=== PATIENT | male | born 1960 | race Caucasian/White ===

== ENCOUNTER 2024-07-20 14:28 | Observation (INO) ==
--- OUTSIDE RECORDS SUMMARY | 2024-07-20 14:33 | External Medical Summary | Summary of Care ---
Author Name Unknown Organization [facility] Address [address] [place] [address] Phone [phone] Care Team Providers Care Sales Architect Name Role Phone Elaine Granados DO Primary Care Provider Reason for Visit * Reason Comments eRx-Medication Refill Encounter Details Date Type Department Care Team (Late st Contact Info) Description 07/05/[address] [facility] [address] [place] [address] Elaine Granados DO [address] [facility] [place] [address] Anxiety state Allergies No known active allergiesdocumented as of this encounter (statuses as of 07/05/2024) Medications ASPIRIN 81 MG PO TABS Take by mouth 2 times a day. Active cholecalciferol , VIT D3, (VITAMIN D3) 1000 UNITS Tablet Take 1 Tablet by mouth in the morning. 6 Active Eye Drops 0.012-0.2 % Ophthalmic Solution (Naphazoline-Po lyethyl Glycol) Instill 1 Drop into both eyes as needed. Active Vitamin C 500 MG Oral Tablet (Ascorbic Acid) Take 1 Tablet by mouth in the morning. Active Potassium 99 MG Oral Tablet Take 1 Tablet by mouth in the morning. Active Iron 142 (45 Fe) MG Oral Tablet Extended Release Take by mouth 2 times a day. Active Magnesium 250 MG Oral Tablet Take 1 Tablet by mouth in the morning and 1 Tablet before bedtime. Active Super B-Complex + Vitamin C Oral Tablet Take by mouth 2 times a day. Active Vitamin E 45 MG (100 UNIT) Oral Capsule Take by mouth 2 times a day. Active guaiFENesin ER 600 MG Oral Tablet Extended Release 12 Hour (Mucinex)Indica tions:Protracte d URI Take 1 Tablet by mouth 2 times a day as needed for Congestion. Take with plenty of water. Do not cut, crush or chew 40 Tablet 2 3 Active busPIRone HCl 10 MG Oral Tablet (Buspar)Indicat ions:Mood disorder (HCC) Take 1 Tablet by mouth in the morning and 1 Tablet before bedtime. 180 Tablet 3 4 Active Carvedilol 6.25 MG Oral Tablet (Coreg) Take 1 Tablet by mouth in the morning and 1 Tablet before bedtime. 68 Tablet 11 4 Active Omeprazole 20 MG Oral Capsule Delayed Release (PriLOSEC) TAKE 1 CAPSULE BY MOUTH ONCE DAILY at least 1 hour before first meal 90 Capsule 4 Active Tadalafil 5 MG Oral Tablet (Cialis)Indicat ions:Erectile dysfunction, unspecified erectile dysfunction type Take 1 Tablet by mouth in the morning. prior to intercourse , no more than 1 dose in 24 hours. 30 Tablet 5 Active Ventolin HFA 108 (90 Base) MCG/ACT Inhalation Aerosol Solution Inhale 2 Puffs by mouth every 4 hours as needed for Wheezing. 18 g 5 Active traZODone HCl 100 MG Oral Tablet (Desyrel) TAKE 1 TABLET BY MOUTH AT BEDTIME 90 Tablet 3 5 Active Rosuvastatin Calcium 40 MG Oral Tablet (Crestor) Take 1 Tablet by mouth at bedtime. 90 Tablet 1 5 Active Losartan Potassium 50 MG Oral Tablet (Cozaar)Indicat ions:HTN, goal below 130/80 Take 1 Tablet by mouth in the morning. 90 Tablet 1 5 Active Terazosin HCl 1 MG Oral Capsule (Hytrin)Indicat ions:HTN, goal below 130/80 Take 1 Capsule by mouth at bedtime. 90 Capsule 1 5 Active valACYclovir HCl 500 MG Oral Tablet (Valtrex) Take 1 Tablet by mouth in the morning and 1 Tablet before bedtime. 180 Tablet 1 5 Active Escitalopram Oxalate 10 MG Oral Tablet (Lexapro)Indica tions:Anxiety state Take 1 Tablet by mouth in the morning. 30 Tablet 5 5 Active Escitalopram Oxalate 10 MG Oral Tablet (Lexapro)Indica tions:Anxiety state Take 1 Tablet by mouth in the morning. 30 Tablet 2 5 025 Discontinued documented as of this encounter (statuses as of 07/05/2024) Active Problems Problem Noted Date Diagnosed Date Mood disorder 01/09/2023 YISEL (generalized anxiety disorder) 11/09/2022 Lumbar degenerative disc disease 11/09/2022 Gastroesophageal reflux disease with esophagitis 01/03/2019 Dyslipidemia 03/15/2009 Overview (03/15/2009): Per Lipid Taxonomy. HTN, goal below 130/80 02/18/2009 Overview (02/18/2009): Modified per HTN protocol #16. documented as of this encounter (statuses as of 07/05/2024) Resolved Problems Problem Noted Date Diagnosed Date Resolved Date Thrombocytopenia 12/15/2021 12/15/2021 Trigger finger of right thumb 06/02/2020 11/09/2022 Carpal tunnel syndrome, bilateral 01/30/2020 11/09/2022 Mood disorder 01/03/2019 11/09/2022 Corneal scar 06/03/2012 11/09/2022 Swelling of right testicle 03/01/2012 0 05/17/2012 Herpes simplex keratitis 10/01/2007 HTN, goal to be determined 05/09/2007 1 04/20/2008 Overview (02/18/2009): Modified per HTN protocol #16. Dyslipidemia, goal LDL below 160 05/09/2007 03/15/2009 Overview (03/15/2009): Per Lipid Taxonomy. documented as of this encounter (statuses as of 07/05/2024) Immunizations Name Administration Dates Next Due COVID-19 mRNA, LNP-s, No Pre serve, 2-Dose Series (Moderna) 07/26/2020,06/28/2020 COVID-19, mRNA, LNP-s, PF, B ooster, 100mcg/0.5mg (Moderna) 07/21/2021,02/11/2021 Pneumococcal Conjugate Vacci ne, 20-valent ([id number]) 05/02/2024 Seasonal Influenza Vac., MDV , IM, 0.5 mL (Fluzone) 01/13/2014,12/19/2011,02/22/2011 Seasonal Influenza, PF, 6 M & above, IM , (FluLaval or Fluzone) 02/16/2023,12/15/2021,12/09/2020,2019 Seasonal Influenza, Quadriva lent, No Preserve, IM 12/15/2015 Seasonal Influenza, Trivalen t, (IIV3), PF, (Fluzone) 05/02/2024 TDAP (age 10 and older)(Boostrix) 12/09/2020 TDAP, Age 7 and older, IM (Adacel) 10/27/2010 Zoster Vaccine Recombinant (Shingrix) 03/15/2020 ,12/12/2017 documented as of this encounter Social History Tobacco Use Types Packs/Day Years Used Date Smoking Tobacco: Never Smokeless Tobacco: Never Alcohol Use Standard Drinks/Week Comments Yes 0 (1 standard drink = 0.6 oz pur e alcohol) glass of wine on occasion PHQ-2 Answer Date Recorded PHQ Adult Total Score 0 05/02/2024 Hunger Vital Sign Answer Date Recorded Within the past 12 months, y ou worried that your food would run out before you got the money to buy more. Never true 05/02/19 25 Within the past 12 months, t he food you bought just didn't last and you didn't have money to get more. Never true 05/02/2024 Childcare Answer Date Recorded Do you feel overwhelmed with taking care of a child, family member or friend? No 05/02/2024 Does your family need help f inding childcare? (Household - for ages 0-17 years) Not on file 05/02/2024 Clothing Answer Date Recorded Have you been unable to get clothing when it was really needed? No 05/02/2024 Is your family able to get c lothes or diapers when needed? (Household - for ages 0-17 years) Not on file 05/02/2024 Personal Safety Answer Date Recorded Do you feel unsafe or have concerns for your saf ety? No 05/02/2024 Do you have concerns for you r family's safety? (Household - for ages 0-17 years) Not on file 05/02/2024 Utilities Answer Date Recorded Do you have trouble paying y our heating, water, or electric bill? No 05/02/2024 Is your family able to pay t he heat, water, or electric bill? (Household - for ages 0-17 years) Not on file 05/02/2024 Does your family have access to good internet? (Household - for ages 0-17 years) Not on file 05/02/2024 Employment Status Answer Date Recorded Are you unemployed or without regular income? No 05/02/2024 Does the household have a re lar source of income? (Household - for ages 0-17 years) Not on file 05/02/2024 Social Connections Answer Date Recorded How often do you feel lonely or isolated from th ose around you? Never 05/02/2024 Financial Resource Strain Answer Date R ecorded Do you have any trouble payi ng for your medications, or do you think you might in the future? No 05/02/2024 Does your family have troubl e paying for medicine? (Household - for ages 0-17 years) Not on file 05/02/2024 Transportation Needs Answer Date Record ed Do you have trouble getting a ride to medical visits or work? (Adult - for ages 18 years and over) Not on file 05/02/2024 Does your family have a hard time getting a ride to doctors visits? (Household - for ages 0-17 years) Not on file 05/02/2024 Has lack of transportation k ept you from medical appointments, meetings, work, or from getting things needed for daily living? Check all that apply. No 05/02/2024 Do you (or your family) have trouble finding or paying for a ride (transportation)? (Household - for ages 0-17 years) Not on file 05/02/2024 Housing Stability Answer Date Recorded Do you currently live in a s helter or have no steady place to sleep at night? No 05/02/2024 Do you think you are at risk of becoming homeless? (Adult - for ages 18 years and over) Not on file 05/02/2024 Does your family worry about paying for your home or becoming homeless? (Household - for ages 0-17 years) Not on file 0 05/02/2024 Are you homeless or worried that you might be in the future? No 05/02/2024 Are you (or your family) brenna eless or worried that you might be in the future? (Household - for ages 0-17 years) Not on file Food Insecurity Answer Date Recorded Do you need food for this week? No 05/02/2024 Are you able to get enough f ood for your family? (Household - for ages 0-17 years) Not on file 05/02/2024 Does your family need food t his week? (Household - for ages 0-17 years) Not on file 05/02/2024 Do you always have enough fo od for your family? (Household - for ages 0-17 years) Not on file 05/02/2024 Food Insecurity Answer Date Recorded Within the past 12 months, y ou worried that your food would run out before you got the money to buy more. Never true 05/02/19 25 Within the past 12 months, t he food you bought just didn't last and you didn't have money to get more. Never true 05/02/2024 Do you need food for this week? No 05/02/2024 Sex and Gender Information Value Date Recorded Sex Assigned at Male 11/09/2022 2:08 PM EDT Legal Sex Male 4:56 AM EST Gender Identity Male 11/09/2022 2:08 PM EDT Sexual Orientation Straight 11/09/2022 2: 08 PM EDT documented as of this encounter Miscellaneous Notes * Telephone Encounter - Mena Higgins [facility] - 07/05/2024 4:13 PM EDT Signed Prescriptions: Disp Refills Escitalopram Oxalate 10 MG Oral Tablet (Le*30 Tab*5 Sig: Take 1Tablet by mouth in the morning.Authorizing Provider: ELAINE GRANADOS User: MENA HIGGINS documented in this encounter Plan of Treatment Upcoming Encounters Date Type Department Care Team (Late st Contact Info) Description 11/07/2024 9:00 AM EDT Office Visit Nephrology, [facility] [address] [place] [address] [facility] [address] [facility] [id number] 05/07/2025 8:00 AM EST Office Visit Cardiology, [facility] [address] [place] [phone] Janet Carr PA-C [address] [place] [address] 07/03/2025 9:00 AM EDT Office Visit OphthalmologyDavid [address] [place] [address] [facility] [place] [phone] Scheduled Procedures Name Priority Associated Diagnoses Date/Ti me COLONOSCOPY FLEXIBLE PROXIMA L DIAGNOSTIC Recall Encounter for screening colonoscopy Health Maintenance Due Date Last Done Comments Cologuard 2005 Fecal Occult Blood Test 2005 Sigmoidoscopy 2005 COVID-19 Vaccine ( season) 2023 07/21/2021, 02/11/2021, 07/26/2020, Additional history exists Depression Screening 05/02/2025 05/02/2024 GFR 05/20/2025 05/20/2024, 04/04, 03/06/2023, Additional history exists Colonoscopy 12/06/2026 12/06/2021, 08/2021, 12/30/2015, Additional history exists Colorectal Cancer Screening 12/06/2026 Albumin/Creatinine Ratio 05/02/2027 025, 12/15/2021, 02/03/2014, Additional history exists Lipid Panel 05/01/2029 05/01/2024, 07/2022, 04/20/2022, Additional history exists DTap/Tdap Vaccines (3 - Td or Tdap) 12/09/2030 12/09/2020, 10/27/2010 Zoster Vaccines Completed 03/15/2020, 12/12/2017 RETIRED - COLONOSCOPY-EVERY 5 YRS AGES 18-100 Discontinued 12/06/2021, 12/06/2021, 12/30/2015, Additional history exists Influenza Vaccine (FLU shot) Completed 05/02/2024, 02/16/2023, 12/15/2021, Additional history exists Pneumococcal Vaccine: 50+ Years Completed 05/02/2024 HPV (Gardasil) Vaccine Aged Out No lo nger eligible based on patient's age to complete this topic Hepatitis B Vaccine Aged Out No longe r eligible based on patient's age to complete this topic MENINGOCOCCAL (MENACTRA/MENVEO) Aged Out No longer eligible based on patient's age to complete this topic Meningitis B Vaccine (Bexsero/Trumemba) Aged Out No longer eligible based on patient's age to complete this topic documented as of this encounter Medical Devices Implanted Type Area Director Gift Device Identifier Shelf Expiration Date Model / Serial / Lot Mesh 3dmax 3.1x5.3in Lft Med - [id number] Implanted:Qty: 1 on 12/31/2020 by Brendan Landers MD at [facility] Left: Groin CR BARD : DAVOL 04/29/2025 [id number] / / [id number] Plt A2 Mtp Cp Rt T8 - [id number] Implanted:Qty: 1 on 01/23/2023 by Ching Patiño DPM at OR [facility] Right: Foot HUA : TRAUMA [id number] / / Screw Lag Cp 3.6x26mm - [id number] Implanted:Qty: 1 on 01/23/2023 by Ching Patiño DPM at OR [facility] Right: Foot HUA : ORTHOPA[employer]ICS [id number] / / Screw Bn T8 Ft St Lk 2.7x16mm - [id number] Implanted:Qty: 2 on 01/23/2023 by Ching Patiño DPM at OR [facility] Right: Foot HUA : ORTHOP[employer]ICS [id number] / / Screw Cortical 2.7x18mm - [id number] Implanted:Qty: 1 on 01/23/2023 by Ching Patiño DPM at OR [facility] Right: Foot HUA : ORTH[employer] [id number] / / Screw Locking 2.7x20mm - [id number] Implanted:Qty: 1 on 01/23/2023 by Ching Patiño DPM at [facility] Right: Foot HUA : ORTHOP[employer] [id number] / / documented as of this encounter Visit Diagnoses Diagnosis Anxiety state Anxiety state, unspecified documented in this encounter Advance Directives * Full Code (Latest Code Status on File) Date Activated Date Inactivated Comments 12/31/2020 10:43 AM 12/31/2020 6:05 PM This order reflects the patients wishes and were consensually agreed upon. Care Teams Sales Architect Relationship Specialty Start Date End Date Elaine Granados DO [address] [place] [address] PCP - General Family Medicine 10/01/20 documented as of this encounter
--- OUTSIDE RECORDS SUMMARY | 2024-07-20 14:33 | External Medical Summary | Summary of Care ---
Author Name Unknown Organization [facility] Address [address] [facility] [place] [address] Phone [phone] Care Team Providers Care Bullet Maker Name Role Phone Elaine Granados DO Primary Care Provider Reason for Visit * Reason Comments eRx-Medication Refill Encounter Details Date Type Department Care Team (Late st Contact Info) Description 06/08/2024 Refill Family Practice [facility] [address] [place] [address] Elaine Granados DO 132 [facility] [place] [address] HTN, goal below 130/80 Allergies No known active allergiesdocumented as of this encounter (statuses as of 06/09/2024) Medications ASPIRIN 81 MG PO TABS Take [...] before first meal 90 Capsule 4 Active Escitalopram Oxalate 10 MG Oral Tablet (Lexapro)Indica tions:Anxiety state Take 1 Tablet by mouth in the morning. 30 Tablet 2 5 Active Tadalafil 5 MG Oral Tablet (Cialis)Indicat [...] before bedtime. 180 Tablet 1 5 Active Terazosin HCl 1 MG Oral Capsule (Hytrin)Indicat ions:HTN, goal below 130/80 Take 1 Capsule by mouth at bedtime. 90 Capsule 3 4 025 Discontinued valACYclovir HCl 500 MG Oral Tablet (Valtrex) Take 1 Tablet by mouth in the morning and 1 Tablet before bedtime. 180 Tablet 3 4 025 Discontinued documented as of this encounter (statuses as of 06/09/2024) Active Problems Problem Noted Date Diagnosed Date Mood disorder 01/09/2023 YISEL (generalized anxiety disorder) 11/09/2022 Lumbar degenerative disc disease 11/09/2022 Gastroesophageal reflux disease with esophagitis 01/03/2019 Dyslipidemia 03/15/2009 Overview (03/15/2009): Per Lipid Taxonomy. HTN, goal below 130/80 02/18/2009 Overview (02/18/2009): Modified per HTN protocol #16. documented as of this encounter (statuses as of 06/09/2024) Resolved Problems Problem Noted Date Diagnosed Date [...] as of this encounter (statuses as of 06/09/2024) Immunizations Name Administration Dates Next Due COVID-19 mRNA, LNP-s, No Pre serve, 2-Dose Series (Moderna) 07/26/2020,06/28/2020 COVID-19, mRNA, LNP-s, PF, B ooster, 100mcg/0.5mg (Moderna) 07/21/2021,02/11/2021 Pneumococcal Conjugate Vacci ne, 20-valent ([id number]) 05/02/2024 Seasonal Influenza Vac., MDV , IM, [...] encounter Miscellaneous Notes * Telephone Encounter - Chanda Vu RPh - 06/09/2024 2:49 PM EDTSigned Prescriptions: Disp Refills Terazosin HCl 1 MG Oral Capsule (Hytrin) 90 Cap*1 Sig: Take 1 Capsule by mouth at bedtime.Authorizing Provider: ELAINE GRANADOS User: CHANDA VU valACYclovir HCl 500 MG Oral Tablet (Valtr*180 Ta*1 Sig: Take 1 Tablet by mouth in the morning and 1 Tablet before bedtime.Authorizing Provider: ELAINE GRANADOS User: CHANDA VU documented in this encounter Plan of Treatment Upcoming Encounters Date Type Department Care Team (Late st Contact Info) Description 11/07/2024 9:00 AM EDT Office Visit Nephrology, [facility] [address] [facility] [place] [address] Chitra Chao MD [address] [place] [phone] 05/07/2025 8:00 AM EST Office Visit Cardiology, [facility] [address] [facility] [place] [address] Janet Carr PA-C [address] [place] [address] 07/03/2025 9:00 AM EDT Office Visit Ophthalmology, [facility] [address] [place] [address] Elito Guaman DO [address] [place] [address] Scheduled Procedures Name Priority Associated Diagnoses Date/Ti [...] this encounter Medical Devices Implanted Type Area Advertising Job Titles Device Identifier Shelf Expiration Date Model / Serial / Lot Mesh 3dmax 3.1x5.3in Lft Med - [id number] Implanted:Qty: 1 on 12/31/2020 by Brendan Landers MD at OR [facility] Left: Groin CR BARD : DAVOL 04/29/2025 [id number] / / [id number] Plt A2 Mtp Cp Rt T8 - [id number] Implanted:Qty: 1 on 01/23/2023 by Ching Patiño DPM at [facility] Right: Foot HUA : TRAUMA [id number] / / Screw Lag Cp 3.6x26mm - [id number] Implanted:Qty: 1 on 01/23/2023 by Ching Patiño DPM at [facility] Right: Foot HUA : ORTH[employer]ICS [id number] / / Screw Bn T8 Ft St Lk 2.7x16mm - [id number] Implanted:Qty: 2 on 01/23/2023 by Ching Patiño DPM at [facility] Right: Foot HUA : ORTH[employer] [id number] / / Screw Cortical 2.7x18mm - [id number] Implanted:Qty: 1 on 01/23/2023 by Ching Patiño DPM at [facility] Right: Foot HUA : ORTH[employer] [id number] / / Screw Locking 2.7x20mm - [id number] Implanted:Qty: 1 on 01/23/2023 by Ching Patiño DPM at [facility] Right: Foot HUA : ORTHOPAEDICS [id number] / / documented as of this encounter Visit Diagnoses Diagnosis HTN, goal below 130/80 Unspecified essential hypertension documented in this encounter Advance Directives * Full Code (Latest Code Status on File) Date Activated Date Inactivated Comments 12/31/2020 10:43 AM 12/31/2020 6:05 PM This order reflects the patients wishes and were consensually agreed upon. Care Teams Bullet Maker Relationship Specialty Start Date End Date Elaine Granados DO [address] [place] [address] PCP - General Family Medicine 10/01/20 documented as of this encounter
--- OUTSIDE RECORDS SUMMARY | 2024-07-20 14:33 | External Medical Summary | Summary of Care ---
Author Name Unknown Organization [facility] Address [address] [place] [address] Phone [phone] Care Team Providers Care Paper Box Maker Name Role Phone Derrick Granados Primary Care Provider Reason for Visit * Reason Onset Date Comments Test Results 05/22/2024 Encounter Details Date Type Department Care Team (Late st Contact Info) Description 05/22/2024 Telephone Nephrology, [place] [address] [place] [address] Jose R James MD 200 [facility] [place] [address] Test Results Allergies No known active allergiesdocumented as of this encounter (statuses as of 05/22/2024) Medications ASPIRIN 81 MG PO TABS Take by mouth 2 times a day. Active cholecalciferol, VIT D3, (VITAMIN D3) 1000 UNITS Tablet Take 1 Tablet by mouth in the morning. 12/13/2015 Active Eye Drops 0.012-0.2 % Ophthalmic Solution (Naphazoline-Andriy yethyl Glycol) Instill 1 Drop into both eyes [...] MG Oral Tablet Extended Release 12 Hour (Mucinex)Indicat ions:Protracted URI Take 1 Tablet by mouth 2 times a day as needed for Congestion. Take with plenty of water. Do not cut, crush or chew 40 Tablet 2 01/30/2023 Active busPIRone HCl 10 MG Oral Tablet (Buspar)Indicati ons:Mood disorder (HCC) Take 1 Tablet by mouth in the morning and 1 Tablet before bedtime. 180 Tablet 3 06/07/2023 Active Losartan Potassium 50 MG Oral Tablet (Cozaar)Indicati ons:HTN, goal below 130/80 Take 1 Tablet by mouth in the morning. 90 Tablet 3 06/07/2023 Active Rosuvastatin Calcium 40 MG Oral Tablet (Crestor) Take 1 Tablet by mouth at bedtime. 90 Tablet 3 06/07/2023 Active Terazosin HCl 1 MG Oral Capsule (Hytrin)Indicati ons:HTN, goal below 130/80 Take 1 Capsule by mouth at bedtime. 90 Capsule 3 06/07/2023 Active valACYclovir HCl 500 MG Oral Tablet (Valtrex) Take 1 Tablet by mouth in the morning and 1 Tablet before bedtime. 180 Tablet 3 06/07/2023 Active Carvedilol 6.25 MG Oral Tablet (Coreg) Take 1 Tablet by mouth in the morning and 1 Tablet before bedtime. 68 Tablet 11 06/12/2023 Active Omeprazole 20 MG Oral Capsule Delayed Release (PriLOSEC) TAKE 1 CAPSULE BY MOUTH ONCE DAILY at least 1 hour before first meal 90 Capsule 02/27/2024 Active Escitalopram Oxalate 10 MG Oral Tablet (Lexapro)Indicat ions:Anxiety state Take 1 Tablet by mouth in the morning. 30 Tablet 2 04/13/2024 Active Tadalafil 5 MG Oral Tablet (Cialis)Indicati ons:Erectile dysfunction, unspecified erectile dysfunction type Take 1 Tablet by mouth in the morning. prior to intercourse, no more than 1 dose in 24 hours. 30 Tablet 05/02/2024 Active Ventolin HFA 108 (90 Base) MCG/ACT Inhalation Aerosol Solution Inhale 2 Puffs by mouth every 4 hours as needed for Wheezing. 18 g 05/05/2024 Active traZODone HCl 100 MG Oral Tablet (Desyrel) TAKE 1 TABLET BY MOUTH AT BEDTIME 90 Tablet 3 05/12/2024 Active documented as of this encounter (statuses as of 05/22/2024) Active Problems Problem Noted Date Diagnosed Date Mood disorder 01/09/2023 YISEL (generalized anxiety disorder) 11/09/2022 Lumbar degenerative disc disease 11/09/2022 Gastroesophageal reflux disease with esophagitis 01/03/2019 Dyslipidemia 03/15/2009 Overview (03/15/2009): Per Lipid Taxonomy. HTN, goal below 130/80 02/18/2009 Overview (02/18/2009): Modified per HTN protocol #16. documented as of this encounter (statuses as of 05/22/2024) Resolved Problems Problem Noted Date Diagnosed Date [...] as of this encounter (statuses as of 05/22/2024) Immunizations Name Administration Dates Next Due COVID-19 mRNA, LNP-s, No Pre serve, 2-Dose Series (Moderna) 07/26/2020,06/28/2020 COVID-19, mRNA, LNP-s, PF, B ooster, 100mcg/0.5mg (Moderna) 07/21/2021,02/11/2021 Pneumococcal Conjugate Vacci ne, 20-valent ([id number]) 05/02/2024 Seasonal Influenza Vac., MDV , IM, [...] encounter Miscellaneous Notes * Telephone Encounter - Tamie Rutherford LPN - 05/22/2024 9:33 AM EST Pt is made aware labs stable almost completely normal Continue the same * Telephone Encounter - Tamie Rutherford LPN - 05/22/2024 9:33 AM EST ----- Message from Jose R James MD sent at 05/21/2024 12:29 PM EST ----- Kidney function stable and almost completely normal continue same documented in this encounter Plan of Treatment Upcoming Encounters Date Type Department Care Team (Late st Contact Info) Description 11/07/2024 9:00 AM EDT Office Visit Nephrology, [facility] 200 [facility] [place] [address] Chitra Chao MD [address] [place] [phone] 05/07/2025 8:00 AM EST Office Visit Cardiology, [facility] [address] [place] [address] Janet Carr PA-C [address] [place] [address] 07/03/2025 9:00 AM EDT Office Visit OphthalmologyDavid [address] [place] [address] Eliot Guaman DO [address] [place] [address] Scheduled Procedures Name Priority Associated Diagnoses Date/Ti [...] Additional history exists Lipid Panel 05/01/2029 05/01/2024, 12/07/2022, 04/20/2022, Additional history exists DTap/Tdap Vaccines (3 [...] this encounter Medical Devices Implanted Type Area Refrigeration Mechanic Helper Device Identifier Shelf Expiration Date Model / Serial / Lot Mesh 3dmax 3.1x5.3in t Med - [id number] Implanted:Qty: 1 on 12/31/2020 by Brendan Landers MD at OR [facility] Left: Groin CR BARD : DAVOL 04/29/2025 [id number] / / [id number] Plt A2 Mtp Cp Rt T8 - [id number] Implanted:Qty: 1 on 01/23/2023 by Ching Patiño DPM at OR [facility] Right: Foot HUA : TRAUMA [id number] / / Screw Lag Cp 3.6x26mm - [id number] Implanted:Qty: 1 on 01/23/2023 by Ching Patiño DPM at OR [facility] Right: Foot HUA : ORTHOPAEDICS [id number] / / Screw Bn T8 Ft St Lk 2.7x16mm - [id number] Implanted:Qty: 2 on 01/23/2023 by Ching Patiño DPM at OR [facility] Right: Foot HUA : ORTHOPAEDICS [id number] / / Screw Cortical 2.7x18mm - [id number] Implanted:Qty: 1 on 01/23/2023 by Ching Patiño DPM at OR [facility] Right: Foot HUA : ORTHOPAEDICS [id number] / / Screw Locking 2.7x20mm - [id number] Implanted:Qty: 1 on 01/23/2023 by Ching Patiño DPM at OR [facility] Right: Foot HUA : ORTHOPAEDICS [id number] / / documented as of this encounter Advance Directives * Full Code (Latest Code Status on File) Date Activated Date Inactivated Comments 12/31/2020 10:43 AM 12/31/2020 6:05 PM This order reflects the patients wishes and were consensually agreed upon. Care Teams Paper Box Maker Relationship Specialty Start Date End Date Derrick Granados DO 132 [facility] [place] [address] PCP - General Family Medicine 10/01/20 documented as of this encounter
--- OUTSIDE RECORDS SUMMARY | 2024-07-20 14:33 | External Medical Summary | Summary of Care ---
Author Name Unknown Organization [facility] Address [address] [facility] [address] Phone [phone] Care Team Providers Care Clerk Television Production Name Role Phone Derrick Granados DO Primary Care Provider Reason for Visit * Reason Comments eRx-Medication Refill Encounter Details Date Type Department Care Team (Late st Contact Info) Description 07/04/2024 Refill Cardiology, [facility] [address] [place] [phone] Brendan Yoo DO [address] [place] [address] Allergies No known active allergiesdocumented as of this encounter (statuses as of 07/06/2024) Medications ASPIRIN 81 MG PO TABS Take [...] before bedtime. 180 Tablet 3 4 Active Omeprazole 20 MG Oral Capsule [...] before bedtime. 180 Tablet 1 5 Active Carvedilol 6.25 MG Oral Tablet (Coreg) TAKE ONE TABLET BY MOUTH IN THE MORNING AND ONE TABLET BEFORE BEDTIME 180 Tablet 1 5 Active Carvedilol 6.25 MG Oral Tablet (Coreg) Take 1 Tablet by mouth in the morning and 1 Tablet before bedtime. 68 Tablet 11 4 025 Discontinued documented as of this encounter (statuses as of 07/06/2024) Active Problems Problem Noted Date Diagnosed Date Mood disorder 01/09/2023 YISEL (generalized anxiety disorder) 11/09/2022 Lumbar degenerative disc disease 11/09/2022 Gastroesophageal reflux disease with esophagitis 01/03/2019 Dyslipidemia 03/15/2009 Overview (03/15/2009): Per Lipid Taxonomy. HTN, goal below 130/80 02/18/2009 Overview (02/18/2009): Modified per HTN protocol #16. documented as of this encounter (statuses as of 07/06/2024) Resolved Problems Problem Noted Date Diagnosed Date [...] as of this encounter (statuses as of 07/06/2024) Immunizations Name Administration Dates Next Due COVID-19 mRNA, LNP-s, No Pre serve, 2-Dose Series (Moderna) 07/26/2020,06/28/2020 COVID-19, mRNA, LNP-s, PF, B ooster, 100mcg/0.5mg (Moderna) 07/21/2021,02/11/2021 Pneumococcal Conjugate Vacci ne, 20-valent ([id number]) 05/02/2024 Seasonal Influenza Vac., MDV , IM, [...] encounter Miscellaneous Notes * Telephone Encounter - Frank Castillo, [facility] - 07/06/2024 11:22 AM EDT Signed Prescriptions: Disp Refills Carvedilol 6.25 MG Oral Tablet (Coreg) 180 Ta*1 Sig: TAKE ONE TABLET BY MOUTH IN THE MORNING AND ONE TABLET BEFORE BEDTIMEAuthorizing Provider: AUREA ARCOS User: FRANK CASTILLO * Telephone Encounter - Interface, [facility] - 07/06/2024 6:02 AM EDT Pending Prescriptions: Disp Refills Carvedilol 6.25 MG Oral Tablet [Pharmacy M*68 Tab*0 Sig: TAKE ONE TABLET BY MOUTH IN THE MORNING AND ONE TABLET BEFORE BEDTIME * Telephone Encounter - Bryan Velázquez two - 07/04/2024 9:32 PM EDTPending Prescriptions: Disp Refills Carvedilol 6.25 MG Oral Tablet [Pharmacy M*68 Tab*0 Sig: TAKE ONE TABLET BY MOUTH IN THE MORNING AND ONE TABLET BEFORE BEDTIME * Telephone Encounter - Bryan Velázquez - 07/04/2024 9:29 PM EDT Did you pend patient's preferred pharmacy and medication before forwarding?yes Pharmacy: [facility] [id number] Pending Prescriptions: Disp Refills Carvedilol 6.25 MG Oral Tablet (Coreg) [P*68 Tab*0 Sig: TAKE ONE TABLET BY MOUTH IN THE MORNING AND ONE TABLET BEFORE BEDTIME Last Visit: Visit date not found (in office), Visit date not found (telemedicine) Next Visit: 05/07/2025 If no future appointments scheduled, and last appointment is greater than a year ago, please schedule patient for a follow-up appointment Last date the medication was ordered: 06/12/2023 Is this request for a controlled substance?No Urine Drug Screen:No results found for this or any previous visit. Patient Phone Numbers Labs: Lab Results Component Value Date/Time CREAT 1.4 (H) 05/20/2024 11:58 AM CREAT 1.2 10/23/2019 08:42 AM POTASSIUM 4.1 05/20/2024 11:58 AM POTASSIUM 4.3 10/23/2019 08:42 AM TSH 0.84 12/09/2020 02:28 PM TSH 1.11 09/24/2018 04:58 PM LDL 64 05/01/2024 10:40 AM LDL 127 02/28/2020 09:22 AM LDL NOT APPLICABLE 02/28/2020 09:22 AM ALT 22 05/01/2024 10:40 AM ALT 30 10/11/2018 08:24 AM documented in this encounter Plan of Treatment Upcoming Encounters Date Type Department Care Team (Late st Contact Info) Description 11/07/2024 9:00 AM EDT Office Visit Nephrology, [address] [place] [address] Chitra Chao MD [address] [place] [address] 05/07/2025 8:00 AM EST Office Visit Cardiology, [facility] [address] [place] [phone] Janet Carr PA-C [address] [place] [phone] 07/03/2025 9:00 AM EDT Office Visit Ophthalmology, [place] [address] [place] [address] Eliot Guaman, DO [address] [place] [address] Scheduled Procedures Name Priority Associated Diagnoses Date/Ti [...] this encounter Medical Devices Implanted Type Area Typing Bookkeeper Device Identifier Shelf Expiration Date Model / Serial / Lot Mesh 3dmax 3.1x5.3in Lft Med - [id number] Implanted:Qty: 1 on 12/31/2020 by Brendan Landers MD at OR [facility] Left: Groin CR BARD : DAVOL 04/29/2025 [id number] / / [id number] Plt A2 Mtp Cp Rt T8 - [id number] Implanted:Qty: 1 on 01/23/2023 by Ching Patiño DPM at OR [facility] Right: Foot HUA : TRAUMA [id number] / / Screw Lag Cp 3.6x26mm - [id number] Implanted:Qty: 1 on 01/23/2023 by Ching Patiño DPM at OR [facility] Right: Foot HUA : ORTHOPAEDICS [id number] / / Screw Bn T8 Ft St Lk 2.7x16mm - [id number] Implanted:Qty: 2 on 01/23/2023 by Ching Patiño DPM at OR [facility] Right: Foot HUA : ORTHOPAEDICS [id number] / / Screw Cortical 2.7x18mm - [id number] Implanted:Qty: 1 on 01/23/2023 by Ching Patiño DPM at OR [facility] Right: Foot HUA : ORTHOPAEDICS [id number] / / Screw Locking 2.7x20mm - [id number] Implanted:Qty: 1 on 01/23/2023 by Ching Patiño DPM at OR [facility] Right: Foot HUA : ORTHOPAEDICS [id number] / / documented as of this encounter Advance Directives * Full Code (Latest Code Status on File) Date Activated Date Inactivated Comments 12/31/2020 10:43 AM 12/31/2020 6:05 PM This order reflects the patients wishes and were consensually agreed upon. Care Teams Clerk Television Production Relationship Specialty Start Date End Date Derrick Granados DO [address] [place], [place] [address] [place] [address] PCP - General Family Medicine 10/01/20 documented as of this encounter
--- OUTSIDE RECORDS SUMMARY | 2024-07-20 14:33 | External Medical Summary | Summary of Care ---
Author Name Unknown Organization [facility] Address [address] [facility] [place] [address] Phone [phone] Care Team Providers Care Project Manager/Team Coach Name Role Phone Elaine Granados DO Primary Care Provider Reason for Visit * Reason Comments eRx-Medication Refill Encounter Details Date Type Department Care Team (Late st Contact Info) Description 05/27/2024 Refill Family Practice [facility] [address] [place] [address] Elaine Granados DO 132 [facility] [place] [address] HTN, goal below 130/80 Allergies No known active allergiesdocumented as of this encounter (statuses as of 05/28/2024) Medications ASPIRIN 81 MG PO TABS Take [...] before bedtime. 180 Tablet 3 4 Active Terazosin HCl 1 MG Oral Capsule (Hytrin)Indicat ions:HTN, goal below 130/80 Take 1 Capsule by mouth at bedtime. 90 Capsule 3 4 Active valACYclovir HCl 500 MG Oral Tablet [...] the morning. 90 Tablet 1 5 Active Losartan Potassium 50 MG Oral Tablet (Cozaar)Indicat ions:HTN, goal below 130/80 Take 1 Tablet by mouth in the morning. 90 Tablet 3 4 025 Discontinued Rosuvastatin Calcium 40 MG Oral Tablet (Crestor) Take 1 Tablet by mouth at bedtime. 90 Tablet 3 4 025 Discontinued documented as of this encounter (statuses as of 05/28/2024) Active Problems Problem Noted Date Diagnosed Date Mood disorder 01/09/2023 YISEL (generalized anxiety disorder) 11/09/2022 Lumbar degenerative disc disease 11/09/2022 Gastroesophageal reflux disease with esophagitis 01/03/2019 Dyslipidemia 03/15/2009 Overview (03/15/2009): Per Lipid Taxonomy. HTN, goal below 130/80 02/18/2009 Overview (02/18/2009): Modified per HTN protocol #16. documented as of this encounter (statuses as of 05/28/2024) Resolved Problems Problem Noted Date Diagnosed Date [...] as of this encounter (statuses as of 05/28/2024) Immunizations Name Administration Dates Next Due COVID-19 mRNA, LNP-s, No Pre serve, 2-Dose Series (Moderna) 07/26/2020,06/28/2020 COVID-19, mRNA, LNP-s, PF, B ooster, 100mcg/0.5mg (Moderna) 07/21/2021,02/11/2021 Pneumococcal Conjugate Vacci ne, 20-valent ([id number]) 05/02/2024 Seasonal Influenza Vac., MDV , IM, [...] encounter Miscellaneous Notes * Telephone Encounter - Peter Haji, [facility] - 05/28/2024 1:38 PM ESTSigned Prescriptions: Disp Refills Rosuvastatin Calcium 40 MG Oral Tablet (Cr*90 Tab*1 Sig: Take 1Tablet by mouth at bedtime.Authorizing Provider: ELAINE GRANADOS User: ALEXSANDRA HAJI Losartan Potassium 50 MG Oral Tablet (Coza*90 Tab*1 Sig: Take 1 Tablet by mouth in the morning.Authorizing Provider: ELAINE GRANADOS User: PETER HAJI documented in this encounter Plan of Treatment Upcoming Encounters Date Type Department Care Team (Late st Contact Info) Description 11/07/2024 9:00 AM EDT Office Visit Nephrology, [facility] [address] [place] [address] Chitra Chao MD [address] [place] [phone] 05/07/2025 8:00 AM EST Office Visit Cardiology, [facility] [address] [place] [address] Janet Carr PA-C [address] [place] [address] 07/03/2025 9:00 AM EDT Office Visit OphthalmologyDavid [address] [place] [address] Eliot Guaman DO [address] [place] [address] Scheduled Procedures Name Priority Associated Diagnoses Date/Ti [...] this encounter Medical Devices Implanted Type Area Java Golden Gate Developer Device Identifier Shelf Expiration Date Model / Serial / Lot Mesh 3dmax 3.1x5.3in t Med - [id number] Implanted:Qty: 1 on 12/31/2020 by Brendan Landers MD at OR [facility] Left: Groin CR BARD : DAVOL 04/29/2025 [id number] / / [id number] Plt A2 Mtp Cp Rt T8 - [id number] Implanted:Qty: 1 on 01/23/2023 by Ching Patiño DPM at OR [facility] Right: Foot HUA : TRAUMA [id number] / / Screw Lag Cp 3.6x26mm - [id number] Implanted:Qty: 1 on 01/23/2023 by Ching Patiño DPM at OR [facility] Right: Foot HUA : ORTHOPAEDICS [id number] / / Screw Bn T8 Ft St Lk 2.7x16mm - [id number] Implanted:Qty: 2 on 01/23/2023 by Ching Patiño DPM at OR [facility] Right: Foot HUA : ORTHOPAEDICS [id number] / / Screw Cortical 2.7x18mm - [id number] Implanted:Qty: 1 on 01/23/2023 by Ching Patiño DPM at OR [facility] Right: Foot HUA : ORTHOPAEDICS [id number] / / Screw Locking 2.7x20mm - [id number] Implanted:Qty: 1 on 01/23/2023 by Ching Patiño DPM at OR [facility] Right: Foot HUA : ORTHOPAEDICS [id number] / / documented as of this encounter Visit Diagnoses Diagnosis HTN, goal below 130/80 Unspecified essential hypertension documented in this encounter Advance Directives * Full Code (Latest Code Status on File) Date Activated Date Inactivated Comments 12/31/2020 10:43 AM 12/31/2020 6:05 PM This order reflects the patients wishes and were consensually agreed upon. Care Teams Project Manager/Team Coach Relationship Specialty Start Date End Date Elaine Granados DO [address] [place] [address] PCP - General Family Medicine 10/01/20 documented as of this encounter
--- OUTSIDE RECORDS SUMMARY | 2024-07-20 14:33 | External Medical Summary | Summary of Care ---
Author Name Unknown Organization [facility] Address [address] [place] [address] Phone [phone] Care Team Providers Care Bricklayer Helper Name Role Phone Elaine Granados DO Primary Care Provider Reason for Visit * Reason Comments eRx-Medication Refill Encounter Details Date Type Department Care Team (Late st Contact Info) Description 07/06/2024 Refill Family Practice [facility] [address] [place] [address] Elaine Granados DO [address] [place] [address] Mood disorder (HCC) Allergies No known active allergiesdocumented as of this encounter (statuses as of 07/07/2024) Medications ASPIRIN 81 MG PO TABS Take [...] or chew 40 Tablet 2 3 Active Omeprazole 20 MG Oral Capsule Delayed [...] BEFORE BEDTIME 180 Tablet 1 5 Active Escitalopram Oxalate 10 MG Oral Tablet (Lexapro)Indica tions:Anxiety state Take 1 Tablet by mouth in the morning. 30 Tablet 5 5 Active busPIRone HCl 10 MG Oral Tablet (Buspar)Indicat ions:Mood disorder (HCC) Take 1 Tablet by mouth in the morning and 1 Tablet before bedtime. 180 Tablet 3 5 Active busPIRone HCl 10 MG Oral Tablet (Buspar)Indicat ions:Mood disorder (HCC) Take 1 Tablet by mouth in the morning and 1 Tablet before bedtime. 180 Tablet 3 4 025 Discontinued documented as of this encounter (statuses as of 07/07/2024) Active Problems Problem Noted Date Diagnosed Date Mood disorder 01/09/2023 YISEL (generalized anxiety disorder) 11/09/2022 Lumbar degenerative disc disease 11/09/2022 Gastroesophageal reflux disease with esophagitis 01/03/2019 Dyslipidemia 03/15/2009 Overview (03/15/2009): Per Lipid Taxonomy. HTN, goal below 130/80 02/18/2009 Overview (02/18/2009): Modified per HTN protocol #16. documented as of this encounter (statuses as of 07/07/2024) Resolved Problems Problem Noted Date Diagnosed Date [...] as of this encounter (statuses as of 07/07/2024) Immunizations Name Administration Dates Next Due COVID-19 mRNA, LNP-s, No Pre serve, 2-Dose Series (Moderna) 07/26/2020,06/28/2020 COVID-19, mRNA, LNP-s, PF, B ooster, 100mcg/0.5mg (Moderna) 07/21/2021,02/11/2021 Pneumococcal Conjugate Vacci ne, 20-valent ([id number]) 05/02/2024 Seasonal Influenza Vac., MDV , IM, [...] No 05/02/2024 Does the household have a [facility] source of income? (Household - for ages [...] encounter Miscellaneous Notes * Telephone Encounter - Lianne Rivera CRNP - 07/07/2024 12:03 PM EDT Signed Prescriptions: Disp Refills busPIRone HCl 10 MG Oral Tablet (Buspar) 180 Ta*3 Sig: Take 1 Tablet by mouth in the morning and 1 Tablet before bedtime.Authorizing Provider: ELAINE GRANADOS User: LIANNE RVIERA * Telephone Encounter - Lianne Rivera CRNP - 07/07/2024 12:03 PM EDT Inboxologist Note: Rx refilled Inboxologist Covering Provider All replies or additional communication must be routed to the PCP * Telephone Encounter - Satinder Slaughter RP - 07/07/2024 12:00 PM EDTPending Prescriptions: Disp Refills busPIRone HCl 10 MG Oral Tablet (Buspar) 180 Ta*3 Sig: Take 1 Tablet by mouth in the morning and 1 Tablet before bedtime. * Telephone Encounter - Satinder Slaughter RP - 07/07/2024 12:00 PM EDT Refill pharmacists currently not authorized to approve refills for the pended medication(s) per refill protocol. Please approve if appropriate. Pending Prescriptions: Disp Refills busPIRone HCl 10 MG Oral Tablet (Buspar) 180 Ta*3 Sig: Take 1 Tablet by mouth in the morning and 1 Tablet before bedtime. Last Visit: 05/02/2024 (in office), 06/03/2021 (telemedicine) Next Visit: Visit date not found If no future appointments scheduled, and last appointment is greater than a year ago, please schedule patient for a follow-up appointment Last date the medication was ordered: 06-07-23 Pharmacy: [id number] [address] [facility] Is this request for a controlled substance?No [...] 10:40 AM ALT 30 10/11/2018 08:24 AM Suyapa Gonzalez.Ph. Clinical Pharmacist [facility] [address] [place] [address], [address] [place] [address] MC: [phone] 07/07/2024,12:00 PM documented in this encounter Plan of Treatment Upcoming Encounters Date Type Department Care Team (Late st Contact Info) Description 11/07/2024 9:00 AM EDT Office Visit Nephrology, [facility] [address] [place] [address] Chitra Chao MD [address] [place] [address] [place] [phone] 05/07/2025 8:00 AM EST Office Visit Cardiology, [facility] [address] [place] [phone] Janet Carr PA-C [address] [place] [address] 07/03/2025 9:00 AM EDT Office Visit Ophthalmology, [facility] [address] [place] [address] Eliot Guaman DO [address] [place] [address] Scheduled Procedures Name Priority Associated Diagnoses Date/Ti [...] Additional history exists Lipid Panel 05/01/2029 05/01/2024, 1207/2022, 04/20/2022, Additional history exists DTap/Tdap Vaccines (3 [...] this encounter Medical Devices Implanted Type Area Oil Field Rig Builder Device Identifier Shelf Expiration Date Model / Serial / Lot Mesh 3dmax 3.1x5.3in t Med - [id number] Implanted:Qty: 1 on 12/31/2020 by Brendan Landers MD at OR [facility] Left: Groin CR BARD : DAVOL 04/29/2025 [id number] / / [id number] Plt A2 Mtp Cp Rt T8 - [id number] Implanted:Qty: 1 on 01/23/2023 by Ching Patiño DPM at OR [facility] Right: Foot HUA : TRAUMA [id number] / / Screw Lag Cp 3.6x26mm - [id number] Implanted:Qty: 1 on 01/23/2023 by Ching Patiño DPM at OR [facility] Right: Foot HUA : ORTHOPAEDICS [id number] / / Screw Bn T8 Ft St Lk 2.7x16mm - [id number] Implanted:Qty: 2 on 01/23/2023 by Ching Patiño DPM at OR [facility] Right: Foot HUA : ORTHOPAEDICS [id number] / / Screw Cortical 2.7x18mm - [id number] Implanted:Qty: 1 on 01/23/2023 by Ching Patiño DPM at OR [facility] Right: Foot HUA : ORTHOPAEDICS [id number] / / Screw Locking 2.7x20mm - [id number] Implanted:Qty: 1 on 01/23/2023 by Ching Patiño DPM at OR [facility] Right: Foot HUA : ORTHOPAEDICS [id number] / / documented as of this encounter Visit Diagnoses Diagnosis Mood disorder (HCC) Unspecified episodic mood disorder documented in this encounter Advance Directives * Full Code (Latest Code Status on File) Date Activated Date Inactivated Comments 12/31/2020 10:43 AM 12/31/2020 6:05 PM This order reflects the patients wishes and were consensually agreed upon. Care Teams Bricklayer Helper Relationship Specialty Start Date End Date Elaine Granados DO [address] [place] [address] PCP - General Family Medicine 10/01/20 documented as of this encounter
--- OUTSIDE RECORDS SUMMARY | 2024-07-20 14:34 | External Medical Summary | Summary of Care ---
Author Name Unknown Organization [facility] Address [address] [facility] [place] [address] Phone [phone] Care Team Providers Care Candy Bar Attendant Name Role Phone Darwin Derrick Hollissejal DO Primary Care Provider Reason for Visit * Reason Onset Date Comments Test Results 05/06/2024 Encounter Details Date Type Department Care Team (Late st Contact Info) Description 05/06/2024 Telephone [facility] [address] [facility] [address] Jose R James MD [address] [facility] [place] [address] Test Results Allergies No known active allergiesdocumented as of this encounter (statuses as of 05/07/2024) Medications ASPIRIN 81 MG PO TABS Take [...] before bedtime. 68 Tablet 11 06/12/2023 Active traZODone HCl 100 MG Oral Tablet (Desyrel) TAKE 1 TABLET BY MOUTH AT BEDTIME 90 Tablet 1 11/26/2023 Active Omeprazole 20 MG Oral Capsule Delayed [...] in 24 hours. 30 Tablet 05/02/2024 Active Azithromycin 250 MG Oral Tablet (Zithromax) Take 2 tabs by mouth on the first day, then 1 tab daily on days two through five 6 Tablet 05/02/2024 05/07/19 25 Active Ventolin HFA 108 (90 Base) MCG/ACT Inhalation Aerosol Solution Inhale 2 Puffs by mouth every 4 hours as needed for Wheezing. 18 g 05/05/2024 Active documented as of this encounter (statuses as of 05/07/2024) Active Problems Problem Noted Date Diagnosed Date Mood disorder 01/09/2023 YISEL (generalized anxiety disorder) 11/09/2022 Lumbar degenerative disc disease 11/09/2022 Gastroesophageal reflux disease with esophagitis 01/03/2019 Dyslipidemia 03/15/2009 Overview (03/15/2009): Per Lipid Taxonomy. HTN, goal below 130/80 02/18/2009 Overview (02/18/2009): Modified per HTN protocol #16. documented as of this encounter (statuses as of 05/07/2024) Resolved Problems Problem Noted Date Diagnosed Date [...] as of this encounter (statuses as of 05/07/2024) Immunizations Name Administration Dates Next Due COVID-19 mRNA, LNP-s, No Pre serve, 2-Dose Series (Moderna) 07/26/2020,06/28/2020 COVID-19, mRNA, LNP-s, PF, B ooster, 100mcg/0.5mg (Moderna) 07/21/2021,02/11/2021 Pneumococcal Conjugate Vacci ne, 20-valent ([id number]) 05/02/2024 Seasonal Influenza Vac., MDV , IM, [...] ages 0-17 years) Not on file 05/02/2024 Sex and Gender Information Value Date Recorded Sex Assigned at Male 11/09/2022 2:08 PM EDT Legal Sex Male 4:56 AM EST Gender Identity Male 11/09/2022 2:08 PM EDT Sexual Orientation Straight 11/09/2022 2: 08 PM EDT documented as of this encounter Miscellaneous Notes * Telephone Encounter - Rebecca Grier RN - 05/06/2024 2:00 PM EST TE with pt regarding lab results. * Telephone Encounter - Rebecca Grier RN - 05/06/2024 1:59 PM EST ----- Message from Jose R James MD sent at 05/05/2024 12:12 PM EST ----- Urine test normal documented in this encounter Plan of Treatment Upcoming Encounters Date Type Department Care Team (Late st Contact Info) Description 05/07/2024 10:00 AM EST Office Visit Cardiology, [facility] [address] [facility] [place] [address] Harper Currie CRNP [address] [address] 11/07/2024 9:00 AM EDT Office Visit Nephrology, [facility] [address] [facility] [place] [address] Chitra Chao MD [address] [place] [address] 07/03/2025 9:00 AM EDT Office Visit Ophthalmology, [place] [address] [place] [address] Eliot Guaman DO [address] [place] [address] Scheduled Procedures Name Priority Associated Diagnoses Date/Ti me COLONOSCOPY FLEXIBLE PROXIMA L DIAGNOSTIC Recall Encounter for screening colonoscopy Health Maintenance Due Date Last Done Comments Cologuard 2005 Fecal Occult Blood Test 2005 Sigmoidoscopy 2005 COVID-19 Vaccine ( season) 2023 07/21/2021, 02/11/2021, 07/26/2020, Additional history exists GFR 05/01/2025 05/01/2024, 07/2022, 04/20/2022, Additional history exists Depression Screening 05/02/2025 05/02/2024 Colonoscopy 12/06/2026 12/06/2021, 0908/2021, 12/30/2015, Additional history exists Colorectal Cancer Screening 12/06/2026 Diabetes Screening 05/01/2027 05/01/2024, 1 05/07/2022, 04/20/2022, Additional history exists Albumin/Creatinine Ratio 05/02/2027 025, 12/15/2021, 02/03/2014, Additional history exists Lipid Panel 05/01/2029 05/01/2024, 120 07/2022, 04/20/2022, Additional history exists DTap/Tdap Vaccines [...] this encounter Medical Devices Implanted Type Area Acoustics Teacher Device Identifier Shelf Expiration Date Model / Serial / Lot Mesh 3dmax 3.1x5.3in [facility] Med - [id number] Implanted:Qty: 1 on 12/31/2020 by Brendan Landers MD at OR [facility] Left: Groin CR BARD : DAVOL 04/29/2025 [id number] / / [id number] Plt A2 Mtp Cp Rt T8 - [id number] Implanted:Qty: 1 on 01/23/2023 by Ching Patiño DPM at OR [facility] Right: Foot HUA : TRAUMA [id number] / / Screw Lag Cp 3.6x26mm - [id number] Implanted:Qty: 1 on 01/23/2023 by Ching Patiño DPM at OR [facility] Right: Foot HUA : ORTHOPAEDICS [id number] / / Screw Bn T8 Ft St Lk 2.7x16mm - [id number] Implanted:Qty: 2 on 01/23/2023 by Ching Patiño DPM at OR [facility] Right: Foot HUA : ORTHOPAEDICS [id number] / / Screw Cortical 2.7x18mm - [id number] Implanted:Qty: 1 on 01/23/2023 by Ching Patiño DPM at OR [facility] Right: Foot HUA : ORTHOPAEDICS [id number] / / Screw Locking 2.7x20mm - [id number] Implanted:Qty: 1 on 01/23/2023 by Ching Patiño DPM at OR [facility] Right: Foot HUA : ORTHOPAEDICS [id number] / / documented as of this encounter Advance Directives * Full Code (Latest Code Status on File) Date Activated Date Inactivated Comments 12/31/2020 10:43 AM 12/31/2020 6:05 PM This order reflects the patients wishes and were consensually agreed upon. Care Teams Candy Bar Attendant Relationship Specialty Start Date End Date Derrick Granados DO [address] [place] [address] PCP - General Family Medicine 10/01/20 documented as of this encounter
--- OUTSIDE RECORDS SUMMARY | 2024-07-20 14:34 | External Medical Summary ---
Author Name Unknown Address Unknown Organization K01:[facility] - [address] [place] [address] Laboratory Report Ordering Provider Test Date Status SNEHAL MARTINEZ 05/20/2024 11:58:50 Final Observation Date Value Abnormality Reference (Units ) Status Parathyrin.intact [Mass/volume] in Serum or Plasma 05/20/2024 11:58:50 30 15-65 (pg/mL) Final Performing Location [facility] - [address] [place] [address]
--- OUTSIDE RECORDS SUMMARY | 2024-07-20 14:34 | External Medical Summary | Summary of Care ---
Author Name Unknown Organization [facility] Address [address] [place] [address] Phone [phone] Care Team Providers Care Cobbler Apprentice Name Role Phone Derrick Granados DO Primary Care Provider Reason for Visit * Reason Onset Date Comments Re-Check Bw problem, disc uss Medication Administration 05/02/2024 Flu an d/or Pneumo Inj Encounter Details Date Type Department Care Team (Late st Contact Info) Description 05/02/2024 11:00 AM EST Office Visit Family Practice [facility] [address] [place] [address] Lianne Rivera CRNP [address] [place] [address] HTN, goal below 130/80*; DESEAN (acute kidney injury) (HCC); Acute bronchitis, unspecified organism; Need for prophylactic vaccination and inoculation against influenza; Need for pneumococcal vaccination; Erectile dysfunction, unspecified erectile dysfunction type Allergies No known active allergiesdocumented as of this encounter (statuses as of 05/02/2024) Medications ASPIRIN 81 MG PO TABS Take by mouth 2 times a day. Active cholecalciferol, VIT D3, (VITAMIN D3) 1000 UNITS Tablet Take 1 Tablet by mouth in the morning. 6 Active Ventolin HFA 108 (90 Base) MCG/ACT Inhalation Aerosol Solution Inhale by mouth 2 Puffs every 4 hours as needed for Wheezing. 18 g 2 Active Eye Drops 0.012-0.2 % Ophthalmic Solution [...] before bedtime. 180 Tablet 3 4 Active Losartan Potassium 50 MG Oral Tablet (Cozaar)Indicati ons:HTN, goal below 130/80 Take 1 Tablet by mouth in the morning. 90 Tablet 3 4 Active Rosuvastatin Calcium 40 MG Oral Tablet (Crestor) Take 1 Tablet by mouth at bedtime. 90 Tablet 3 4 Active Terazosin HCl 1 [...] before bedtime. 68 Tablet 11 4 Active traZODone HCl 100 MG Oral Tablet (Desyrel) TAKE 1 TABLET BY MOUTH AT BEDTIME 90 Tablet 1 4 Active Omeprazole 20 MG Oral Capsule Delayed Release (PriLOSEC) TAKE 1 CAPSULE BY MOUTH ONCE DAILY at least 1 hour before first meal 90 Capsule 4 Active Escitalopram Oxalate 10 MG Oral Tablet (Lexapro)Indicat ions:Anxiety state Take 1 Tablet by mouth in the morning. 30 Tablet 2 5 Active Tadalafil 5 MG Oral Tablet (Cialis)Indicati ons:Erectile dysfunction, unspecified erectile dysfunction type Take 1 Tablet by mouth in the morning. prior to intercourse, no more than 1 dose in 24 hours. 30 Tablet 5 Active Azithromycin 250 MG Oral Tablet (Zithromax) Take 2 tabs by mouth on the first day, then 1 tab daily on days two through five 6 Tablet 5 05/07/19 25 Active Ventolin HFA 108 (90 Base) MCG/ACT Inhalation Aerosol SolutionIndicati ons:Viral URI with cough Inhale 2 Puffs by mouth every 4 hours as needed for Wheezing. 18 g 3 4 05/02/19 25 Discontinu ed(Medicat ion List Clean Up) documented as of this encounter (statuses as of 05/02/2024) Active Problems Problem Noted Date Diagnosed Date Mood disorder 01/09/2023 YISEL (generalized anxiety disorder) 11/09/2022 Lumbar degenerative disc disease 11/09/2022 Gastroesophageal reflux disease with esophagitis 01/03/2019 Dyslipidemia 03/15/2009 Overview (03/15/2009): Per Lipid Taxonomy. HTN, goal below 130/80 02/18/2009 Overview (02/18/2009): Modified per HTN protocol #16. documented as of this encounter (statuses as of 05/02/2024) Resolved Problems Problem Noted Date Diagnosed Date [...] as of this encounter (statuses as of 05/02/2024) Immunizations Name Administration Dates Next Due COVID-19 mRNA, LNP-s, No Pre serve, 2-Dose Series (Moderna) 07/26/2020,06/28/2020 COVID-19, mRNA, LNP-s, PF, B ooster, 100mcg/0.5mg (Moderna) 07/21/2021,02/11/2021 Pneumococcal Conjugate Vacci ne, 20-valent ([id number]) 05/02/2024 Seasonal Influenza Vac., MDV , IM, [...] 05/02/2024 Does the household have a re gular source of income? (Household - for ages [...] PM EDT documented as of this encounter Last Filed Vital Signs Vital Sign Reading Time Taken Comments Blood Pressure 120/70 05/02/2024 11:00 AM EST Pulse 60 05/02/2024 11:00 AM EST Temperature - - Respiratory Rate - - Oxygen Saturation - - Inhaled Oxygen Concentration - - Weight 75.8 kg (167 lb 1 oz) 05/02/2024 11:00 AM EST Height - - Body Mass Index 24.32 06/05/2023 4:14 PM EST documented in this encounter Patient Instructions * Patient Instructions* Nazia Reis LPN - 05/02/2024 11:03 AM EST ~~PATIENT INSTRUCTIONS FOR PNEUMOCOCCAL VACCINE~~ Possible side effects of pneumococcal vaccine, (pneumonia shot), are usually mild and can include: 1. Soreness or redness at injection site 2. Low grade fever 3. Body aches You may use Tylenol/Acetaminophen as needed for these symptoms. LET YOUR DOCTOR KNOW IMMEDIATELY IF YOU HAVE DIFFICULTY BREATHING OR SWALLOWING, EXPERIENCE ITCHINGOF FEET OR HANDS, HAVE SWELLING OF EYES, FACE OR INSIDE OF NOSE. documented in this encounter Progress Notes * Lianne Rivera CRNP - 05/02/2024 11:11 AM EST Follow up Family Medicine Visit CC: Chief Complaint Patient presents with Re-Check Bw problem, discuss Medication Administration Flu and/or Pneumo Inj History of Present Illness: Ramon Oro is a 64 year old male presenting for follow up of lab. Recent anemia is slightly worse. Denies rectal bleeding. Denies abdominal pain. Denies hematuria. Recent GFR low. His creatine was elevated. He stopped the creatine today. He is not taking nsaids. Hx of bronchitis. Around sister who is sick. Home covid testing negative. Symptoms started 3-4 days. He is getting flu and pna today. He is going covid shot. He would like to talk about doing testotserone testing. He is having initiating and maintaining erection. He has tried viagra in the past but did really like it. He would consider daily cialis. Social History Socioeconomic History Marital status: Spouse name: Not on file Number of children: Not on file Years of education: Not on file Highest education level: Not on file Occupational History Not on file Tobacco Use Smoking status: Never Smokeless tobacco: Never Vaping Use Vaping status: Never Used Substance and Sexual Activity Alcohol use: Yes Comment: glass of wine on occasion Drug use: No Sexual activity: Yes Partners: Female Other Topics Concern Not on file Social History Narrative Not on file Social Needs Financial Resource Strain: Low Risk (05/02/2024) Financial Resource Strain Do you have any trouble paying for your medications, or do you think you might in the future? (Adult - for ages 18 years and over): No Does your family have trouble paying for medicine? (Household - for ages 0-17 years): Not on file Food Insecurity: No Food Insecurity (05/02/2024) Food Insecurity Do you need food for this week? (Adult - for ages 18 years and over): No Are you able to get enough food for your family? (Household - for ages 0-17 years): Not on file Does your family need food this week? (Household - for ages 0-17 years): Not on file Do you always have enough food for your family? (Household - for ages 0-17 years): Not on file Transportation Needs: No Transportation Needs (05/02/2024) Transportation Needs Do you have trouble getting a ride to medical visits or work? (Adult - for ages 18 years and over):Not on file Does your family have a hard time getting a ride to doctors’ visits? (Household - for ages 0-17 years): Not on file Has lack of transportation kept you from medical appointments, meetings, work, or from getting things needed for daily living? Check all that apply. (Adult - for ages 18 years and over): No Do you (or your family) have trouble finding or paying for a ride (transportation)? (Household - for ages 0-17 years): Not on file Social Connections: Socially Integrated (05/02/2024) Social Connections How often do you feel lonely or isolated from those around you? (Adult - for ages 18 years and over): Never Housing Stability: Low Risk (05/02/2024) Housing Stability Do you currently live in a skilled nursing or have no steady place to sleep at night? (Adult - for ages 18 years and over): No Do you think you are at risk of becoming homeless? (Adult - for ages 18 years and over): Not on file Does your family worry about paying for your home or becoming homeless? (Household - for ages 0-17 years): Not on file Are you homeless or worried that you might be in the future? (Adult - for ages 18 years and over): No Are you (or your family) homeless or worried that you might be in the future? (Household - for ages0-17 years): Not on file PMH: Past Medical History: Diagnosis Date CKD (chronic kidney disease), stage II 12/09/2020 EGFR 69.5 YISEL (generalized anxiety disorder) 11/09/2022 Gastroesophageal reflux disease with esophagitis 01/03/2019 Hernia of other specified sites of abdominal cavity without mention of obstruction or gangrene Lumbar degenerative disc disease 11/09/2022 Mood disorder (HCC) 01/03/2019 Past Surgical History: Procedure Laterality Date CARPAL TUNNEL SURGERY Right 05/26/2020 NEUROPLASTY MEDIAN NERVE AT CARPAL TUNNEL performed by Tha Gomez MD at [facility] COLONOSCOPY, DIAGNOSTIC (RECTUM) 04/10/2011 normal COLONOSCOPY, DIAGNOSTIC (RECTUM) 12/30/2015 normal bx, diverticulosis/COLONOSCOPY FLEXIBLE PROXIMAL DIAGNOSTIC performed by Carrington Ash MD at [facility] COLONOSCOPY, DIAGNOSTIC (RECTUM) 12/06/2021 fair prep, repeat 5 yrs / COLONOSCOPY FLEXIBLE PROXIMAL DIAGNOSTIC performed by Nader Morataya MD at ENDOSCOPY [facility] FUSION OF GREAT TOE JOINT Right 01/23/2023 METATARSOPHALANGEAL ARTHRODESIS GREAT TOE performed by Ching Patiño DPM at [facility] INCISION OF TENDON SHEATH Right 05/26/2020 INCISION EXTENSOR TENDON SHEATH WRIST performed by Tha Gomez MD at [facility] LAP;REPAIR RECURRENT HERNIA Left 12/27/2020 LAPAROSCOPY; REPAIR INITIAL INGUINAL HERNIA Left 12/31/2020 LAPAROSCOPIC REPAIR INGUINAL HERNIA INITIAL performed by Brendan Landers MD at [facility] MISCELLANEOUS ORDER ([facility] ONLY) tubes in ears REMOVAL OF APPENDIX REMOVAL OF TONSILS, UNDER AGE 12 REMOVE WRIST/FOREARM LESION,FLEXORS Right 05/26/2020 RADICAL EXCISION BURSA SYNOVIA WRIST OR FOREARM performed by Tha Gomez MD at OR [facility] REPAIR INITIAL INGUINAL HERNIA REDUCIBLE AGE 5 OR MORE REPAIR OF HAMMERTOE, ONE TOE Right 01/23/2023 CORRECTION HAMMERTOE performed by Ching Patiño DPM at OR [facility] REPAIR OF HYDROCELE TENDON SHEATH INCISION, FINGER Right 05/26/2020 TRIGGER FINGER RELEASE performed by Tha Gomez MD at OR [facility] Current Outpatient Medications Medication Sig Dispense Refill Escitalopram Oxalate 10 MG Oral Tablet (Lexapro) Take 1 Tablet by mouth in the morning. 30 Tablet 2 Omeprazole 20 MG Oral Capsule Delayed Release (PriLOSEC) TAKE 1 CAPSULE BY MOUTH ONCE DAILY at least 1 hour before first meal 90 Capsule 0 traZODone HCl 100 MG Oral Tablet (Desyrel) TAKE 1 TABLET BY MOUTH AT BEDTIME 90 Tablet 1 Carvedilol 6.25 MG Oral Tablet (Coreg) Take 1 Tablet by mouth in the morning and 1 Tablet before bedtime. 68 Tablet 11 busPIRone HCl 10 MG Oral Tablet (Buspar) Take 1 Tablet by mouth in the morning and 1 Tablet before bedtime. 180 Tablet 3 Losartan Potassium 50 MG Oral Tablet (Cozaar) Take 1 Tablet by mouth in the morning. 90 Tablet 3 Rosuvastatin Calcium 40 MG Oral Tablet (Crestor) Take 1 Tablet by mouth at bedtime. 90 Tablet 3 Terazosin HCl 1 MG Oral Capsule (Hytrin) Take 1 Capsule by mouth at bedtime. 90 Capsule 3 valACYclovir HCl 500 MG Oral Tablet (Valtrex) Take 1 Tablet by mouth in the morning and 1 Tablet before bedtime. 180 Tablet 3 guaiFENesin ER 600 MG Oral Tablet Extended Release 12 Hour (Mucinex) Take 1 Tablet by mouth 2 timesa day as needed for Congestion. Take with plenty of water. Do not cut, crush or chew 40 Tablet 2 Iron 142 (45 Fe) MG Oral Tablet Extended Release Take by mouth 2 times a day. Magnesium 250 MG Oral Tablet Take 1 Tablet by mouth in the morning and 1 Tablet before bedtime. Potassium 99 MG Oral Tablet Take 1 Tablet by mouth in the morning. Super B-Complex + Vitamin C Oral Tablet Take by mouth 2 times a day. Vitamin C 500 MG Oral Tablet (Ascorbic Acid) Take 1 Tablet by mouth in the morning. Vitamin E 45 MG (100 UNIT) Oral Capsule Take by mouth 2 times a day. Eye Drops 0.012-0.2 % Ophthalmic Solution (Naphazoline-Polyethyl Glycol) Instill 1 Drop into both eyes as needed. Ventolin HFA 108 (90 Base) MCG/ACT Inhalation Aerosol Solution Inhale by mouth 2 Puffs every 4 hours as needed for Wheezing. 18 g 0 cholecalciferol, VIT D3, (VITAMIN D3) 1000 UNITS Tablet Take 1 Tablet by mouth in the morning. ASPIRIN 81 MG PO TABS Take by mouth 2 times a day. No current facility-administered medications for this visit. Review of patient's allergies indicates: No Known Allergies Most Recent Immunizations Administered Date(s) Administered COVID-19 mRNA, LNP-s, No Preserve, 2-Dose Series (Moderna) 07/26/2020 COVID-19, mRNA, LNP-s, PF, Booster, 100mcg/0.5mg (Moderna) 07/21/2021 Seasonal Influenza Vac., MDV, IM, 0.5 mL (Fluzone) 01/13/2014 Seasonal Influenza, PF, 6 M & above, IM , (FluLaval or Fluzone) 02/16/2023 Seasonal Influenza, Quadrivalent, No Preserve, IM 12/15/2015 TDAP (age 10 and older)(Boostrix) 12/09/2020 TDAP, Age 7 and older, IM (Adacel) 10/27/2010 Zoster Vaccine Recombinant (Shingrix) 03/15/2020 Review of Systems: Review of Systems Constitutional: Negative for fatigue. Respiratory: Positive for cough, shortness of breath and wheezing. Cardiovascular: Negative for chest pain, palpitations and leg swelling. Gastrointestinal: Negative for abdominal pain. Neurological: Negative for dizziness and syncope. Psychiatric/Behavioral: Positive for dysphoric mood. Negative for sleep disturbance. The patient isnervous/anxious. Physical Exam: BP 120/70 | Pulse 60 | Wt 167 lb 1 oz (75.8 kg) | BMI 24.32 kg/m² | BSA 1.93 m² Physical Exam Vitals and nursing note reviewed. HENT: Head: Normocephalic. Right Ear: Tympanic membrane normal. Left Ear: Tympanic membrane normal. Eyes: Pupils: Pupils are equal, round, and reactive to light. Cardiovascular: Rate and Rhythm: Normal rate and regular rhythm. Pulmonary: Effort: Pulmonary effort is normal. Breath sounds: Examination of the right-upper field reveals rhonchi. Examination of the right-middle field reveals rhonchi. Decreased breath sounds and rhonchi present. Abdominal: General: Bowel sounds are normal. Palpations: Abdomen is soft. There is no mass. Tenderness: There is no abdominal tenderness. Musculoskeletal: General: Normal range of motion. Cervical back: Normal range of motion. Skin: General: Skin is warm and dry. Neurological: General: No focal deficit present. Mental Status: He is alert and oriented to person, place, and time. Psychiatric: Mood and Affect: Mood normal. Behavior: Behavior normal. Thought Content: Thought content normal. Judgment: Judgment normal. Assessment and Plan: 1. HTN, goal below 130/80 (Primary) stable 2. DESEAN (acute kidney injury) (HCC) Stop all supplements Recheck in 2-4 weeks - BASIC METABOLIC PANEL; Future 3. Acute bronchitis, unspecified organism ADD AZITHROMYCIN 4. Need for prophylactic vaccination and inoculation against influenza - INFLUENZA VAC, TRIVALENT, (IIV3), PF, 0.5 ML (FLUZONE) 5. Need for pneumococcal vaccination - PNEUMOCOCCAL VACC, PCV20, IM ([id number]) 6. Erectile dysfunction, unspecified erectile dysfunction type Did not like viagra Ok to trying cialis daily - TESTOSTERONE: TOTAL, FREE AND BIOAVAILABLE; Future - Tadalafil 5 MG Oral Tablet (Cialis); Take 1 Tablet by mouth in the morning. prior to intercourse,no more than 1 dose in 24 hours. Dispense: 30 Tablet; Refill: 0 I have advised the patient to call our office incase of any worsening or new symptoms. I spent a total of 20-29 minutes (exact time 25 mins) on the date of service in preparation, delivery, and documentation of the care provided to Ramno Oro excluding any time spent in the performance of separately billed services. ARACELI Simms, JOSEPH [facility] * Nazia Reis LPN - 05/02/2024 11:02 AM EST PRE - ADMINISTRATION DOCUMENTATION Are you experiencing any cold symptoms or fever? No Have you had Guillain-[place] Syndrome (an illness that causes paralysis) within the last 6 weeks? No Have you had the flu shot in the past? YES Have you ever had a reaction to the flu shot? No Nazia Reis LPN, 05/02/2024 11:02 AM Immunization Administration Documentation Time Out Procedure Performed: Yes Patient Identified (Ask Name/Date of ): Yes Does the patient have a fever greater than 101 degrees today? No Patient allergic to latex? No VFC Stock: No Injection(s) verified: Yes, Injection Name: Fluzone Verified Side and Site: Yes Verified Shot(s) with Parent(s)/Patient: Yes Immunization Administration Documentation Time Out Procedure Performed: Yes Patient Identified (Ask Name/Date of ): Yes Does the patient have a fever greater than 101 degrees today? No Patient allergic to latex? No VFC Stock: No Injection(s) verified: Yes, Injection Name: Prevnar 20 Verified Side and Site: Yes Verified Shot(s) with Parent(s)/Patient: Yes documented in this encounter Plan of Treatment Upcoming Encounters Date Type Department Care Team (Late st Contact Info) Description 05/05/2024 8:30 AM EST Office Visit Ophthalmology, [place] [address] [place] [address] Eliot Guaman DO [address] [place] [address] 05/07/2024 10:00 AM EST Office Visit Cardiology, [facility] [address] [facility] [place] [address] Harper Currie CRNP [address] [place] [address] 11/07/2024 9:00 AM EDT Office Visit Nephrology, [facility] [address] [facility] [place] [address] Chitra Chao [facility] [address] [facility] [id number] Scheduled Orders Name Type Priority Associated Diagnoses Orde r Schedule BASIC METABOLIC PANEL Lab Routine DESEAN (acute kidney injury) (HCC) Expected: 05/16/2024 (Approximate), Expires: 05/02/2025 TESTOSTERONE: TOTAL, FREE AND BIOAVAILABLE Lab Routine Erectile dysfunction, unspecified erectile dysfunction type Expected: 05/02/2024 (Approximate), Expires: 05/02/2025 Scheduled Procedures Name Priority Associated Diagnoses Date/Ti me COLONOSCOPY FLEXIBLE PROXIMA L DIAGNOSTIC Recall Encounter for screening colonoscopy Health Maintenance Due Date Last Done Comments Cologuard 2005 Fecal Occult Blood Test 2005 Sigmoidoscopy 2005 COVID-19 Vaccine ( season) 2023 07/21/2021, 02/11/2021, 07/26/2020, Additional history exists Albumin/Creatinine Ratio 12/15/2024 022, 02/03/2014, 05/26/2011 GFR 05/01/2025 05/01/2024, 120 07/2022, 04/20/2022, Additional history exists Depression Screening 05/02/2025 05/02/2024 Colonoscopy 12/06/2026 12/06/2021, 090 08/2021, 12/30/2015, Additional history exists Colorectal Cancer Screening 12/06/2026 Diabetes Screening 05/01/2027 05/01/2024, 1 05/07/2022, 04/20/2022, Additional history exists Lipid Panel 05/01/2029 05/01/2024, 12/0 07/2022, 04/20/2022, Additional history exists DTap/Tdap Vaccines [...] this encounter Medical Devices Implanted Type Area Doctor Of Naturopathic Medicine Device Identifier Shelf Expiration Date Model / Serial / Lot Mesh 3dmax 3.1x5.3in [facility] - [id number] Implanted:Qty: 1 on 12/31/2020 by Brendan Landers MD at [facility] Left: Groin CR BARD : DAVOL 04/29/2025 [id number] / / [id number] Plt A2 Mtp Cp Rt T8 - [id number] Implanted:Qty: 1 on 01/23/2023 by Ching Patiño DPM at OR [facility] Right: Foot HUA : [id number] / / Screw Lag Cp 3.6x26mm - [id number] Implanted:Qty: 1 on 01/23/2023 by Ching Patiño DPM at OR [facility] Right: Foot HUA : OR[employer] [id number] / / Screw Bn T8 Ft St Lk 2.7x16mm - [id number] Implanted:Qty: 2 on 01/23/2023 by Ching Patiño DPM at OR [facility] Right: Foot HUA : ORTHOPA[employer]ICS [id number] / / Screw Cortical 2.7x18mm - [id number] Implanted:Qty: 1 on 01/23/2023 by Ching Patiño DPM at OR [facility] Right: Foot HUA : ORTHOPA[employer]ICS [id number] / / Screw Locking 2.7x20mm - [id number] Implanted:Qty: 1 on 01/23/2023 by Ching Patiño DPM at [facility] Right: Foot HUA : ORTHOPA[employer]ICS [id number] / / documented as of this encounter Visit Diagnoses Diagnosis HTN, goal below 130/80- Primary Unspecified essential hypertension DESEAN (acute kidney injury) (HCC) Acute kidney failure, unspecified Acute bronchitis, unspecified organism Need for prophylactic vaccination and inoculation against influenza Need for pneumococcal vaccination Need for prophylactic vaccination against streptococcus pneumoniae (pneumococcus) Erectile dysfunction, unspecified erectile dysfunction type documented in this encounter Advance Directives * Full Code (Latest Code Status on File) Date Activated Date Inactivated Comments 12/31/2020 10:43 AM 12/31/2020 6:05 PM This order reflects the patients wishes and were consensually agreed upon. Care Teams Cobbler Apprentice Relationship Specialty Start Date End Date Derrick Granados DO [address] [place] [id number] PCP - General Family Medicine 10/01/20 documented as of this encounter"
--- OUTSIDE RECORDS SUMMARY | 2024-07-20 14:34 | External Medical Summary ---
Author Name Unknown Address Unknown Organization [id number]:LABORATORY [facility] - [address] [place] [address] Laboratory Report Ordering Provider Test Date Status SNEHAL MARTINEZ 05/20/2024 11:58:50 Final Deficient: <20 ng/mL
Ins ufficient: 20-29 ng/mL
Recommended/Optimum:30-50 ng/mL

Vitamin D intoxication is rare. If suspicious of Vitamin D toxicity, evaluation of serum Calcium and PTH is recommended. Observation Date Value Abnormality Reference (Units ) Status 25-OH Vitamin D total 05/20/2024 11:58:50 56 >19 (ng/mL) Final Performing Location [facility] - [address] [place] [address]
--- OUTSIDE RECORDS SUMMARY | 2024-07-20 14:34 | External Medical Summary ---
Author Name Unknown Address Unknown Organization [id number]:LABORATORY [facility] [address] - [address] [place] [address] Laboratory Report Ordering Provider Test Date Status LYDIA HARLEY 05/01/2024 10:40:20 Final Observation Date Value Abnormality Reference (Units ) Status BUN 05/01/2024 10:40:20 28 Above high normal 6-20 (mg/dL) Final Creatinine 05/01/2024 10:40:20 1.5 Above high normal 0.6-1.2 (mg/dL) Final Glomerular filtration rate/1.73 sq M.predicted [Volume Rate/Area] in Serum, Plasma or Blood by Creatinine-based formula (CKD-EPI) 05/01/2024 10:40:20 52 Below low normal >=60 (mL/min) Final eGFR is calculated based on the CKD-EPI 2020 equation. Sodium 05/01/2024 10:40:20 136 135-146 (m mol/L) Final Potassium 05/01/2024 10:40:20 4.5 3.5-5.1 (m mol/L) Final Cl 05/01/2024 10:40:20 100 98-107 (mm ol/L) Final CO2 05/01/2024 10:40:20 27 22-32 (mmo l/L) Final Anion gap 05/01/2024 10:40:20 9 7-15 (mmol /L) Final Glucose 05/01/2024 10:40:20 89 70-120 (mg /dL) Final Albumin 05/01/2024 10:40:20 4.4 3.8-5.0 (g /dL) Final AST (Aspartate aminotransferase) 05/01/2024 10:40:20 26 10-50 (U/L) Final Alk Phos 05/01/2024 10:40:20 49 35-130 (U/ L) Final Bilirubin, Total 05/01/2024 10:40:20 0.7 <=1 .2 (mg/dL) Final Calcium 05/01/2024 10:40:20 9.0 8.4-10.2 ( mg/dL) Final Protein 05/01/2024 10:40:20 6.3 6.0-8.3 (g /dL) Final ALT (Alanine aminotransferase) 05/01/2024 10:40:20 22 10-50 (U/L) Final Performing [facility] - [address] [facility] [address]
--- OUTSIDE RECORDS SUMMARY | 2024-07-20 14:34 | External Medical Summary | Summary of Care ---
Author Name Unknown Organization [facility] Address [address] [place] [address] Phone [phone] Care Team Providers Care Gas Treater Name Role Phone Elaine Granados DO Primary Care Provider Reason for Visit * Reason Comments eRx-Medication Refill Encounter Details Date Type Department Care Team (Late st Contact Info) Description 05/11/2024 Refill Family Practice [facility] [address] [place] [address] Elaine Granados DO [address] [facility] [place] [address] Allergies No known active allergiesdocumented as of this encounter (statuses as of 05/12/2024) Medications ASPIRIN 81 MG PO TABS Take [...] AT BEDTIME 90 Tablet 3 5 Active traZODone HCl 100 MG Oral Tablet (Desyrel) TAKE 1 TABLET BY MOUTH AT BEDTIME 90 Tablet 1 4 025 Discontinued documented as of this encounter (statuses as of 05/12/2024) Active Problems Problem Noted Date Diagnosed Date Mood disorder 01/09/2023 YISEL (generalized anxiety disorder) 11/09/2022 Lumbar degenerative disc disease 11/09/2022 Gastroesophageal reflux disease with esophagitis 01/03/2019 Dyslipidemia 03/15/2009 Overview (03/15/2009): Per Lipid Taxonomy. HTN, goal below 130/80 02/18/2009 Overview (02/18/2009): Modified per HTN protocol #16. documented as of this encounter (statuses as of 05/12/2024) Resolved Problems Problem Noted Date Diagnosed Date [...] as of this encounter (statuses as of 05/12/2024) Immunizations Name Administration Dates Next Due COVID-19 mRNA, LNP-s, No Pre serve, 2-Dose Series (Moderna) 07/26/2020,06/28/2020 COVID-19, mRNA, LNP-s, PF, B ooster, 100mcg/0.5mg (Moderna) 07/21/2021,02/11/2021 Pneumococcal Conjugate Vacci ne, 20-valent ([id number]) 05/02/2024 Seasonal Influenza Vac., MDV , IM, [...] encounter Miscellaneous Notes * [facility] 11:59 AM ESTSigned Prescriptions: Disp Refills traZODone HCl 100 MG Oral Tablet (Desyrel) 90 Tab*3 Sig: TAKE 1 TABLET BY MOUTH AT BEDTIMEAuthorizing Provider: ELAINE GRANADOS User: BLAKE FLAHERTY documented in this encounter Plan of Treatment Upcoming Encounters Date Type Department Care Team (Late st Contact Info) Description 05/15/2024 8:30 AM EST Imaging Vascular Lab, [address] [facility] [place] [address] 11/07/2024 9:00 AM EDT Office Visit Nephrology, [facility] [address] [place] [address] Chitra Chao MD [address] [place] [address] 05/07/2025 8:00 AM EST Office Visit Cardiology, [facility] [address] [facility] [place] [address] Janet Carr PA-C [address] [place] [id number] 07/03/2025 9:00 AM EDT Office Visit Ophthalmology, [facility] [address] [place] [address] Eliot Guaman DO [address] [place] [address] Scheduled Procedures Name Priority Associated Diagnoses Date/Ti me COLONOSCOPY FLEXIBLE PROXIMA L DIAGNOSTIC Recall Encounter for screening colonoscopy Health Maintenance Due Date Last Done Comments Cologuard 2005 Fecal Occult Blood Test 2005 Sigmoidoscopy 2005 COVID-19 Vaccine ( season) 2023 07/21/2021, 02/11/2021, 07/26/2020, Additional history exists GFR 05/01/2025 05/01/2024, 07/2022, 04/20/2022, Additional history exists Depression Screening 05/02/2025 05/02/2024 Colonoscopy 12/06/2026 12/06/2021, 08/2021, 12/30/2015, Additional history [...] this encounter Medical Devices Implanted Type Area Supervisor Paper Coating Device Identifier Shelf Expiration Date Model / Serial / Lot Mesh 3dmax 3.1x5.3in Lft Med - [id number] Implanted:Qty: 1 on 12/31/2020 by Brendan Landers MD at OR [facility] Left: Groin CR BARD : DAVOL 04/29/2025 [id number] / / [id number] Plt A2 Mtp Cp Rt T8 - [id number] Implanted:Qty: 1 on 01/23/2023 by Ching Patiño DPM at OR [facility] Right: Foot HUA : [id number] / / Screw Lag Cp 3.6x26mm - [id number] Implanted:Qty: 1 on 01/23/2023 by Ching Patiño DPM at OR [facility] Right: Foot HUA : ORTHOPAEDICS [id number] / / Screw Bn T8 Ft St Lk 2.7x16mm - [id number] Implanted:Qty: 2 on 01/23/2023 by Ching Patiño DPM at OR [facility] Right: Foot HUA : ORTHOPAEDICS [id number] / / Screw Cortical 2.7x18mm - [id number] Implanted:Qty: 1 on 01/23/2023 by Ching Patiño DPM at OR [facility] Right: Foot HUA : ORTH[employer] [id number] / / Screw Locking 2.7x20mm - [id number] Implanted:Qty: 1 on 01/23/2023 by Ching Patiño DPM at OR [facility] Right: Foot HUA : ORTHOPAEDICS [id number] / / documented as of this encounter Advance Directives * Full Code (Latest Code Status on File) Date Activated Date Inactivated Comments 12/31/2020 10:43 AM 12/31/2020 6:05 PM This order reflects the patients wishes and were consensually agreed upon. Care Teams Gas Treater Relationship Specialty Start Date End Date Elaine Granados DO [address] [place] [address] PCP - General Family Medicine 10/01/20 documented as of this encounter
--- OUTSIDE RECORDS SUMMARY | 2024-07-20 14:34 | External Medical Summary ---
Author Name Unknown Address Unknown Organization [id number][facility] [address] [place] [address] Laboratory Report Ordering Provider Test Date Status LYDIA HARLEY 05/01/2024 10:40:20 Final Observation Date Value Abnormality Reference (Units ) Status WBC, Total 05/01/2024 10:40:20 6.20 4.00-10.8 0 (K/uL) Final RBC 05/01/2024 10:40:20 3.96 4.50-5.25 (M/uL) Final Hemoglobin 05/01/2024 10:40:20 13.3 Below low normal 14 .0-16.8 (g/dL) Final HCT 05/01/2024 10:40:20 39.2 Below low normal 40. 0-48.4 (%) Final MCV 05/01/2024 10:40:20 99.0 82.0-99.5 (fL) Final MCH 05/01/2024 10:40:20 33.6 27.0-34.0 (pg) Final MCHC 05/01/2024 10:40:20 33.9 32.0-36.0 (g/dL) Final RDW 05/01/2024 10:40:20 12.2 11.5-15.5 (%) Final Platelets 05/01/2024 10:40:20 120 Below low normal 140 -400 (K/uL) Final MPV 05/01/2024 10:40:20 9.6 6.6-11.1 ( fL) Final Performing Location LAB[facility]ATORY [facility] [address] [place] [address]
--- OUTSIDE RECORDS SUMMARY | 2024-07-20 14:34 | External Medical Summary ---
Author Name Unknown Address Unknown Organization [id number][place] [place] [address] [place] [address] Laboratory Report Ordering Provider Test Date Status LOBITO SOSA 05/20/2024 11:58:50 Final Observation Date Value Abnormality Reference (Units ) Status Albumin 05/20/2024 11:58:50 4.7 3.8-5.0 (g/dL) Final Sex Hormone Binding Globulin 05/20/2024 11:58:50 82 12-91 (nmol/L) Final Testosterone [Mass/volume] in Serum or Plasma 05/20/2024 11:58:50 657.0 193.0-740.0 (ng/dL) Final Free Testosterone, calculated 05/20/2024 11:58:50 72.1 35.0-130.0 (pg/mL) Final Bioavailable Testosterone, calculated 05/20/2024 11:58:50 184.0 79.0-335.0 (ng/dL) Final Performing Location [place] [facility] [place] [address] [place] [id number]
--- OUTSIDE RECORDS SUMMARY | 2024-07-20 14:34 | External Medical Summary | Summary of Care ---
Author Name Unknown Organization [facility] Address [address] [place] [address] Phone [phone] Care Team Providers Care [employer] Farm Worker Name Role Phone Darwin Derrick Hollissejal Primary Care Provider Reason for Visit * Reason Comments Follow Up Encounter Details Date Type Department Care Team (Late st Contact Info) Description 05/07/2024 10:00 AM EST Office Visit Cardiology, [facility] [address] [facility] [place] [id number] Harper Currie CRNP [address] [place] [address] HTN, goal below 130/80*; Hyperlipemia, mixed; Asymptomatic bilateral carotid artery stenosis Allergies No known active allergiesdocumented as of [...] needed for Wheezing. 18 g 5 Active Azithromycin 250 MG Oral Tablet (Zithromax) Take 2 tabs by mouth on the first day, then 1 tab daily on days two through five 6 Tablet 5 025 Discontinued documented as of this [...] (Moderna) 07/21/2021,02/11/2021 Pneumococcal Conjugate Vacci ne, 20-valent ([id number]) 05/02/2024 Seasonal Influenza Vac., MDV , IM, [...] Sign Reading Time Taken Comments Blood Pressure 110/64 05/07/2024 10:16 AM EST Pulse 72 05/07/2024 10:16 AM EST Temperature - - Respiratory Rate 16 05/07/2024 10:16 AM EST Oxygen Saturation - - Inhaled Oxygen Concentration - - Weight 75.8 kg (167 lb) 05/07/2024 10:16 AM EST Height - - Body Mass Index 24.32 06/05/2023 4:14 PM EST documented in this encounter Progress Notes * Harper Currie CRNP - 05/07/2024 10:16 AM EST Subjective Ramon Oro is a 64 year old male. Chief Complaint Patient presents with Follow Up Cardiac Problems: HTN LILIANE, Bilaterally HLD CKD III HPI: 64 year old male presents for routine cardiology follow up. Last seen in the clinic 1 year ago. Feeling well since their last visit with no acute concerns today. Denies chest pain, SOB, palpitations, dizziness, syncope, edema, orthopnea and PND. No change in activity tolerance. Reports compliance with medications without any untoward side effects, or difficulty with affordability. PMH: Patient Active Problem List Diagnosis HTN, goal below 130/80 Dyslipidemia Gastroesophageal reflux disease with esophagitis YISEL (generalized anxiety disorder) Lumbar degenerative disc disease Mood disorder (HCC) Current Outpatient Medications Medication Sig Dispense Refill ASPIRIN 81 MG PO TABS Take by mouth 2 times a day. cholecalciferol, VIT D3, (VITAMIN D3) 1000 UNITS Tablet Take 1 Tablet by mouth in the morning. Eye Drops 0.012-0.2 % Ophthalmic Solution (Naphazoline-Polyethyl Glycol) Instill 1 Drop into both eyes as needed. Vitamin C 500 MG Oral Tablet (Ascorbic Acid) Take 1 Tablet by mouth in the morning. Potassium 99 MG Oral Tablet Take 1 Tablet by mouth in the morning. Iron 142 (45 Fe) MG Oral Tablet Extended Release Take by mouth 2 times a day. Magnesium 250 MG Oral Tablet Take 1 Tablet by mouth in the morning and 1 Tablet before bedtime. Super B-Complex + Vitamin C Oral Tablet Take by mouth 2 times a day. Vitamin E 45 MG (100 UNIT) Oral Capsule Take by mouth 2 times a day. guaiFENesin ER 600 MG Oral Tablet Extended Release 12 Hour (Mucinex) Take 1 Tablet by mouth 2 timesa day as needed for Congestion. Take with plenty of water. Do not cut, crush or chew 40 Tablet 2 busPIRone HCl 10 MG Oral Tablet (Buspar) [...] 1 Tablet before bedtime. 180 Tablet 3 Carvedilol 6.25 MG Oral Tablet (Coreg) Take 1 Tablet by mouth in the morning and 1 Tablet before bedtime. 68 Tablet 11 traZODone HCl 100 MG Oral Tablet (Desyrel) TAKE 1 TABLET BY MOUTH AT BEDTIME 90 Tablet 1 Omeprazole 20 MG Oral Capsule Delayed Release (PriLOSEC) TAKE 1 CAPSULE BY MOUTH ONCE DAILY at least 1 hour before first meal 90 Capsule 0 Escitalopram Oxalate 10 MG Oral Tablet (Lexapro) Take 1 Tablet by mouth in the morning. 30 Tablet 2 Tadalafil 5 MG Oral Tablet (Cialis) Take 1 Tablet by mouth in the morning. prior to intercourse, nomore than 1 dose in 24 hours. 30 Tablet 0 Ventolin HFA 108 (90 Base) MCG/ACT Inhalation Aerosol Solution Inhale 2 Puffs by mouth every 4 hours as needed for Wheezing. 18 g 0 No current facility-administered medications for this visit. Past Medical History: Diagnosis Date CKD (chronic [...] TUNNEL performed by Tha Gomez MD at OR [facility] COLONOSCOPY, DIAGNOSTIC (RECTUM) 04/10/2011 normal COLONOSCOPY, DIAGNOSTIC (RECTUM) 12/30/2015 normal bx, diverticulosis/COLONOSCOPY FLEXIBLE PROXIMAL DIAGNOSTIC performed by Carrington Ash MD at ENDOSCOPY [facility] COLONOSCOPY, DIAGNOSTIC (RECTUM) 12/06/2021 fair prep, repeat 5 yrs / COLONOSCOPY FLEXIBLE PROXIMAL DIAGNOSTIC performed by Nader Morataya MD at ENDOSCOPY [facility] FUSION OF GREAT TOE JOINT Right 01/23/2023 METATARSOPHALANGEAL ARTHRODESIS GREAT TOE performed by Ching Patiño DPM at OR [facility] INCISION OF TENDON SHEATH Right 05/26/2020 INCISION EXTENSOR TENDON SHEATH WRIST performed by Tha Gomez MD at OR [facility] LAP;REPAIR RECURRENT HERNIA Left 12/27/2020 LAPAROSCOPY; REPAIR INITIAL INGUINAL HERNIA Left 12/31/2020 LAPAROSCOPIC REPAIR INGUINAL HERNIA INITIAL performed by Brendan Landers MD at OR [facility] MISCELLANEOUS ORDER ([facility] ONLY) tubes in ears REMOVAL OF APPENDIX REMOVAL OF TONSILS, UNDER AGE 12 REMOVE WRIST/FOREARM LESION,FLEXORS Right 05/26/2020 RADICAL EXCISION BURSA SYNOVIA WRIST OR FOREARM performed by Tha Gomez MD at OR [facility] REPAIR INITIAL INGUINAL HERNIA REDUCIBLE AGE 5 OR MORE REPAIR OF HAMMERTOE, ONE TOE Right 01/23/2023 CORRECTION HAMMERTOE performed by Ching Patiño DPM at OR [facility] REPAIR OF HYDROCELE TENDON SHEATH INCISION, FINGER Right 05/26/2020 TRIGGER FINGER RELEASE performed by Tha Gomez MD at OR [facility] Review of patient's allergies indicates: No Known Allergies Family History Problem Relation Name Age of Onset Cancer Grandmother (Paternal) colon Cancer Grandfather (Paternal) colon, lung Hypertension Father No Past Hx Mother Family Status Relation Status PGMA (Not Specified) PGFA (Not Specified) Fa (Not Specified) Mo (Not Specified) Social History Socioeconomic History Marital status: Spouse [...] Insecurity: No Food Insecurity (05/02/2024) Food Insecurity Worried About Running Out of Food in the Last Year: Never true Ran Out of Food in the Last Year: Never true Do you need food for this week? (Adult - for ages 18 years and over): No Transportation Needs: No Transportation Needs (05/02/2024) Transportation [...] Stability Do you currently live in a longterm or have no steady place to sleep [...] - for ages0-17 years): Not on file Review of Systems Constitutional: Negative for activity change, fatigue and unexpected weight change. Eyes: Negative for visual disturbance. Respiratory: Negative for shortness of breath and wheezing. Cardiovascular: Negative for chest pain, palpitations and leg swelling. Gastrointestinal: Negative for blood in stool, constipation, diarrhea, nausea and vomiting. Genitourinary: Negative for hematuria. Musculoskeletal: Negative for arthralgias and gait problem. Skin: Negative for wound. Neurological: Negative for dizziness and syncope. Objective BP 110/64 | Pulse 72 | Resp 16 | Wt 75.8 kg (167 lb) | BMI 24.32 kg/m² | BSA 1.93 m² Physical Exam Vitals and nursing note reviewed. Constitutional: General: He is awake. He is not in acute distress. Appearance: Normal appearance. He is well-developed. He is not ill-appearing. HENT: Head: Normocephalic and atraumatic. Eyes: General: No scleral icterus. Extraocular Movements: Extraocular movements intact. Conjunctiva/sclera: Conjunctivae normal. Pupils: Pupils are equal, round, and reactive to light. Neck: Thyroid: No thyromegaly. Vascular: No carotid bruit or JVD. Cardiovascular: Rate and Rhythm: Normal rate. Pulses: Normal pulses. Carotid pulses are 2+ on the right side and 2+ on the left side. Radial pulses are 2+ on the right side and 2+ on the left side. Posterior tibial pulses are 2+ on the right side and 2+ on the left side. Heart sounds: Normal heart sounds, S1 normal and S2 normal. No murmur heard. Pulmonary: Effort: Pulmonary effort is normal. No respiratory distress. Breath sounds: Normal breath sounds. No wheezing, rhonchi or rales. Abdominal: General: Bowel sounds are normal. There is no distension. Palpations: Abdomen is soft. There is no mass. Tenderness: There is no abdominal tenderness. Musculoskeletal: General: No swelling. Cervical back: Neck supple. Right lower leg: No edema. Left lower leg: No edema. Skin: General: Skin is warm and dry. Capillary Refill: Capillary refill takes less than 2 seconds. Findings: No rash or wound. Neurological: General: No focal deficit present. Mental Status: He is alert and oriented to person, place, and time. Psychiatric: Attention and Perception: Attention and perception normal. Behavior: Behavior is cooperative. Judgment: Judgment normal. Results Labs & Imaging Reviewed Below: ECG Today SB 58 bpm QTc 418 ms 04/18/22 NSR 86 bpm QTc 433 ms 10/07/20 NSR 66 bpm QTc 419 ms 09/04/18 NSR 93 bpm QTc 455 ms Echocardiograms 11/04/20 The primary indication after review was deemed appropriate and the examination was performed. Normal LV chamber size with mild concentric LVH, sigmoid appearing septum. Normal LV systolic function without regional wall motion abnormality. Calculated LV ejection Fraction = 55% (three dimensional volumes). Grade 1 diastolic dysfunction. Trileaflet aortic valve with mild sclerosis but no stenosis. Mild aortic regurgitation. Mild mitral regurgitation. Mild tricuspid regurgitation. Mild left atrial enlargement. Carotid Duplex 10/19/20 Impression: Right carotid artery duplex examination indicates evidence of less than 50% stenosis of the internal carotid artery. Left carotid artery duplex examination indicates evidence of less than 50% stenosis of the internalcarotid artery. Labs Latest Reference Range & Units 03/06/23 07:12 05/01/24 10:40 CK 39 - 308 U/L 148 Triglycerides <=174 mg/dL 138 48 Cholesterol <200 mg/dL 197 138 Non-HDL Cholesterol <=159 mg/dL 103 74 HDL Cholesterol >39 mg/dL 94 64 LDL Cholesterol <=129 mg/dL 75 64 SODIUM 135 - 146 mmol/L 139 136 POTASSIUM 3.5 - 5.1 mmol/L 4.4 4.5 CHLORIDE 98 - 107 mmol/L 100 100 CO2 22 - 32 mmol/L 29 27 BUN 6 - 20 mg/dL 27 (H) 28 (H) CREATININE 0.6 - 1.2 mg/dL 1.2 1.5 (H) EGFR >=60 mL/min 71 52 (L) ANION GAP 7 - 15 mmol/L 10 9 GLUCOSE 70 - 120 mg/dL 102 89 CALCIUM 8.4 - 10.2 mg/dL 10.0 9.0 Magnesium 1.5 - 2.6 mg/dL 2.1 Protein 6.0 - 8.3 g/dL 6.9 6.3 CBC Rpt ! Rpt ! WBC 4.00 - 10.80 K/uL 5.03 6.20 RBC 4.50 - 5.25 M/uL 4.09 3.96 HGB 14.0 - 16.8 g/dL 13.8 (L) 13.3 (L) HCT 40.0 - 48.4 % 40.7 39.2 (L) MCV 82.0 - 99.5 fL 99.5 99.0 MCH 27.0 - 34.0 pg 33.7 33.6 MCHC 32.0 - 36.0 g/dL 33.9 33.9 RDW 11.5 - 15.5 % 13.9 12.2 PLT 140 - 400 K/uL 136 (L) 120 (L) MPV 6.6 - 11.1 fL 9.5 9.6 Vitamin B12 232 - 1,245 pg/mL 1,858 (H) Albumin 3.8 - 5.0 g/dL 4.8 4.4 AST 10 - 50 U/L 36 26 ALT 10 - 50 U/L 37 22 Alkaline Phosphatase 35 - 130 U/L 57 49 Bilirubin, Total <=1.2 mg/dL 0.7 0.7 Bilirubin, Direct 0.0 - 0.3 mg/dL 0.2 PSA <4.10 ng/mL 1.12 1.02 Impression HTN CKD III LILIANE, Bilaterally HLD GERD Testicular CA, s/p chemo and radiation Plan: -HR and BP well controlled -ECG completed today indicates normal sinus rhythm stable intervals -continue carvedilol, losartan, rosuvastatin, and aspirin -most recent LDL well-controlled -will get updated carotid duplex given his history of carotid artery disease -Educated patient on caution with change in positions to minimize symptomatic orthostatic hypotension -Discussed importance of diet & exercise with the patient. -Discussed with patient subtle changes in how they are feeling or completing daily activities to contact us sooner; don't wait days or weeks. DISPOSITION: Follow up 1 year or if symptoms worsen/fail to improve. All questions were answered to the patients satisfaction. Patient advised to report to ED with any and all emergencies. The patient agrees to the above plan and will call with additional questions or concerns. [facility], [address] [address] This chart was completed in part utilizing [email or web address] Voice Recognition Software. Grammatical errors, random word insertions, pronoun errors, and incomplete sentences are an occasional consequence of this system due to software limitations, ambient noise, and hardware issues. Any formal questions or concerns about the content, text, or information contained within the body of this dictation should be directly addressed to the provider for clarification. documented in this encounter Procedure Notes * Chau Pearson DO - 05/07/2024 10:25 AM ESTAssociated Order(s): EKG REASON FOR STUDY: routine;routine CONCLUSIONS: Sinus bradycardia Otherwise normal ECG When compared with ECG of 17-Nov-2023 10:46, Vent. rate has decreased by 28 bpm Ventricular Rate: 58 Atrial Rate: 58 CO Interval: 160 QRS Duration: 96 QT/QTc: 426/418 ms P-R-T [place]: 63 : 42 : 63 degrees documented in this encounter Nursing Notes * Ansley Lowe LPN - 05/07/2024 10:15 AM EST Examination Room: 16 Name: Ramon Oro Date of : 1960 Reason for Visit: Follow up Problems/Concerns: Denies complaint Interim Hosp(s): denies Chest Pain/SOB: denies MyChart Discussed: ALREADY ACTIVE Patient was instructed to not get up on the exam table until directed and assisted by their provider; patient is to remain seated in the chair/ wheelchair/ exam table for fall prevention and safety reasons. Patient is aware staff will assist stepping down off exam table with personnel. documented in this encounter Plan of Treatment Upcoming Encounters Date Type Department Care Team (Late st Contact Info) Description 05/15/2024 8:30 AM EST Imaging Vascular Lab, [facility] [address] [place] [address] 11/07/2024 9:00 AM EDT Office [address] [address] Chitra Chao MD [address] [place] [id number] 05/07/2025 8:00 AM EST Office Visit Cardiology, [address] [place] [address] Janet Carr PA-C [address] [id number] 07/03/2025 9:00 AM EDT Office Visit Ophthalmology, [address] [place] [address] Eliot Guaman DO [address] [place] [address] Scheduled Orders Name Type Priority Associated Diagnoses Orde r Schedule VASC DUPLEX CAROTID BILAT Medical Imaging Routine HTN, goal below 130/80 Hyperlipemia, mixed Asymptomatic bilateral carotid artery stenosis Expected: 05/07/2024, Expires: 06/04/2025 Scheduled Procedures Name Priority Associated Diagnoses Date/Ti [...] this encounter Medical Devices Implanted Type Area Well Shooter Device Identifier Shelf Expiration Date Model / Serial / Lot Mesh 3dmax 3.1x5.3in t Med - [id number] Implanted:Qty: 1 on 12/31/2020 by Brendan Landers MD at [facility] Left: Groin CR BARD : DAVOL 04/29/2025 [id number] / / [id number] Plt A2 Mtp Cp Rt T8 - [id number] Implanted:Qty: 1 on 01/23/2023 by Ching Patiño DPM at [facility] Right: Foot HUA : [id number] / / Screw Lag Cp 3.6x26mm - [id number] Implanted:Qty: 1 on 01/23/2023 by Ching Patiño DPM at [facility] Right: Foot HUA : ORTHOPAEDICS [id number] / / Screw Bn T[address] Lk 2.7x16mm - [id number] Implanted:Qty: 2 on 01/23/2023 by Ching Patiño DPM at [facility] Right: Foot HUA : ORTHOPA[employer]ICS [id number] / / Screw Cortical 2.7x18mm - [id number] Implanted:Qty: 1 on 01/23/2023 by Ching Patiño DPM at [facility] Right: Foot HUA : ORTHOPAEDICS [id number] / / Screw Locking 2.7x20mm - [id number] Implanted:Qty: 1 on 01/23/2023 by Ching Patiño DPM at [facility] Right: Foot HUA : ORTHOPAEDICS [id number] / / documented as of this encounter Procedures Procedure Name Priority Date/Time Associated Diagnosis Comments CO ECG ROUTINE ECG W/LEAST 12 LDS W/I&R Routine 05/07/2024 10:25 AM EST HTN, goal below 130/80 documented in this encounter Results * EKG (05/07/2024 10:25 AM EST) 05/07/2024 10:2 5 AM EST Narrative Procedure Note Chau Pearson DO - 05/07/2024 10:25 AM EST REASON FOR STUDY: routine;routine CONCLUSIONS: Sinus bradycardia Otherwise normal ECG When compared with ECG of 16-Feb-2023 10:46, Vent. rate has decreased by 28 bpm Ventricular Rate: 58 Atrial Rate: 58 CO Interval: 160 QRS Duration: 96 QT/QTc: 426/418 ms P-R-T [place]: 63 : 42 : 63 degrees us Harper RUIZ EKG F inal Result [facility] documented in this encounter Visit Diagnoses Diagnosis HTN, goal below 130/80- Primary Unspecified essential hypertension Hyperlipemia, mixed Mixed hyperlipidemia Asymptomatic bilateral carotid artery stenosis Occlusion and stenosis of multiple and bilateral precerebral arteries without mention of cerebral infarction documented in this encounter Advance Directives * Full Code (Latest Code Status on File) Date Activated Date Inactivated Comments 12/31/2020 10:43 AM 12/31/2020 6:05 PM This order reflects the patients wishes and were consensually agreed upon. Care Teams [employer] Worker Relationship Specialty Start Date End Date Derrick Granados DO [address] [facility] [place] [address] PCP - General Family Medicine 10/01/20 documented as of this encounter"
--- OUTSIDE RECORDS SUMMARY | 2024-07-20 14:34 | External Medical Summary ---
Author Name Unknown Address Unknown Organization [id number]:LAB[facility]ATORY [facility] - [address] [place] [address] Laboratory Report Ordering Provider Test Date Status SNEHAL MARTINEZ 05/01/2024 10:40:20 Final Observation Date Value Abnormality Reference (Units ) Status CK 05/01/2024 10:40:20 148 39-308 (U/ L) Final Performing Location [facility] - [address] [place] [address]
--- OUTSIDE RECORDS SUMMARY | 2024-07-20 14:34 | External Medical Summary ---
Author Name Unknown Address Unknown Organization [id number]:[facility]ATORY [facility] - [address] [place] [address] Laboratory Report Ordering Provider Test Date Status SNEHAL MARTINEZ 05/02/2024 16:24:20 Final Normal: <30 mg/g creatinine< br/>High: 30-300 mg/g creatinine
Very High: >300 mg/g creatinine
Nephrotic: >2200 mg/g creatinine Observation Date Value Abnormality Reference (Units) Status Albumin, Urine 05/02/2024 16:24:20 <1.20 (mg/dL) Final Creatinine, Urine 05/02/2024 16:24:20 12 (mg/dL) Final ALBUMIN/CREATININE RATIO, HIDE 05/02/2024 16:24:20 Uninterpretable Albumin/Creatinine ratio due to very low albumin and creatinine values. <30 (mg/g Creat) Final Performing Location LABORATORY [facility] - [address] [place] [address]
--- OUTSIDE RECORDS SUMMARY | 2024-07-20 14:34 | External Medical Summary | Summary of Care ---
Author Name Unknown Organization [facility] Address [address] [facility] [place] [address] Phone [phone] Care Team Providers Care Hot Punch Press Operator Name Role Phone Elaine Granados DO Primary Care Provider Reason for Visit * Reason Comments eRx-Medication Refill Encounter Details Date Type Department Care Team (Late st Contact Info) Description 04/12/2024 Refill Family Practice [facility] [address] [place] [id number] Elaine Granados DO [address] [place] [id number] Anxiety state Allergies No known active allergiesdocumented as of this encounter (statuses as of 04/17/2024) Medications ASPIRIN 81 MG PO TABS Take by mouth 2 times a day. Active cholecalcifero l, VIT D3, (VITAMIN D3) 1000 UNITS Tablet Take 1 Tablet by mouth in the morning. 6 Active Ventolin HFA 108 (90 Base) MCG/ACT Inhalation Aerosol Solution Inhale by mouth 2 Puffs every 4 hours as needed for Wheezing. 18 g 2 Active Eye Drops 0.012-0.2 % Ophthalmic Solution (Naphazoline-P olyethyl Glycol) Instill 1 Drop into both eyes [...] MG Oral Tablet Extended Release 12 Hour (Mucinex)Indic ations:Protrac darshana URI Take 1 Tablet by mouth 2 times a day as needed for Congestion. Take with plenty of water. Do not cut, crush or chew 40 Tablet 2 3 Active busPIRone HCl 10 MG Oral Tablet (Buspar)Indica tions:Mood disorder (HCC) Take 1 Tablet by mouth in the morning and 1 Tablet before bedtime. 180 Tablet 3 4 Active Losartan Potassium 50 MG Oral Tablet (Cozaar)Indica tions:HTN, goal below 130/80 Take 1 Tablet by mouth in the morning. 90 Tablet 3 4 Active Rosuvastatin Calcium 40 MG Oral Tablet (Crestor) Take 1 Tablet by mouth at bedtime. 90 Tablet 3 4 Active Terazosin HCl 1 MG Oral Capsule (Hytrin)Indica tions:HTN, goal below 130/80 Take 1 Capsule by [...] AT BEDTIME 90 Tablet 1 4 Active Ventolin HFA 108 (90 Base) MCG/ACT Inhalation Aerosol SolutionIndica tions:Viral URI with cough Inhale 2 Puffs by mouth every 4 hours as needed for Wheezing. 18 g 3 4 Active Omeprazole 20 MG Oral Capsule Delayed Release (PriLOSEC) TAKE 1 CAPSULE BY MOUTH ONCE DAILY at least 1 hour before first meal 90 Capsule 4 Active Escitalopram Oxalate 10 MG Oral Tablet (Lexapro)Indic ations:Anxiety state Take 1 Tablet by mouth in the morning. 30 Tablet 2 5 Active Escitalopram Oxalate 10 MG Oral Tablet (Lexapro)Indic ations:Anxiety state Take 1 Tablet by mouth in the morning. 30 Tablet 2 4 04/13/19 25 Discontinued documented as of this encounter (statuses as of 04/17/2024) Active Problems Problem Noted Date Diagnosed Date Mood disorder 01/09/2023 YISEL (generalized anxiety disorder) 11/09/2022 Lumbar degenerative disc disease 11/09/2022 Gastroesophageal reflux disease with esophagitis 01/03/2019 Dyslipidemia 03/15/2009 Overview (03/15/2009): Per Lipid Taxonomy. HTN, goal below 130/80 02/18/2009 Overview (02/18/2009): Modified per HTN protocol #16. documented as of this encounter (statuses as of 04/17/2024) Resolved Problems Problem Noted Date Diagnosed Date [...] as of this encounter (statuses as of 04/17/2024) Immunizations Name Administration Dates Next Due COVID-19 mRNA, LNP-s, No Pre serve, 2-Dose Series (Moderna) 07/26/2020,06/28/2020 COVID-19, mRNA, LNP-s, PF, B ooster, 100mcg/0.5mg (Moderna) 07/21/2021,02/11/2021 Seasonal Influenza Vac., MDV , IM, 0.5 mL (Fluzone) 01/13/2014,12/19/2011,02/22/2011 Seasonal Influenza, PF, 6 M & above, IM , (FluLaval or Fluzone) 02/16/2023,12/15/2021,12/09/2020,2019 Seasonal Influenza, Quadriva lent, No Preserve, IM 12/15/2015 TDAP (age 10 [...] Date Recorded PHQ Adult Total Score 0 03/01/2021 Hunger Vital Sign Answer Date Recorded Within the past 12 months, y ou worried that your food would run out before you got the money to buy more. Never true 12/27/19 23 Within the past 12 months, t he food you bought just didn't last and you didn't have money to get more. Never true 12/26/2022 Childcare Answer Date Recorded Do you feel overwhelmed with taking care of a child, family member or friend? No 12/26/2022 Does your family need help f inding childcare? (Household - for ages 0-17 years) Not on file 12/26/2022 Clothing Answer Date Recorded Have you been unable to get clothing when it was really needed? No 12/26/2022 Is your family able to get c lothes or diapers when needed? (Household - for ages 0-17 years) Not on file 12/26/2022 Personal Safety Answer Date Recorded Do you feel unsafe or have concerns for your saf ety? No 12/26/2022 Do you have concerns for you r family's safety? (Household - for ages 0-17 years) Not on file 12/26/2022 Utilities Answer Date Recorded Do you have trouble paying y our heating, water, or electric bill? (Adult - for ages 18 years and over) Not on file 01/01/2024 Is your family able to pay t he heat, water, or electric bill? (Household - for ages 0-17 years) Not on file 01/01/2024 Does your family have access to good internet? (Household - for ages 0-17 years) Not on file 01/01/2024 Employment Status Answer Date Recorded Are you unemployed or without regular income? No 12/26/2022 Does the household have a re gular source of income? (Household - for ages 0-17 years) Not on file 12/26/2022 Social Connections Answer Date Recorded How often do you feel lonely or isolated from those around you? (Adult - for ages 18 years and over) Not on file 01/01/2024 Financial Resource Strain Answer Date R ecorded Do you have any trouble payi ng for your medications, or do you think you might in the future? No 12/26/2022 Does your family have troubl e paying for medicine? (Household - for ages 0-17 years) Not on file 12/26/2022 Transportation Needs Answer Date Record ed READ ONLY Do you have troubl e getting a ride to medical visits or work? Never True 12/26/2022 Does your family have a hard time getting a ride to doctors visits? (Household - for ages 0-17 years) Not on file 12/26/2022 Has lack of transportation k ept you from medical appointments, meetings, work, or from getting things needed for daily living? Check all that apply. (Adult - for ages 18 years and over) Not on file 12/26/2022 Do you (or your family) have trouble finding or paying for a ride (transportation)? (Household - for ages 0-17 years) Not on file 12/26/2022 Housing Stability Answer Date Recorded Do you currently live in a s helter or have no steady place to sleep at night? No 12/26/2022 READ ONLY Do you think you a re at risk of becoming homeless? No 12/26/2022 Does your family worry about paying for your home or becoming homeless? (Household - for ages 0-17 years) Not on file 0 12/26/2022 Are you homeless or worried that you might be in the future? (Adult - for ages 18 years and over) Not on file Are you (or your family) brenna eless or worried that you might be in the future? (Household - for ages 0-17 years) Not on file Food Insecurity Answer Date Recorded Do you need food for this week? No 12/26/2022 Are you able to get enough f ood for your family? (Household - for ages 0-17 years) Not on file 12/26/2022 Does your family need food t his week? (Household - for ages 0-17 years) Not on file 12/26/2022 Do you always have enough fo od for your family? (Household - for ages 0-17 years) Not on file 12/26/2022 Sex and Gender Information Value Date Recorded Sex Assigned at Male 11/09/2022 2:08 PM EDT Legal Sex Male 4:56 AM EST Gender Identity Male 11/09/2022 2:08 PM EDT Sexual Orientation Straight 11/09/2022 2: 08 PM EDT documented as of this encounter Miscellaneous Notes * Telephone Encounter - Wood Velázquez - 04/17/2024 10:04 AM EST Received message from [facility] regarding patient needing an appointment. Patient was notified. Successfully contacted patient and provided [facility] message. * Telephone Encounter - Ankush Gilliam [facility] - 04/13/2024 2:45 PM ESTSigned Prescriptions: Disp Refills Escitalopram Oxalate 10 MG Oral Tablet (Le*30 Tab*2 Sig: Take 1 Tablet by mouth in the morning. Authorizing Provider: ELAINE GRANADOS Ordering User: ANKUSH GILLIAM * Telephone Encounter - Ankush Gilliam RPh - 04/13/2024 2:44 PM EST 2nd attempt Please contact patient so that an appointment can be scheduled with his PRIMARY CARE provider. Refill authorized to hold patient over in the mean time. Last Visit: 01/09/2023 (in office), 06/03/2021 (telemedicine) Next Visit: Visit date not found Thank you, Ankush Gilliam, PharmD Clinical Pharmacist [facility] 04/13/24 2:44 PM [phone] documented in this encounter Plan of Treatment Scheduled Procedures Name Priority Associated Diagnoses Date/Ti me COLONOSCOPY FLEXIBLE PROXIMA L DIAGNOSTIC Recall Encounter for screening colonoscopy Health Maintenance Due Date Last Done Comments Cologuard 2005 Fecal Occult Blood Test 2005 Sigmoidoscopy 2005 Pneumococcal Vaccine: 50+ Years (1 of 1 - PCV) 2010 Depression Screening 03/01/2022 03/01/2021 COVID-19 Vaccine ( season) 2023 07/21/2021, 02/11/2021, 07/26/2020, Additional history exists Influenza Vaccine (FLU shot) (#1) 2023 02/16/2023, 12/15/2021, 12/09/2020, Additional history exists GFR 03/06/2024 03/06/2023, 04/02, 03/18/2021, Additional history exists Albumin/Creatinine Ratio 12/15/2024 022, 02/03/2014, 05/26/2011 Colonoscopy 12/06/2026 12/06/2021, 09/0 08/2021, 12/30/2015, Additional history exists Colorectal Cancer Screening 12/06/2026 Lipid Panel 03/06/2028 03/06/2023, 04/02, 12/09/2020, Additional history exists DTap/Tdap Vaccines (3 - Td or Tdap) 12/09/2030 12/09/2020, 10/27/2010 Zoster Vaccines Completed 03/15/2020, 12/12/2017 RETIRED - COLONOSCOPY-EVERY 5 YRS AGES 18-100 Discontinued 12/06/2021, 12/06/2021, 12/30/2015, Additional history exists HPV (Gardasil) Vaccine Aged Out No lo nger eligible based on patient's age to complete this topic Hepatitis B Vaccine Aged Out No longe r eligible based on patient's age to complete this topic MENINGOCOCCAL (MENACTRA/MENVEO) Aged Out No longer eligible based on patient's age to complete this topic documented as of this encounter Medical Devices Implanted Type Area Tool Operator Device Identifier Shelf Expiration Date Model / Serial / Lot Mesh 3dmax 3.1x5.3in t Med - [id number] Implanted:Qty: 1 on 12/31/2020 by Brendan Landers MD at OR [facility] Left: Groin CR BARD : DAVOL 04/29/2025 [id number] / / [id number] Plt A2 Mtp Cp Rt T8 - [id number] Implanted:Qty: 1 on 01/23/2023 by Ching Patiño DPM at OR [facility] Right: Foot HUA : TRAUMA [id number] / / Screw Lag Cp 3.6x26mm - [id number] Implanted:Qty: 1 on 01/23/2023 by Ching Patiño DPM at OR [facility] Right: Foot HUA : ORTHOPAEDICS [id number] / / Screw Bn T8 Ft St Lk 2.7x16mm - [id number] Implanted:Qty: 2 on 01/23/2023 by Ching Patiño DPM at OR [facility] Right: Foot HUA : ORTHOPAEDICS [id number] / / Screw Cortical 2.7x18mm - [id number] Implanted:Qty: 1 on 01/23/2023 by Ching Patiño DPM at OR [facility] Right: Foot HUA : ORTHOPAEDICS [id number] / / Screw Locking 2.7x20mm - [id number] Implanted:Qty: 1 on 01/23/2023 by Ching Patiño DPM at OR [facility] Right: Foot HUA : ORTHOPAEDICS [id number] / / documented as of this encounter Visit Diagnoses Diagnosis Anxiety state Anxiety state, unspecified documented in this encounter Advance Directives * Full Code (Latest Code Status on File) Date Activated Date Inactivated Comments 12/31/2020 10:43 AM 12/31/2020 6:05 PM This order reflects the patients wishes and were consensually agreed upon. Care Teams Hot Punch Press Operator Relationship Specialty Start Date End Date Elaine Granados DO [address] [place] [address] PCP - General Family Medicine 10/01/20 documented as of this encounter
--- OUTSIDE RECORDS SUMMARY | 2024-07-20 14:34 | External Medical Summary | Summary of Care ---
Author Name Unknown Organization [facility] Address [address] [facility] [place] [address] Phone [phone] Care Team Providers Care Gas Main Fitter Name Role Phone Derrick Granados DO Primary Care Provider Reason for Visit * Reason Comments Eye Exam Encounter Details Date Type Department Care Team (Late st Contact Info) Description 05/05/2024 8:30 AM EST Office Visit OphthalmologyDavid [address] [place] [address] Eliot Guaman DO [facility] [place] [address] HSV stromal keratitis*; Dry eyes, bilateral; Meibomian gland dysfunction (MGD) of both eyes; Combined forms of age-related cataract of both eyes Allergies No known active allergiesdocumented as of this encounter (statuses as of 05/05/2024) Medications ASPIRIN 81 MG PO TABS Take [...] as needed for Wheezing. 18 g 2 05/05/19 25 Discontinu ed(Refill) documented as of this encounter (statuses as of 05/05/2024) Active Problems Problem Noted Date Diagnosed Date Mood disorder 01/09/2023 YISEL (generalized anxiety disorder) 11/09/2022 Lumbar degenerative disc disease 11/09/2022 Gastroesophageal reflux disease with esophagitis 01/03/2019 Dyslipidemia 03/15/2009 Overview (03/15/2009): Per Lipid Taxonomy. HTN, goal below 130/80 02/18/2009 Overview (02/18/2009): Modified per HTN protocol #16. documented as of this encounter (statuses as of 05/05/2024) Resolved Problems Problem Noted Date Diagnosed Date [...] as of this encounter (statuses as of 05/05/2024) Immunizations Name Administration Dates Next Due COVID-19 mRNA, LNP-s, No Pre serve, 2-Dose Series (Moderna) 07/26/2020,06/28/2020 COVID-19, mRNA, LNP-s, PF, B ooster, 100mcg/0.5mg (Moderna) 07/21/2021,02/11/2021 Pneumococcal Conjugate Vacci ne, 20-valent ([id number]) 05/02/2024 Seasonal Influenza Vac., MDV , IM, [...] No 05/02/2024 Does the household have a [facility] source of income? (Household - for ages [...] PM EDT documented as of this encounter Progress Notes * Eliot Guaman DO - 05/05/2024 8:30 AM EST 05/05/24 [facility] Op[facility] Note HPI: Ramon Oro is a 64 year old pt who presents to the eye clinic today as a return. Location: OU Severity: Moderate Quality: Doing well Exacerbating/Remitting Factors: Denies Associated Sx: Denies Optometry - [employer] [facility] [employer] Past Ocular History: Hx of HSV keratitis, right eye () RUDDY, MGD OU Glasses Eye Medications: Valtrex 500mg BID Systane daily OU Family Ocular History: Denies ROS: Pt denies acute vision changes Pt denies new onset double vision Pt denies new SCHWARTZ Pt denies new issues surrounding eyes Pt admits to above Please see below for full exam details. Base Eye Exam Visual Acuity (Snellen - Linear) Right Left Dist cc 20/20 20/20 Near sc 20/20 20/20 Correction: Glasses Tonometry (Tonopen, 8:43 AM) Right Left Pressure 15 13 Pachymetry (04/20/2022) Right Left Thickness 546 548 Pupils Dark Light Shape React APD Right 4 3 Round Brisk None Left 4 3 Round Brisk None Visual Dsouza Right Left Full Full Extraocular Movement Right Left Full Full Neuro/Psych Oriented x3: Yes Mood/Affect: Normal Dilation Both eyes: 1.0% Mydriacyl, 2.5% Phenylephrine @ 8:43 AM Additional Tests Keratometry K1 [place] K2 [place] Right 44.50 13 45.50 103 Left 44.50 167 45.25 77 Slit Lamp and Fundus Exam External Exam Right Left External Normal Normal Slit Lamp Exam Right Left Lids/Lashes MGD, blepharitis MGD, blepharitis Conjunctiva/Sclera White and quiet White and quiet Cornea Large endothelial scar inferior from 4-7 o'clock sparing central visual axis, endothelial scar temporal periphery 8-10 o'clock, PEK Decreased TBUT, PEK Anterior Chamber Deep and quiet Deep and quiet Iris Round and reactive Round and reactive Lens 1+ Nuclear sclerosis 1+ Nuclear sclerosis Fundus Exam Right Left Vitreous Normal Normal Disc Normal Normal C/D Ratio 0.4 0.4 Macula Normal Normal Vessels Normal Normal Periphery Normal Normal Refraction Wearing Rx Sphere Cylinder [place] Right -2.75 +0.25 086 Left -2.75 +0.75 077 Manifest Refraction Sphere Cylinder [place] Right -3.50 +0.75 106 Left -2.25 +0.25 097 A/P: HSV keratitis, right eye -Impressive endothelial scarring, all sparing central visual axis -Maintain valtrex 500mg BID All stable Plan: -Valtrex 500mg BID Cataract, OU -Mild, monitor Dry Eyes, MGD, OU -Recommend artificial tears up to 4 times daily Refractive error -Monitor RTC 1 year or sooner prn. Eliot Guaman DO 05/05/24 I spent a total of 10-19 minutes (exact time 15 mins) on the date of service in preparation, delivery, and documentation of the care provided to Ramon Oro excluding any time spent in the performance of separately billed services or time spent by another provider/QHP. documented in this encounter Nursing Notes * Radha Arias TECH - 05/05/2024 8:29 AM EST Pt presents in clinic today for an eye exam. documented in this encounter Plan of Treatment Upcoming Encounters Date Type Department Care Team (Late st Contact Info) Description 05/07/2024 10:00 AM EST Office Visit Cardiology, [facility] [address] [place] [address] Harper Currie CRNP [address] [place] [address] 11/07/2024 9:00 AM EDT [facility] [address] [facility] [address] Chitra Chao MD [address] [place] [address] 07/03/2025 9:00 AM EDT Office Visit Ophthalmology, [place] [address] [place] [address] Eliot Guaman DO [address] [place] [address] Scheduled Procedures Name Priority Associated Diagnoses Date/Ti [...] this encounter Medical Devices Implanted Type Area Chairman Device Identifier Shelf Expiration Date Model / Serial / Lot Mesh 3dmax 3.1x5.3in t Med - [id number] Implanted:Qty: 1 on 12/31/2020 by Brendan Landers MD at OR [facility] Left: Groin CR BARD : DAVOL 04/29/2025 [id number] / / [id number] Plt A2 Mtp Cp Rt T8 - [id number] Implanted:Qty: 1 on 01/23/2023 by Ching Patiño DPM at OR [facility] Right: Foot HUA : TRAUMA [id number] / / Screw Lag Cp 3.6x26mm - [id number] Implanted:Qty: 1 on 01/23/2023 by Ching Patiño DPM at OR [facility] Right: Foot HUA : ORTHOPAEDICS [id number] / / Screw Bn T8 Ft St Lk 2.7x16mm - [id number] Implanted:Qty: 2 on 01/23/2023 by Ching Patiño DPM at OR [facility] Right: Foot HUA : ORTHOPAEDICS [id number] / / Screw Cortical 2.7x18mm - [id number] Implanted:Qty: 1 on 01/23/2023 by Ching Patiño DPM at OR [facility] Right: Foot HUA : ORTHOPAEDICS [id number] / / Screw Locking 2.7x20mm - [id number] Implanted:Qty: 1 on 01/23/2023 by Ching Patiño DPM at OR [facility] Right: Foot HUA : ORTHOPAEDICS [id number] / / documented as of this encounter Visit Diagnoses Diagnosis 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 Care Teams Gas Main Fitter Relationship Specialty Start Date End Date Derrick Granados DO [address] [place] [address] PCP - General Family Medicine 10/01/20 documented as of this encounter
--- OUTSIDE RECORDS SUMMARY | 2024-07-20 14:34 | External Medical Summary ---
Author Name Unknown Address Unknown Organization [id number]:[facility] - [address] [facility] [place] [address] Laboratory Report Ordering Provider Test Date Status LYDIA HARLEY 05/01/2024 10:40:20 Final Observation Date Value Abnormality Reference (Units ) Status Triglyceride 05/01/2024 10:40:20 48 <=174 ( mg/dL) Final Triglyceride Reference Range s (mg/dL):
<150 Acceptable
150-174 Borderline high
175-499 High
>=500 Very high Cholesterol 05/01/2024 10:40:20 138 <200 (mg /dL) Final Total Cholesterol Reference Ranges (mg/dL):
<200 Desirable
200-239 Borderline high
>=240 High HDL 05/01/2024 10:40:20 64 >39 (mg/dL ) Final HDL Cholesterol Reference Ra nges (mg/dL):
>=60 High (Desirable)
<50 Low (Undesirable) For Females
<40 Low (Undesirable) For Males NON-HDL CHOLESTEROL 05/01/2024 10:40:20 74 <=159 (mg/dL) Final Non-HDL Cholesterol Referenc e Range (mg/dL):
<100 Target level for high risk ASCVD patient
<130 Optimal for general population
130-159 Near optimal for general population
160-189 Borderline High
190-219 High
>=220 Very High LDL, (calculated) 05/01/2024 10:40:20 64 <= 129 (mg/dL) Final LDL Cholesterol Reference Ra nges (mg/dL):
<70 Target level for high risk ASCVD patient
<100 Optimal for general population
100-129 Near optimal for general population
130-159 Borderline high
160-189 High
>=190 Very high Performing Location LABORATORY [facility] - [address] [facility] [place] [address]
--- OUTSIDE RECORDS SUMMARY | 2024-07-20 14:34 | External Medical Summary ---
Author Name Unknown Address Unknown Organization K01:[facility]ATORY [facility] - [address] [place] [address] Laboratory Report Ordering Provider Test Date Status LYDIA HARLEY 05/01/2024 10:40:20 Final Observation Date Value Abnormality Reference (Units ) Status Magnesium 05/01/2024 10:40:20 2.1 1.5-2.6 (m g/dL) Final Performing Location LAB[facility]ATORY [facility] - [address] [place] [address]
--- OUTSIDE RECORDS SUMMARY | 2024-07-20 14:34 | External Medical Summary | Summary of Care ---
Author Name Unknown Organization [facility] Address [address] [place] [address] Phone [phone] Care Team Providers Care Customer Engineering Specialist Name Role Phone GranadosDerricksejal DO Primary Care Provider Reason for Visit * Reason Comments Hypertension Chronic Kidney Disease (CKD) Encounter Details Date Type Department Care Team (Late st Contact Info) Description 05/02/2024 4:00 PM EST Office Visit Nephrology, Joey [facility] [address] [place] [address] Jose R James MD [address] [facility] [place] [address] DESEAN (acute kidney injury) (HCC)*; Stage 3b chronic kidney disease (HCC) Allergies No known active allergiesdocumented as of this encounter (statuses as of 05/03/2024) Medications ASPIRIN 81 MG PO TABS Take by mouth 2 times a day. Active cholecalciferol, VIT D3, (VITAMIN D3) 1000 UNITS Tablet Take 1 Tablet by mouth in the morning. 12/13/2015 Active Ventolin HFA 108 (90 Base) MCG/ACT Inhalation Aerosol Solution Inhale by mouth 2 Puffs every 4 hours as needed for Wheezing. 18 g 06/03/2021 Active Eye Drops 0.012-0.2 % Ophthalmic Solution [...] five 6 Tablet 05/02/2024 05/07/19 25 Active documented as of this encounter (statuses as of 05/03/2024) Active Problems Problem Noted Date Diagnosed Date Mood disorder 01/09/2023 YISEL (generalized anxiety disorder) 11/09/2022 Lumbar degenerative disc disease 11/09/2022 Gastroesophageal reflux disease with esophagitis 01/03/2019 Dyslipidemia 03/15/2009 Overview (03/15/2009): Per Lipid Taxonomy. HTN, goal below 130/80 02/18/2009 Overview (02/18/2009): Modified per HTN protocol #16. documented as of this encounter (statuses as of 05/03/2024) Resolved Problems Problem Noted Date Diagnosed Date [...] as of this encounter (statuses as of 05/03/2024) Immunizations Name Administration Dates Next Due COVID-19 mRNA, LNP-s, No Pre serve, 2-Dose Series (Moderna) 07/26/2020,06/28/2020 COVID-19, mRNA, LNP-s, PF, B ooster, 100mcg/0.5mg (Moderna) 07/21/2021,02/11/2021 Pneumococcal Conjugate Vacci ne, 20-valent ([id number]) 05/02/2024 Seasonal Influenza Vac., MDV , IM, [...] Sign Reading Time Taken Comments Blood Pressure 121/71 05/02/2024 3:49 PM EST Pulse 83 05/02/2024 3:49 PM EST Temperature 36.6 °C (97.9 °F) 05/02/2024 3:49 PM ES T Respiratory Rate 18 05/02/2024 3:49 PM EST Oxygen Saturation 93% 05/02/2024 3:49 PM EST Inhaled Oxygen Concentration - - Weight 78 kg (172 lb) 05/02/2024 3:49 PM EST Height - - Body Mass Index 25.04 06/05/2023 4:14 PM EST documented in this encounter Progress Notes * Jose R James MD - 05/02/2024 4:04 PM EST Chief Complaint Patient presents with Hypertension Chronic Kidney Disease (CKD) HPI: 64 /M yo male who was seen for initial evaluation for hypokalemia and hypocalcemia many years ago by Dr. Preston. Was also seen in the office in 2012 with hospital follow up with desean with two hospitiilizations with hx of htn for about 20 yrs. However at this time kidney function is normal with a creatinine of 1.1 GFR of 70 normal potassium and normal calcium. He does take vitamin-D and a potassium supplement 20 mEq per day. Blood pressure is well control. No longer chews tobacco. No nsaids. Drinking lots of water. Since last visit January 2021----he was dealing with lot of emotional and psychiatric issues as his daughter and on bone granddaughter in a motor vehicle accident last year. He was seen earlier today because of bronchitis symptoms and was prescribed antibiotics blood work done yesterday showed creatinine was somewhat worse at 1.5 giving a lower GFR of 52. This has been very concerned He was taking creatinine supplement and doing lot of weightlifting. He has stopped taking the creatinine supplement earlier today. He does not take NSAIDs and he drinks massive amount of water as much as 4-5 L per day PHM: Patient Active Problem List Diagnosis HTN, goal below 130/80 Dyslipidemia Gastroesophageal reflux disease with esophagitis YISEL (generalized anxiety disorder) Lumbar degenerative disc disease Mood disorder (HCC) Current Outpatient Medications Medication Sig Dispense Refill ASPIRIN 81 MG PO TABS Take by mouth 2 times a day. cholecalciferol, VIT D3, (VITAMIN D3) 1000 UNITS Tablet Take 1 Tablet by mouth in the morning. Ventolin HFA 108 (90 Base) MCG/ACT Inhalation Aerosol Solution Inhale by mouth 2 Puffs every 4 hours as needed for Wheezing. 18 g 0 Eye Drops 0.012-0.2 % Ophthalmic Solution (Naphazoline-Polyethyl [...] 1 Tablet before bedtime. 68 Tablet 11 Omeprazole 20 MG Oral Capsule Delayed Release [...] dose in 24 hours. 30 Tablet 0 Azithromycin 250 MG Oral Tablet (Zithromax) Take 2 tabs by mouth on the first day, then 1 tab dailyon days two through five 6 Tablet 0 traZODone HCl 100 MG Oral Tablet (Desyrel) TAKE 1 TABLET BY MOUTH AT BEDTIME 90 Tablet 1 No current facility-administered medications for this visit. [...] TUNNEL performed by Tha Gomez MD at [facility] COLONOSCOPY, DIAGNOSTIC (RECTUM) 04/10/2011 normal COLONOSCOPY, DIAGNOSTIC (RECTUM) 12/30/2015 normal bx, diverticulosis/COLONOSCOPY FLEXIBLE PROXIMAL DIAGNOSTIC performed by Carrington Ash MD at ENDOSCOPY [facility] COLONOSCOPY, DIAGNOSTIC (RECTUM) 12/06/2021 fair prep, repeat 5 yrs / COLONOSCOPY FLEXIBLE PROXIMAL DIAGNOSTIC performed by Nader Morataya MD at ENDOSCOPY [facility] FUSION OF GREAT TOE JOINT Right 01/23/2023 METATARSOPHALANGEAL ARTHRODESIS GREAT TOE performed by Ching Patiño DPM at OR [facility] INCISION OF TENDON SHEATH Right 05/26/2020 INCISION EXTENSOR TENDON SHEATH WRIST performed by Tha Gomez MD at OR [facility] LAP;REPAIR RECURRENT HERNIA Left 12/27/2020 LAPAROSCOPY; REPAIR INITIAL INGUINAL HERNIA Left 12/31/2020 LAPAROSCOPIC REPAIR INGUINAL HERNIA INITIAL performed by Brendan Landers MD at [facility] MISCELLANEOUS ORDER ([facility] ONLY) tubes in ears REMOVAL OF APPENDIX REMOVAL OF TONSILS, UNDER AGE 12 REMOVE WRIST/FOREARM LESION,FLEXORS Right 05/26/2020 RADICAL EXCISION BURSA SYNOVIA WRIST OR FOREARM performed by Tha Gomez MD at OR [facility] REPAIR INITIAL INGUINAL HERNIA REDUCIBLE AGE 5 OR MORE REPAIR OF HAMMERTOE, ONE TOE Right 01/23/2023 CORRECTION HAMMERTOE performed by Ching Patiño DPM at [facility] REPAIR OF HYDROCELE TENDON SHEATH INCISION, FINGER Right 05/26/2020 TRIGGER FINGER RELEASE performed by Tha Gomez MD at OR [facility] Review of patient's allergies indicates: No Known Allergies Family History Problem Relation Name Age of Onset Cancer Grandmother (Paternal) colon Cancer Grandfather (Paternal) colon, lung Hypertension Father No Past Hx Mother No family status information on file. History Social History Marital Status: Spouse Name: N/A Number of Children: N/A Years of Education: N/A Occupational History Not on file. Social History Main Topics Smoking status: Never Smoker Smokeless tobacco: Never Used Alcohol Use: No Drug Use: No Sexual Activity: Partners: Female Other Topics Concern Not on file Social History Narrative Review of Systems: General: No change in weight, No fevers, sweats, or chills and + fatigue Head: No significant headache and No recent significant head injury Neck: No complaint of lumps in neck and No recent swelling in thyroid area Respiratory: No cough, sputum, or hemoptysis and No shortness of breath Cardiac: No chest pain and No edema Gastrointestinal: No dysphagia, No nausea, vomiting, diarrhea, or constipation and No abdominal pain Urinary: No dysuria, No hematuria and + nocturia Musculoskeletal: No joint pain or stiffness, No joint swelling and + arthritis both shoulders Neurologic: No fainting or blackouts, No seizures and No tremors Skin: No edema, No rash and No itching Objective: BP 121/71 (BP Site: Right Arm, BP Position: Sitting, BP Cuff Size: Regular) | Pulse 83 | Temp 36.6 °C (97.9 °F) | Resp 18 | Wt 78 kg (172 lb) | SpO2 93% | BMI 25.04 kg/m² | BSA 1.96 m² BP Readings from Last 4 Encounters: 05/02/24 121/71 05/02/24 120/70 06/12/23 144/86 06/05/23 136/70 Wt Readings from Last 3 Encounters: 05/02/24 78 kg (172 lb) 05/02/24 75.8 kg (167 lb 1 oz) 06/12/23 74.4 kg (164 lb) Physical Exam: General: alert, healthy, no distress, well nourished and well developed Head: Normocephalic, No masses, lesions, tenderness or abnormalities Neck: supple, no adenopathy, no bruits Heart: regular rate & rhythm, no murmurs and no gallops Lungs: no chest wall tenderness, lungs clear to auscultation Abdomen: abdomen soft, non-tender and normal bowel sounds Extremities: no joint deformities, effusion, or inflammation, no edema, no clubbing Neuro Exam: alert & oriented x 3 with fluent speech, no focal motor/sensory deficits, gait normal NEPH-FLOW Latest Ref Rng & Units 10/01/2020 10/18/2020 10/29/2020 Bun 6 - 20 mg/dL 21 (H) 22 (H) Cr 0.6 - 1.2 mg/dL 1.3 (H) 1.3 (H) eGFR >=60.0 mL/min 59.9 (L) 58.8 (L) eGFR >60 K 3.5 - 5.1 mmol/L 4.0 3.8 Hb 14.0 - 16.8 g/dL 12.0 (L) 11.6 (L) 12.0 (L) Microalb/cr ratio <31 mg/g creat NEPH-FLOW Latest Ref Rng & Units 11/29/2020 12/09/2020 12/09/2020 Bun 6 - 20 mg/dL 23 (H) 31 (H) Cr 0.6 - 1.2 mg/dL 1.1 1.1 1.1 eGFR >=60.0 mL/min 73.4 69.5 69.5 eGFR >60 K 3.5 - 5.1 mmol/L 4.2 4.5 Hb 14.0 - 16.8 g/dL 11.9 (L) 11.6 (L) Microalb/cr ratio <31 mg/g creat ASSESSMENT/PLAN: DESEAN (acute kidney injury) (HCC) (Primary) Stage 3b chronic kidney disease (HCC) However no real risk factor for kidney decline. Labs done few days ago reviewed and discussed and are stable. Blood work done yesterday did show significant drop of GFR from 71-52. Most likely this is related with the acute illness that he is having now with bronchitis like symptoms. He was also doing lot of weightlifting and taking creatinine supplement so can cause elevated creatinine from micro rhabdomyolysis from excessive weightlifting as well as creatinine supplement causing elevated creatinine. In any case both these causes are temporary. I expect his kidney function to be better when we check it again in about 10-14 days Will do urine test today Will do blood test in about 10 days. On that blood test I expect his kidney function to be better - CK; Future; Expected date: 05/02/2024 - NEPHROLOGY FOLLOW UP APPT (DEPARTMENT USE ONLY); Future; Expected date: 10/30/2024 - ALBUMIN / CREATININE RATIO, URINE; Future; Expected date: 05/02/2024 - URINALYSIS WITH MICROSCOPIC EXAM; Future; Expected date: 05/02/2024 - ALBUMIN / CREATININE RATIO, URINE - URINALYSIS WITH MICROSCOPIC EXAM - RENAL FUNCTION PANEL; Future; Expected date: 05/02/2024 - PTH; Future; Expected date: 05/02/2024 - HGB; Future; Expected date: 05/02/2024 - 25-HYDROXY VITAMIN D; Future; Expected date: 05/02/2024 Jose R James MD documented in this encounter Nursing Notes * Rebecca Grier RN - 05/02/2024 3:51 PM EST Follow up visit today. Being treated for bronchitis. documented in this encounter Plan of Treatment Upcoming Encounters Date Type Department Care Team (Late st Contact Info) Description 05/05/2024 8:30 AM EST Office Visit Ophthalmology, [place] [address] [facility] [address] Eliot Guaman DO [address] [facility] [address] 05/07/2024 10:00 AM EST Office Visit Cardiology, [facility] [address] [facility] [place] [address] Harper Currie CRNP [address] [place] [address] 11/07/2024 9:00 AM EDT Office Visit Nephrology, [facility] [address] [facility] [place] [facility] [address] Chitra Chao MD [address] [place] [address] Scheduled Orders Name Type Priority Associated Diagnoses Orde r Schedule RENAL FUNCTION PANEL Lab Routine DESEAN (acute kidney injury) (HCC) Stage 3b chronic kidney disease (HCC) Expected: 05/02/2024 (Approximate), Expires: 10/29/2024 PTH Lab Routine DESEAN (acute kidney injury) (HCC) Stage 3b chronic kidney disease (HCC) Expected: 05/02/2024 (Approximate), Expires: 10/29/2024 HGB Lab Routine DESEAN (acute kidney injury) (HCC) Stage 3b chronic kidney disease (HCC) Expected: 05/02/2024 (Approximate), Expires: 10/29/2024 25-HYDROXY VITAMIN D Lab Routine DESEAN (acute kidney injury) (HCC) Stage 3b chronic kidney disease (HCC) Expected: 05/02/2024 (Approximate), Expires: 10/29/2024 Scheduled Procedures Name Priority Associated Diagnoses Date/Ti [...] this encounter Medical Devices Implanted Type Area Systems Consultant Device Identifier Shelf Expiration Date Model / Serial / Lot Mesh 3dmax 3.1x5.3in Lft Med - [id number] Implanted:Qty: 1 on 12/31/2020 by Brendan Landers MD at OR [facility] Left: Groin CR BARD : DAVOL 04/29/2025 [id number] / / [id number] Plt A2 Mtp Cp Rt T8 - [id number] Implanted:Qty: 1 on 01/23/2023 by Ching Patiño DPM at OR [facility] Right: Foot HUA : [id number] / / Screw Lag Cp 3.6x26mm - [id number] Implanted:Qty: 1 on 01/23/2023 by Ching Patiño DPM at OR [facility] Right: Foot HUA : ORTHOPAEDICS [id number] / / Screw Bn T8 Ft St Lk 2.7x16mm - [id number] Implanted:Qty: 2 on 01/23/2023 by Ching Patiño DPM at OR [facility] Right: Foot HUA : ORTHOPAEDICS [id number] / / Screw Cortical 2.7x18mm - [id number] Implanted:Qty: 1 on 01/23/2023 by Ching Patiño DPM at OR [facility] Right: Foot HUA : ORTHOPAEDICS [id number] / / Screw Locking 2.7x20mm - [id number] Implanted:Qty: 1 on 01/23/2023 by Ching Patiño DPM at OR [facility] Right: Foot HUA : ORTHOPAEDICS [id number] / / documented as of this encounter Procedures Procedure Name Priority Date/Time Associated Diagnosis Comments URINALYSIS WITH MICROSCOPIC EXAM Routine 05/02/2024 4:24 PM EST DESEAN (acute kidney injury) (HCC) Stage 3b chronic kidney disease (HCC) ALBUMIN / CREATININE RATIO, URINE Routine 05/02/2024 4:24 PM EST DESEAN (acute kidney injury) (HCC) Stage 3b chronic kidney disease (HCC) documented in this encounter Results * URINALYSIS WITH MICROSCOPIC EXAM (05/02/2024 4:24 PM EST) Color, Urine Colorless Colorless, Light Yellow, Yellow, Dark Yellow 05/02/2024 10:35 PM EST LABORATORY C Clarity, Urine Clear Clear 05/02/2024 10:35 PM EST LABORATORY C Glucose, Urine Negative Negative mg/dL 05/02/2024 10:35 PM EST [facility] Bilirubin, Urine Negative Negative 05/02/2024 10:35 PM EST [facility] Ketone, Urine Negative Negative mg/dL 05/02/2024 10:35 PM EST LABORATORY C Specific [place], Urine 1.004 1.003 - 1.030 05/02/2024 10:35 PM EST LABORATORY [facility] Blood, Urine Negative Negative 05/02/2024 10:35 PM EST LABORATORY [facility] pH, Urine 6.0 5.0 - 7.5 Units 05/02/2024 10:35 PM EST LABORATORY [facility] Protein, Urine Negative Negative mg/dL 05/02/2024 10:35 PM EST LABORATORY [facility] Urobilinogen, Urine Normal Normal mg/dL 05/02/2024 10:35 PM EST LABORATORY C Nitrite, Urine Negative Negative 05/02/2024 10:35 PM EST LABORATORY C Esterase, Urine Negative Negative 05/02/2024 10:35 PM EST LABORATORY [facility] RBC, Urine 0-2 0 - 2 /HPF 05/02/2024 10:35 PM EST LABORATORY C WBC, Urine 0-2 0 - 2 /HPF 05/02/2024 10:35 PM EST LABORATORY [facility] Bacteria, Urine 0-25 0 - 25 /HPF 05/02/2024 10:35 PM EST LABORATORY [facility] Urine Non-blood Collection / Unknown 05/02/2024 4:24 PM EST 05/02/2024 4:26 PM EST us Jose R James MD LAB URINE ORDERABLES Final Res ult LABORATORY [facility] [address] [place] [address] * ALBUMIN / CREATININE RATIO, URINE (05/02/2024 4:24 PM EST) Albumin, Random Urine <1.20 mg/dL 05/02/2024 11:15 PM EST LABORATORY [facility] Creatinine, Random Urine 12 mg/dL 05/02/2024 11:15 PM EST LABORATORY [facility] Albumin / Creatinine Ratio, Urine Uninterpretable Albumin/Creatinine ratio due to very low albumin and creatinine values. <30 mg/g Creat 05/02/2024 11:15 PM EST LABORATORY [facility] Urine Urine specimen obtained by clean catch procedure / Unknown Non-blood Collection / Unknown 05/02/2024 4:24 PM EST 05/02/2024 4:26 PM EST Narrative LABORATORY C - 05/02/2024 11:15 PM EST Normal: <30 mg/g creatinine High: 30-300 mg/g creatinine Very High: >300 mg/g creatinine Nephrotic: >2200 mg/g creatinine Jose R James MD LAB URINE ORDERABLES Final Res ult LABORATORY [facility] [address] [place] [address] * CK (05/01/2024 10:40 AM EST) CK 148 39 - 308 U/L 05/02/2024 4:50 PM EST LABORATORY [facility] Blood Venous blood specimen / Unknown Venipuncture / Unknown 05/01/2024 10:40 AM EST 05/01/2024 10:40 AM EST Jose R James MD LAB BLOOD ORDERABLES Final Res ult LABORATORY [facility] [address] [place] [address] documented in this encounter Visit Diagnoses Diagnosis DESEAN (acute kidney injury) (HCC)- Primary Acute kidney failure, unspecified Stage 3b chronic kidney disease (HCC) documented in this encounter Advance Directives * Full Code (Latest Code Status on File) Date Activated Date Inactivated Comments 12/31/2020 10:43 AM 12/31/2020 6:05 PM This order reflects the patients wishes and were consensually agreed upon. Care Teams Customer Engineering Specialist Relationship Specialty Start Date End Date Derrick Granados DO [address] [place] [address] PCP - General Family Medicine 10/01/20 documented as of this encounter"
--- OUTSIDE RECORDS SUMMARY | 2024-07-20 14:34 | External Medical Summary ---
Author Name Unknown Address Unknown Organization [id number]:LABORATORY [facility] [place] - [address] [facility] [place] [address] Laboratory Report Ordering Provider Test Date Status SNEHAL MARTINEZ 05/02/2024 16:24:20 Final Observation Date Value Abnormality Reference (Units ) Status Color of Urine by Auto 05/02/2024 16:24:20 Colorless Colorless, Light Yellow, Yellow, Dark Yellow Final Clarity, Urine 05/02/2024 16:24:20 Clear Clear Final Glucose [Mass/volume] in Urine by Automated test strip 05/02/2024 16:24:20 Negative Negative (mg/dL) Final Bilirubin.total [Presence] in Urine by Automated test strip 05/02/2024 16:24:20 Negative Negative Final Ketones [Mass/volume] in Urine by Automated test strip 05/02/2024 16:24:20 Negative Negative (mg/dL) Final Specific gravity, Urine 05/02/2024 16:24:20 1.004 1.003-1.030 Final Hemoglobin [Presence] in Urine by Automated test strip 05/02/2024 16:24:20 Negative Negative Final pH, Urine 05/02/2024 16:24:20 6.0 5.0-7.5 (Units) Final Protein [Mass/volume] in Urine by Automated test strip 05/02/2024 16:24:20 Negative Negative (mg/dL) Final Urobilinogen [Mass/volume] in Urine by Automated test strip 05/02/2024 16:24:20 Normal Normal (mg/dL) Final Nitrite [Presence] in Urine by Automated test strip 05/02/2024 16:24:20 Negative Negative Final Leukocyte esterase [Presence] in Urine by Automated test strip 05/02/2024 16:24:20 Negative Negative Final RBC, Urine 05/02/2024 16:24:20 0-2 0-2 (/HPF) Final WBC, Urine 05/02/2024 16:24:20 0-2 0-2 (/HPF) Final Bacteria [#/area] in Urine sediment by Microscopy high power field 05/02/2024 16:24:20 0-25 0-25 (/HPF) Final Performing Location LAB[facility]ATORY [facility] [place] - [facility] [address] [facility] [address]
--- OUTSIDE RECORDS SUMMARY | 2024-07-20 14:34 | External Medical Summary ---
Author Name Unknown Address Unknown Organization [id number]:LAB[facility]ATORY [facility] [place] - [address] [place] [address] Laboratory Report Ordering Provider Test Date Status SNEHAL MARTINEZ 05/20/2024 11:58:50 Final Observation Date Value Abnormality Reference (Units ) Status BUN 05/20/2024 11:58:50 15 6-20 (mg/dL) Final Creatinine 05/20/2024 11:58:50 1.4 Above high normal 0.6-1.2 (mg/dL) Final Glomerular filtration rate/1.73 sq M.predicted [Volume Rate/Area] in Serum, Plasma or Blood by Creatinine-based formula (CKD-EPI) 05/20/2024 11:58:50 54 Below low normal >=60 (mL/min) Final eGFR is calculated based on the CKD-EPI 2020 equation. Sodium 05/20/2024 11:58:50 140 135-146 (m mol/L) Final Potassium 05/20/2024 11:58:50 4.1 3.5-5.1 (m mol/L) Final Cl 05/20/2024 11:58:50 104 98-107 (mm ol/L) Final CO2 05/20/2024 11:58:50 24 22-32 (mmo l/L) Final Anion gap 05/20/2024 11:58:50 12 7-15 (mmol /L) Final Glucose 05/20/2024 11:58:50 90 70-120 (mg /dL) Final Calcium 05/20/2024 11:58:50 9.6 8.4-10.2 ( mg/dL) Final Albumin 05/20/2024 11:58:50 4.7 3.8-5.0 (g /dL) Final Phosphate 05/20/2024 11:58:50 3.3 2.5-4.8 (m g/dL) Final Performing Location LABORATORY C - [address] [place] [address]
--- OUTSIDE RECORDS SUMMARY | 2024-07-20 14:34 | External Medical Summary ---
Author Name Unknown Address Unknown Organization [id number]:LABORATORY [facility] [place] [address] - [address] [place] [address] Laboratory Report Ordering Provider Test Date Status SNEHAL MARTINEZ 05/20/2024 11:58:50 Final Observation Date Value Abnormality Reference (Units ) Status Hemoglobin 05/20/2024 11:58:50 13.5 Below low normal 14 .0-16.8 (g/dL) Final Performing Location LABORATORY [facility] [address] - [address] [place] [address]
--- OUTSIDE RECORDS SUMMARY | 2024-07-20 14:34 | External Medical Summary ---
Author Name Unknown Address Unknown Organization [id number]:LABORATORY [facility] - [address] [place] [address] Laboratory Report Ordering Provider Test Date Status RHONA HENRY 05/01/2024 10:40:20 Final Observation Date Value Abnormality Reference (Units ) Status PSA 05/01/2024 10:40:20 1.02 <4.10 (ng/ mL) Final Performing Location LABORATORY [facility] - [address] [place] [address]
--- OUTSIDE RECORDS SUMMARY | 2024-07-20 14:34 | External Medical Summary | Summary of Care ---
Author Name Unknown Organization [facility] Address [address] [place] [address] Phone [phone] Care Team Providers Care Ladle Pourer Name Role Phone Vi Granadosr Dilcia Primary Care Provider Reason for Visit * Reason Comments Outpatient Testing Encounter Details Date Type Department Care Team (Late st Contact Info) Description 05/20/2024 12:10 PM EST Laboratory Laboratory, [facility] 132 [facility] [place] [phone] [facility] [place] [address] DESEAN (acute kidney injury) (HCC); Erectile dysfunction, unspecified erectile dysfunction type; Stage 3b chronic kidney disease (HCC) Allergies No known active allergiesdocumented as of this encounter (statuses as of 05/20/2024) Medications ASPIRIN 81 MG PO TABS Take [...] as of this encounter (statuses as of 05/20/2024) Active Problems Problem Noted Date Diagnosed Date Mood disorder 01/09/2023 YISEL (generalized anxiety disorder) 11/09/2022 Lumbar degenerative disc disease 11/09/2022 Gastroesophageal reflux disease with esophagitis 01/03/2019 Dyslipidemia 03/15/2009 Overview (03/15/2009): Per Lipid Taxonomy. HTN, goal below 130/80 02/18/2009 Overview (02/18/2009): Modified per HTN protocol #16. documented as of this encounter (statuses as of 05/20/2024) Resolved Problems Problem Noted Date Diagnosed Date [...] as of this encounter (statuses as of 05/20/2024) Immunizations Name Administration Dates Next Due COVID-19 mRNA, LNP-s, No Pre serve, 2-Dose Series (Moderna) 07/26/2020,06/28/2020 COVID-19, mRNA, LNP-s, PF, B ooster, 100mcg/0.5mg (Moderna) 07/21/2021,02/11/2021 Pneumococcal Conjugate Vacci ne, 20-valent ([id number]) 05/02/2024 Seasonal Influenza Vac., MDV , IM, [...] PM EDT documented as of this encounter Plan of Treatment Upcoming Encounters Date Type Department Care Team (Late st Contact Info) Description 11/07/2024 9:00 AM EDT Office Visit NephrologyoJey [address] [place] [address] Chitra Chao MD [address] [place] [address] 05/07/2025 8:00 AM EST Office Visit Cardiology, [facility] [address] [place] [address] Janet Carr PA-C [address] [place] [address] [place] [address] 07/03/2025 9:00 AM EDT Office Visit Ophthalmology, David [address] [place] [address] Eliot Guaman DO [address] [place] [address] Pending Results Name Type Priority Associated Diagnoses Date /Time TESTOSTERONE: TOTAL, FREE AND BIOAVAILABLE Lab Routine Erectile dysfunction, unspecified erectile dysfunction type 05/20/2024 11:58 AM EST RENAL FUNCTION PANEL Lab Routine DESEAN (acute kidney injury) (HCC) Stage 3b chronic kidney disease (HCC) 05/20/2024 11:58 AM EST PTH Lab Routine DESEAN (acute kidney injury) (HCC) Stage 3b chronic kidney disease (HCC) 05/20/2024 11:58 AM EST 25-HYDROXY VITAMIN D Lab Routine DESEAN (acute kidney injury) (HCC) Stage 3b chronic kidney disease (HCC) 05/20/2024 11:58 AM EST Scheduled Procedures Name Priority Associated Diagnoses Date/Ti [...] this encounter Medical Devices Implanted Type Area Project Program Manager Device Identifier Shelf Expiration Date Model / Serial / Lot Mesh 3dmax 3.1x5.3in t Med - [id number] Implanted:Qty: 1 on 12/31/2020 by Brendan Landers MD at OR [facility] Left: Groin CR BARD : DAVOL 04/29/2025 [id number] / / [id number] Plt A2 Mtp Cp Rt T8 - [id number] Implanted:Qty: 1 on 01/23/2023 by Ching Patiño DPM at OR [facility] Right: Foot HUA : TRAUMA [id number] / / Screw Lag Cp 3.6x26mm - [id number] Implanted:Qty: 1 on 01/23/2023 by Ching Patiño DPM at OR [facility] Right: Foot HUA : ORTHOPAEDICS [id number] / / Screw Bn T8 Ft St Lk 2.7x16mm - [id number] Implanted:Qty: 2 on 01/23/2023 by Ching Patiño DPM at OR [facility] Right: Foot HUA : ORTHOPAEDICS [id number] / / Screw Cortical 2.7x18mm - [id number] Implanted:Qty: 1 on 01/23/2023 by Ching Patiño DPM at OR [facility] Right: Foot HUA : ORTHOPAEDICS [id number] / / Screw Locking 2.7x20mm - [id number] Implanted:Qty: 1 on 01/23/2023 by Ching Patiño DPM at OR [facility] Right: Foot HUA : ORTHOPAEDICS [id number] / / documented as of this encounter Procedures Procedure Name Priority Date/Time Associated Diagnosis Comments HGB Routine 05/20/2024 11:58 AM EST DESEAN (acute kidney injury) (HCC) Stage 3b chronic kidney disease (HCC) documented in this encounter Results * (ABNORMAL) HGB (05/20/2024 11:58 AM EST) HGB 13.5(L) 14.0 - 16.8 g/dL 05/20/2024 12:24 PM EST LAB[facility]ATORY [facility] 57-10 Blood Venous blood specimen / Unknown Venipuncture / Unknown 05/20/2024 11:58 AM EST 05/20/2024 11:58 AM EST us Jose R James MD LAB BLOOD ORDERABLES Final Res ult LAB[facility]AT[facility] [place] [facility] 57-10 132 [facility] [place] [address] documented in this encounter Visit Diagnoses Diagnosis DESEAN (acute kidney injury) (HCC) Acute kidney failure, unspecified Erectile dysfunction, unspecified erectile dysfunction type Stage 3b chronic kidney disease (HCC) documented in this encounter Advance Directives * Full Code (Latest Code Status on File) Date Activated Date Inactivated Comments 12/31/2020 10:43 AM 12/31/2020 6:05 PM This order reflects the patients wishes and were consensually agreed upon. Care Teams Ladle Pourer Relationship Specialty Start Date End Date Derrick Granados DO 132 [place] [address] PCP - General Family Medicine 10/01/20 documented as of this encounter
--- OUTSIDE RECORDS SUMMARY | 2024-07-20 14:34 | External Medical Summary | Summary of Care ---
Author Name Unknown Organization [facility] Address [address] [place] [facility] [place] [facility] [place] [address] Phone [phone] Care Team Providers Care Metal Furniture Glazier Name Role Phone GranadosDerricksejal DO Primary Care Provider Reason for Visit * Reason Comments Outpatient Testing Encounter Details Date Type Department Care Team (Late st Contact Info) Description 05/01/2024 10:30 AM EST Laboratory Laboratory, [facility] [phone] [facility] 132 [place] [address] HTN, goal below 130/80; Dyslipidemia; Encounter for long-term (current) use of medications; Screening for prostate cancer Allergies No known active allergiesdocumented as of this encounter (statuses as of 05/01/2024) Medications ASPIRIN 81 MG PO TABS Take [...] AT BEDTIME 90 Tablet 1 11/26/2023 Active Ventolin HFA 108 (90 Base) MCG/ACT Inhalation Aerosol SolutionIndicat ions:Viral URI with cough Inhale 2 Puffs by mouth every 4 hours as needed for Wheezing. 18 g 3 12/13/2023 Active Omeprazole 20 MG Oral Capsule Delayed Release (PriLOSEC) TAKE 1 CAPSULE BY MOUTH ONCE DAILY at least 1 hour before first meal 90 Capsule 02/27/2024 Active Escitalopram Oxalate 10 MG Oral Tablet (Lexapro)Indica tions:Anxiety state Take 1 Tablet by mouth in the morning. 30 Tablet 2 04/13/2024 Active documented as of this encounter (statuses as of 05/01/2024) Active Problems Problem Noted Date Diagnosed Date Mood disorder 01/09/2023 YISEL (generalized anxiety disorder) 11/09/2022 Lumbar degenerative disc disease 11/09/2022 Gastroesophageal reflux disease with esophagitis 01/03/2019 Dyslipidemia 03/15/2009 Overview (03/15/2009): Per Lipid Taxonomy. HTN, goal below 130/80 02/18/2009 Overview (02/18/2009): Modified per HTN protocol #16. documented as of this encounter (statuses as of 05/01/2024) Resolved Problems Problem Noted Date Diagnosed Date [...] as of this encounter (statuses as of 05/01/2024) Immunizations Name Administration Dates Next Due COVID-19 [...] 11:00 AM EST Office Visit Family Practice [facility] 132 [facility] [place] [address] Lianne Rivera CRNP 132 [facility] [place] [address] 05/05/2024 8:30 AM EST Office Visit Ophthalmology, David [address] [place] [address] Eliot Guaman DO [address] [place] [address] 05/07/2024 10:00 AM EST Office Visit Cardiology, [facility] [address] [place] [address] Harper Currie CRNP 400 [place] [address] 05/26/2024 4:00 PM EST Office Visit Nephrology, Joey Carey [address] [place] [address] Jose R James MD 200 [facility] [place] [address] Pending Results Name Type Priority Associated Diagnoses Date /Time LIPID PANEL WITH DIRECT LDL IF TG IS HIGH Lab Routine Dyslipidemia 05/01/2024 10:40 AM EST MAGNESIUM Lab Routine Encounter for long-term (current) use of medications 05/01/2024 10:40 AM EST PSA Lab Routine Screening for prostate cancer 05/01/2024 10:40 AM EST Scheduled Procedures Name Priority Associated [...] 2023 02/16/2023, 12/15/2021, 12/09/2020, Additional history exists Albumin/Creatinine Ratio 12/15/2024 022, 02/03/2014, 05/26/2011 GFR 05/01/2025 05/01/2024, 07/2022, 04/20/2022, Additional history exists Colonoscopy 12/06/2026 12/06/2021, 08/2021, [...] this encounter Medical Devices Implanted Type Area Recharger Device Identifier Shelf Expiration Date Model / Serial / Lot Mesh 3dmax 3.1x5.3in t Med - [id number] Implanted:Qty: 1 on 12/31/2020 by Brendan Landers MD at OR [facility] Left: Groin CR BARD : DAVOL 04/29/2025 [id number] / / [id number] Plt A2 Mtp Cp Rt T8 - [id number] Implanted:Qty: 1 on 01/23/2023 by Ching Patiño DPM at OR [facility] Right: Foot HUA : TRAUMA [id number] / / Screw Lag Cp 3.6x26mm - [id number] Implanted:Qty: 1 on 01/23/2023 by Ching Patiño DPM at OR [facility] Right: Foot HUA : ORTHOPAEDICS [id number] / / Screw Bn T8 Ft St Lk 2.7x16mm - [id number] Implanted:Qty: 2 on 01/23/2023 by Ching Patiño DPM at OR [facility] Right: Foot HUA : ORTHOPAEDICS [id number] / / Screw Cortical 2.7x18mm - [id number] Implanted:Qty: 1 on 01/23/2023 by Ching Patiño DPM at OR [facility] Right: Foot HUA : ORTHOPAEDICS [id number] / / Screw Locking 2.7x20mm - [id number] Implanted:Qty: 1 on 01/23/2023 by Ching Patiño DPM at OR [facility] Right: Foot HUA : ORTHOPAEDICS [id number] / / documented as of this encounter Procedures Procedure Name Priority Date/Time Associated Diagnosis Comments COMPREHENSIVE METABOLIC PANEL Routine 05/01/2024 10:40 AM EST HTN, goal below 130/80 CBC Routine 05/01/2024 10:40 AM EST Encounter for long-term (current) use of medications documented in this encounter Results * (ABNORMAL) CBC (05/01/2024 10:40 AM EST) WBC 6.20 4.00 - 10.80 K/uL 05/01/2024 11:04 AM EST [facility]10 RBC 3.96 4.50 - 5.25 M/uL 05/01/2024 11:04 AM EST [facility] [place] [facility] 57-10 HGB 13.3(L) 14.0 - 16.8 g/dL 05/01/2024 11:04 AM EST [facility] 57-10 HCT 39.2(L) 40.0 - 48.4 % 05/01/2024 11:04 AM EST [facility] 57-10 MCV 99.0 82.0 - 99.5 fL 05/01/2024 11:04 AM EST [facility] [place] [facility] 57-10 MCH 33.6 27.0 - 34.0 pg 05/01/2024 11:04 AM EST [facility] [place] [facility] 57-10 MCHC 33.9 32.0 - 36.0 g/dL 05/01/2024 11:04 AM EST [facility] [place] [facility] 57-10 RDW 12.2 11.5 - 15.5 % 05/01/2024 11:04 AM EST [facility] [place] [facility] 57-10 PLT 120(L) 140 - 400 K/uL 05/01/2024 11:04 AM EST [facility] [place] [facility] 57-10 MPV 9.6 6.6 - 11.1 fL 05/01/2024 11:04 AM EST [facility] [place] [facility] 57-10 Blood Venous blood specimen / Unknown Venipuncture / Unknown 05/01/2024 10:40 AM EST 05/01/2024 10:40 AM EST Paz Almonteck [facility] LAB BLOOD ORDERABLES Fin al Result [facility] [place] 57-10 132 [place] [phone] * (ABNORMAL) COMPREHENSIVE METABOLIC PANEL (05/01/2024 10:40 AM EST) BUN 28(H) 6 - 20 mg/dL 05/01/2024 12:10 PM EST [facility] [place] 5710 CREATININE 1.5(H) 0.6 - 1.2 mg/dL 05/01/2024 12:10 PM EST [facility] [place] 5710 EGFR 52(L) >=60 mL/min 05/01/2024 12:10 PM EST [facility] 5710 Comment:eGFR is calculated b ased on the CKD-EPI 2020 equation. SODIUM 136 135 - 146 mmol/L 05/01/2024 12:10 PM EST [facility] [place] 57-10 POTASSIUM 4.5 3.5 - 5.1 mmol/L 05/01/2024 12:10 PM EST [facility] [place] 57-10 CHLORIDE 100 98 - 107 mmol/L 05/01/2024 12:10 PM EST [facility] [place] 57-10 CO2 27 22 - 32 mmol/L 05/01/2024 12:10 PM EST [facility] [place] 57-10 ANION GAP 9 7 - 15 mmol/L 05/01/2024 12:10 PM EST [facility] [place] 57-10 GLUCOSE 89 70 - 120 mg/dL 05/01/2024 12:10 PM EST [facility] 57-10 Albumin 4.4 3.8 - 5.0 g/dL 05/01/2024 12:10 PM EST [facility] [place] 57-10 AST 26 10 - 50 U/L 05/01/2024 12:10 PM EST LAB[facility] 57-10 Alkaline Phosphatase 49 35 - 130 U/L 05/01/2024 12:10 PM EST [facility] [place] 57-10 Bilirubin, Total 0.7 <=1.2 mg/dL 05/01/2024 12:10 PM EST [facility] 57-10 CALCIUM 9.0 8.4 - 10.2 mg/dL 05/01/2024 12:10 PM EST [facility] 57-10 Protein 6.3 6.0 - 8.3 g/dL 05/01/2024 12:10 PM EST [facility] [place] [facility] 57-10 ALT 22 10 - 50 U/L 05/01/2024 12:10 PM EST [facility] [place] [facility] 57-10 Blood Venous blood specimen / Unknown Venipuncture / Unknown 05/01/2024 10:40 AM EST 05/01/2024 10:40 AM EST Paz Bryant [facility] LAB BLOOD ORDERABLES Fin al Result [facility]AT[facility] 57-10 [address] [place] [address] documented in this encounter Visit Diagnoses Diagnosis HTN, goal below 130/80 Unspecified essential hypertension Dyslipidemia Other and unspecified hyperlipidemia Encounter for long-term (current) use of medications Encounter for long-term (current) use of other medications Screening for prostate cancer Special screening for malignant neoplasm of prostate documented in this encounter Advance Directives * Full Code (Latest Code Status on File) Date Activated Date Inactivated Comments 12/31/2020 10:43 AM 12/31/2020 6:05 PM This order reflects the patients wishes and were consensually agreed upon. Care Teams Metal Furniture Glazier Relationship Specialty Start Date End Date Derrick Granados DO 132 [place] [address] PCP - General Family Medicine 10/01/20 documented as of this encounter
--- OUTSIDE RECORDS SUMMARY | 2024-07-20 14:35 | External Medical Summary | Summary of Care ---
Author Name Unknown Organization [facility] Address [address] [facility] [place] [address] Phone [phone] Care Team Providers Care Manager Of Product Name Role Phone Elaine Granados DO Primary Care Provider Reason for Visit * Reason Comments eRx-Medication Refill Encounter Details Date Type Department Care Team (Late st Contact Info) Description 01/20/2024 Refill Family Practice [facility] [address] [place] [address] Elaine Granados DO [address] [place] [address] Anxiety state Allergies No known active allergiesdocumented as of this encounter (statuses as of 01/23/2024) Medications Medication Sig Dispensed Refills Start Date End Date Status ASPIRIN 81 MG PO TABS Take by mouth 2 times a day. Active cholecalciferol, VIT D3, (VITAMIN D3) 1000 UNITS Tablet Take 1 Tablet by mouth in the morning. 12/13/2015 Active Ventolin HFA 108 (90 Base) MCG/ACT Inhalation Aerosol Solution Inhale by mouth 2 Puffs every 4 hours as needed for Wheezing. 18 g 06/03/2021 Active Eye Drops 0.012-0.2 % Ophthalmic Solution (Naphazoline-Poly ethyl Glycol) Instill 1 Drop into both eyes [...] MG Oral Tablet Extended Release 12 Hour (Mucinex)Indicati ons:Protracted URI Take 1 Tablet by mouth 2 times a day as needed for Congestion. Take with plenty of water. Do not cut, crush or chew 40 Tablet 2 01/30/2023 Active busPIRone HCl 10 MG Oral Tablet (Buspar)Indicatio ns:Mood disorder (HCC) Take 1 Tablet by mouth in the morning and 1 Tablet before bedtime. 180 Tablet 3 06/07/2023 Active Losartan Potassium 50 MG Oral Tablet (Cozaar)Indicatio ns:HTN, goal below 130/80 Take 1 Tablet by mouth in the morning. 90 Tablet 3 06/07/2023 Active Rosuvastatin Calcium 40 MG Oral Tablet (Crestor) Take 1 Tablet by mouth at bedtime. 90 Tablet 3 06/07/2023 Active Terazosin HCl 1 MG Oral Capsule (Hytrin)Indicatio ns:HTN, goal below 130/80 Take 1 Capsule by [...] 1 hour before first meal 90 Capsule 1 09/01/2023 Active traZODone HCl 100 MG Oral Tablet (Desyrel) TAKE 1 TABLET BY MOUTH AT BEDTIME 90 Tablet 1 11/26/2023 Active Ventolin HFA 108 (90 Base) MCG/ACT Inhalation Aerosol SolutionIndicatio ns:Viral URI with cough Inhale 2 Puffs by mouth every 4 hours as needed for Wheezing. 18 g 3 12/13/2023 Active Escitalopram Oxalate 10 MG Oral Tablet (Lexapro)Indicati ons:Anxiety state Take 1 Tablet by mouth in the morning. 30 Tablet 2 01/22/2024 Active Escitalopram Oxalate 10 MG Oral Tablet (Lexapro)Indicati ons:Anxiety state Take 1 Tablet by mouth in the morning. 30 Tablet 3 09/28/2023 01/22/2024 Discontinued documented as of this encounter (statuses as of 01/23/2024) Active Problems Problem Noted Date Diagnosed Date Mood disorder 01/09/2023 YISEL (generalized anxiety disorder) 11/09/2022 Lumbar degenerative disc disease 11/09/2022 Gastroesophageal reflux disease with esophagitis 01/03/2019 Dyslipidemia 03/15/2009 Overview: Per Lipid Taxonomy. HTN, goal below 130/80 02/18/2009 Overview: Modified per HTN protocol #16. documented as of this encounter (statuses as of 01/23/2024) Resolved Problems Problem Noted Date Diagnosed Date Resolved Date Thrombocytopenia 12/15/2021 12/15/2021 Trigger finger of right thumb 06/02/2020 11/09/2022 Carpal tunnel syndrome, bilateral 01/30/2020 11/09/2022 Mood disorder 01/03/2019 11/09/2022 Corneal scar 06/03/2012 11/09/2022 Swelling of right testicle 03/01/2012 0 05/17/2012 Herpes simplex keratitis 10/01/2007 HTN, goal to be determined 05/09/2007 1 04/20/2008 Overview: Modified per HTN protocol #16. Dyslipidemia, goal LDL below 160 05/09/2007 03/15/2009 Overview: Per Lipid Taxonomy. documented as of this encounter (statuses as of 01/23/2024) Immunizations Name Administration Dates Next Due COVID-19 [...] Assigned at Male 11/09/2022 2:08 PM EDT Gender Identity Male 11/09/2022 2:08 PM EDT Sexual Orientation Straight 11/09/2022 2: 08 PM EDT Job Start Date Occupation Industry Not on file Not on file Not on file documented as of this encounter Miscellaneous Notes * Telephone Encounter - Wood Velázquez - 01/23/2024 3:02 PM EDT Received message from [facility] regarding patient needing an appointment. Patient was notified. Successfully contacted patient and provided [facility] message. * Telephone Encounter - Paz Bryant RP - 01/22/2024 6:11 AM EDTSigned Prescriptions: Disp Refills Escitalopram Oxalate 10 MG Oral Tablet (Le*30 Tab*2 Sig: Take 1 Tablet by mouth in the morning. Authorizing Provider: ELAINE GRANADOS Ordering User: PAZ BRYANT * Telephone Encounter - Paz Bryant RP - 01/22/2024 6:10 AM EDT Please contact patient so that an appointment can be scheduled with his PRIMARY CARE provider. Refill authorized to hold patient over in the mean time. Last Visit: 01/09/2023 (in office), 06/03/2021 (telemedicine) Next Visit: Visit date not found Thank you, Paz Bryant, PharmD. Clinical Pharmacist [facility] 01/22/2024, 6:10 AM * Telephone Encounter - John [facility] Maritza Inbound - 01/22/2024 6:02 AM EDT Pending Prescriptions: Disp Refills Escitalopram Oxalate 10 MG Oral Tablet [Ph*30 Tab*0 Sig: Take 1Tablet by mouth in the morning. documented in this encounter Plan of Treatment Upcoming Encounters Date Type Department Care Team (Late st Contact Info) Description 02/07/2024 8:30 AM EST Office Visit Ophthalmology, [facility] 132 [facility] [place] [address] Eloit Guaman, 21 [facility] [place] [address] Scheduled Procedures Name Priority Associated Diagnoses Date/Ti me COLONOSCOPY FLEXIBLE PROXIMA L DIAGNOSTIC Recall Encounter for screening colonoscopy Health Maintenance Due Date Last Done Comments Cologuard 2005 Fecal Occult Blood Test 2005 Sigmoidoscopy 2005 Depression Screening 03/01/2022 03/01/2021 COVID-19 Vaccine ( season) 2023 07/21/2021, 02/11/2021, 07/26/2020, Additional history exists Influenza Vaccine (FLU shot) (#1) 2023 02/16/2023, 12/15/2021, 12/09/2020, Additional history exists GFR 03/06/2024 03/06/2023, 04/02, 03/18/2021, Additional history exists Albumin/Creatinine Ratio 12/15/2024 022, 02/03/2014, 05/26/2011 Colonoscopy 12/06/2026 12/06/2021, 08/2021, 12/30/2015, Additional history [...] on patient's age to complete this topic Pneumococcal Vaccine: Pediatrics (0 to 5 Years) and At-Risk Patients (6 to 64 Years) Aged Out No longer eligible based on patient's age to complete this topic documented as of this encounter Medical Devices Implanted Type Area Yardage Tufting Machine Operator Device Identifier Shelf Expiration Date Model / Serial / Lot Mesh 3dmax 3.1x5.3in Lft Med - [id number] Implanted:Qty: 1 on 12/31/2020 by Brendan Landers MD at OR [facility] Left: Groin CR BARD : DAVOL 04/29/2025 [id number] / / [id number] Plt A2 Mtp Cp Rt T8 - [id number] Implanted:Qty: 1 on 01/23/2023 by Ching Patiño DPM at OR [facility] Right: Foot HUA : TRAUMA [id number] / / Screw Lag Cp 3.6x26mm - [id number] Implanted:Qty: 1 on 01/23/2023 by Ching Patiño DPM at OR [facility] Right: Foot HUA : ORTHOPAEDICS [id number] / / Screw Bn T8 Ft St Lk 2.7x16mm - [id number] Implanted:Qty: 2 on 01/23/2023 by Ching Paitño DPM at OR [facility] Right: Foot HUA : ORTHOPAEDICS [id number] / / Screw Cortical 2.7x18mm - [id number] Implanted:Qty: 1 on 01/23/2023 by Ching Patiño DPM at OR [facility] Right: Foot HUA : ORTHOPAEDICS [id number] / / Screw Locking 2.7x20mm - [id number] Implanted:Qty: 1 on 01/23/2023 by Ching Patiño DPM at OR [facility] Right: Foot HUA : ORTHOPAEDICS [id number] / / documented as of this encounter Visit Diagnoses Diagnosis Anxiety state Anxiety state, unspecified documented in this encounter Advance Directives * Full Code (Latest Code Status on File) Date Activated Date Inactivated Comments 12/31/2020 10:43 AM 12/31/2020 6:05 PM This order reflects the patients wishes and were consensually agreed upon. Care Teams Manager Of Product Relationship Specialty Start Date End Date Elaine Granados DO 132 [facility] [place] [address] PCP - General Family Medicine 10/01/20 documented as of this encounter
--- OUTSIDE RECORDS SUMMARY | 2024-07-20 14:35 | External Medical Summary | Summary of Care ---
Author Name Unknown Organization [facility] Address [address] [facility] [place] [address] Phone [phone] Care Team Providers Care Press And Blow Machine Tender Name Role Phone Derrick Granadossejal DO Primary Care Provider Encounter Details Date Type Department Care Team (Late st Contact Info) Description 03/01/2024 Orders Only PATIENT PORTAL DO NOT DELETE THIS DEPT USED BY [place] [phone] Allergies No known active allergiesdocumented as of this encounter (statuses as of 03/01/2024) Medications ASPIRIN 81 MG PO TABS Take [...] the morning. 30 Tablet 2 01/22/2024 Active Omeprazole 20 MG Oral Capsule Delayed Release (PriLOSEC) TAKE 1 CAPSULE BY MOUTH ONCE DAILY at least 1 hour before first meal 90 Capsule 02/27/2024 Active documented as of this encounter (statuses as of 03/01/2024) Active Problems Problem Noted Date Diagnosed Date Mood disorder 01/09/2023 YISEL (generalized anxiety disorder) 11/09/2022 Lumbar degenerative disc disease 11/09/2022 Gastroesophageal reflux disease with esophagitis 01/03/2019 Dyslipidemia 03/15/2009 Overview (03/15/2009): Per Lipid Taxonomy. HTN, goal below 130/80 02/18/2009 Overview (02/18/2009): Modified per HTN protocol #16. documented as of this encounter (statuses as of 03/01/2024) Resolved Problems Problem Noted Date Diagnosed Date [...] as of this encounter (statuses as of 03/01/2024) Immunizations Name Administration Dates Next Due COVID-19 [...] as of this encounter Plan of Treatment Scheduled Procedures [...] this encounter Medical Devices Implanted Type Area Bench Worker Binding Device Identifier Shelf Expiration Date Model / Serial / Lot Mesh 3dmax 3.1x5.3in t Med - [id number] Implanted:Qty: 1 on 12/31/2020 by Brendan Landers MD at OR [facility] Left: Groin CR BARD : DAVOL 04/29/2025 [id number] / / [id number] Plt A2 Mtp Cp Rt T8 - [id number] Implanted:Qty: 1 on 01/23/2023 by Ching Patiño DPM at OR [facility] Right: Foot HUA : TRAUMA [id number] / / Screw Lag Cp 3.6x26mm - [id number] Implanted:Qty: 1 on 01/23/2023 by Ching Patiño DPM at OR [facility] Right: Foot HUA : ORTH[employer] [id number] / / Screw Bn T8 Ft St Lk 2.7x16mm - [id number] Implanted:Qty: 2 on 01/23/2023 by Ching Patiño DPM at [facility] Right: Foot HUA : ORTH[employer] [id number] / / Screw Cortical 2.7x18mm - [id number] Implanted:Qty: 1 on 01/23/2023 by Ching Patiño DPM at [facility] Right: Foot HUA : ORTH[employer] [id number] / / Screw Locking 2.7x20mm - [id number] Implanted:Qty: 1 on 01/23/2023 by Ching Patiño DPM at [facility] Right: Foot HUA : ORTHOP[employer] [id number] / / documented as of this encounter Advance Directives * Full Code (Latest Code Status on File) Date Activated Date Inactivated Comments 12/31/2020 10:43 AM 12/31/2020 6:05 PM This order reflects the patients wishes and were consensually agreed upon. Care Teams Press And Blow Machine Tender Relationship Specialty Start Date End Date Derrick Granados DO [address] [place] [address] PCP - General Family Medicine 10/01/20 documented as of this encounter
--- OUTSIDE RECORDS SUMMARY | 2024-07-20 14:35 | External Medical Summary | Summary of Care ---
Author Name Unknown Organization [facility] Address [address] [facility] [place] [address] Phone [phone] Care Team Providers Care Pest Control Worker Name Role Phone Derrick Granados DO Primary Care Provider Reason for Visit * Reason Onset Date Comments Medication Refill 03/18/2024 Encounter Details Date Type Department Care Team (Late st Contact Info) Description 03/18/2024 Refill Family Practice [facility] [address] [place] [phone] Derrick Granados DO [address] [place] [id number] Mood disorder (HCC) Allergies No known active allergiesdocumented as of this encounter (statuses as of 03/19/2024) Medications ASPIRIN 81 MG PO TABS Take [...] as of this encounter (statuses as of 03/19/2024) Active Problems Problem Noted Date Diagnosed Date Mood disorder 01/09/2023 YISEL (generalized anxiety disorder) 11/09/2022 Lumbar degenerative disc disease 11/09/2022 Gastroesophageal reflux disease with esophagitis 01/03/2019 Dyslipidemia 03/15/2009 Overview (03/15/2009): Per Lipid Taxonomy. HTN, goal below 130/80 02/18/2009 Overview (02/18/2009): Modified per HTN protocol #16. documented as of this encounter (statuses as of 03/19/2024) Resolved Problems Problem Noted Date Diagnosed Date [...] as of this encounter (statuses as of 03/19/2024) Immunizations Name Administration Dates Next Due COVID-19 [...] 18 years and over) Not on file 3 Are you (or your family) brenna eless [...] encounter Miscellaneous Notes * Telephone Encounter - Taniya Bustamante RP - 03/19/2024 2:58 PM ESTRefused Prescriptions: Disp Refills busPIRone HCl 10 MG Oral Tablet (Buspar) 180 Ta*3 Sig: Take 1 Tablet by mouth in the morning and 1 Tablet before bedtime.Refused By: TANIYA BUSTAMANTE for Refusal: Too soon documented in this encounter Plan of Treatment [...] this encounter Medical Devices Implanted Type Area Delicate Fabrics Presser Device Identifier Shelf Expiration Date Model / Serial / Lot Mesh 3dmax 3.1x5.3in Lft Med - [id number] Implanted:Qty: 1 on 12/31/2020 by Brendan Landers MD at [facility] Left: Groin CR BARD : DAVOL 04/29/2025 [id number] / / [id number] Plt A2 Mtp Cp Rt T8 - [id number] Implanted:Qty: 1 on 01/23/2023 by Ching Patiño DPM at [facility] Right: Foot HUA : TRAUMA [id number] / / Screw Lag Cp 3.6x26mm - [id number] Implanted:Qty: 1 on 01/23/2023 by Ching Patiño DPM at [facility] Right: Foot HUA : ORTH[employer] [id number] / / Screw Bn T8 Ft St Lk 2.7x16mm - [id number] Implanted:Qty: 2 on 01/23/2023 by Ching Patiño DPM at [facility] Right: Foot HUA : ORTH[employer] [id number] / / Screw Cortical 2.7x18mm - [id number] Implanted:Qty: 1 on 01/23/2023 by Ching Patiño DPM at [facility] Right: Foot HUA : OR[employer] [id number] / / Screw Locking 2.7x20mm - [id number] Implanted:Qty: 1 on 01/23/2023 by Ching Patiño DPM at [facility] Right: Foot HUA : ORTHOPA[employer]ICS [id number] / / documented as of this encounter Visit Diagnoses Diagnosis Mood disorder (HCC) Unspecified episodic mood disorder documented in this encounter Advance Directives * Full Code (Latest Code Status on File) Date Activated Date Inactivated Comments 12/31/2020 10:43 AM 12/31/2020 6:05 PM This order reflects the patients wishes and were consensually agreed upon. Care Teams Pest Control Worker Relationship Specialty Start Date End Date Derrick Granados DO [address] [facility] [place] [address] PCP - General Family Medicine 10/01/20 documented as of this encounter
--- OUTSIDE RECORDS SUMMARY | 2024-07-20 14:35 | External Medical Summary | Summary of Care ---
Author Name Unknown Organization [facility] Address [address] [facility] [place] [address] Phone [phone] Care Team Providers Care Director Of Photography Name Role Phone Elaine Granados DO Primary Care Provider Reason for Visit * Reason Comments eRx-Medication Refill Encounter Details Date Type Department Care Team (Late st Contact Info) Description 02/26/2024 Refill Family Practice [facility] [address] [place] [address] Elaine Granados DO [address] [place] [phone] Dyslipidemia*; HTN, goal below 130/80; Encounter for long-term (current) use of medications Allergies No known active allergiesdocumented as of this encounter (statuses as of 02/29/2024) Medications ASPIRIN 81 MG PO TABS Take [...] for Wheezing. 18 g 3 4 Active Escitalopram Oxalate 10 MG Oral Tablet (Lexapro)Indic ations:Anxiety state Take 1 Tablet by mouth in the morning. 30 Tablet 2 4 Active Omeprazole 20 MG Oral Capsule Delayed Release (PriLOSEC) TAKE 1 CAPSULE BY MOUTH ONCE DAILY at least 1 hour before first meal 90 Capsule 4 Active Omeprazole 20 MG Oral Capsule Delayed Release (PriLOSEC) TAKE 1 CAPSULE BY MOUTH ONCE DAILY at least 1 hour before first meal 90 Capsule 1 4 02/27/20 24 Discontinued documented as of this encounter (statuses as of 02/29/2024) Active Problems Problem Noted Date Diagnosed Date Mood disorder 01/09/2023 YISEL (generalized anxiety disorder) 11/09/2022 Lumbar degenerative disc disease 11/09/2022 Gastroesophageal reflux disease with esophagitis 01/03/2019 Dyslipidemia 03/15/2009 Overview (03/15/2009): Per Lipid Taxonomy. HTN, goal below 130/80 02/18/2009 Overview (02/18/2009): Modified per HTN protocol #16. documented as of this encounter (statuses as of 02/29/2024) Resolved Problems Problem Noted Date Diagnosed Date [...] as of this encounter (statuses as of 02/29/2024) Immunizations Name Administration Dates Next Due COVID-19 [...] 12/26/2022 Does the household have a re lar [...] * Telephone Encounter - Wood Velázquez - 02/29/2024 9:11 PM EST Received message from [facility] regarding patient needing an appointment and labs. Patient was notified. Successfully contacted patient and provided [facility] message. * Telephone Encounter - Paz Bryant [facility] - 02/27/2024 8:12 AM ESTSigned Prescriptions: Disp Refills Omeprazole 20 MG Oral Capsule Delayed Rele*90 Cap*0 Sig: TAKE 1 CAPSULE BY MOUTH ONCE DAILY at least 1 hour before first meal Authorizing Provider: ELAINE GRANADOS Ordering User: PAZ BRYANT * Telephone Encounter - Paz Bryant RPh - 02/27/2024 8:10 AM EST Provided 90 days supply with 0 refill. Per refill protocol patient should have routine on file within past year. Reviewed AMP report, Care Gaps/Health Maintenance, medications list, and for any routine labs typically ordered for this patient. Lab orders placed. Please contact patient to schedule office visit with PRIMARY CARE and advise of labs ordered for blood draw. Recommend patient to fast if able for labs. Patient may still have water and regular medications. Advise to obtain labs before requesting the next refill. Last Visit: 01/09/2023 (in office), 06/03/2021 (telemedicine) Next Visit: Visit date not found Thank you, Paz Bryant, PharmD. Clinical Pharmacist [facility] 02/27/2024, 8:11 AM documented in this encounter Plan of Treatment Scheduled Orders Name Type Priority Associated Diagnoses Orde r Schedule COMPREHENSIVE METABOLIC PANEL Lab Routine HTN, goal below 130/80 Expected: 02/27/2024 (Approximate), Expires: 02/26/2025 LIPID PANEL WITH DIRECT LDL IF TG IS HIGH Lab Routine Dyslipidemia Expected: 02/27/2024 (Approximate), Expires: 02/26/2025 CBC Lab Routine Encounter for long-term (current) use of medications Expected: 02/27/2024 (Approximate), Expires: 02/26/2025 MAGNESIUM Lab Routine Encounter for long-term (current) use of medications Expected: 02/27/2024 (Approximate), Expires: 02/26/2025 Scheduled Procedures Name Priority Associated Diagnoses Date/Ti [...] this encounter Medical Devices Implanted Type Area Cans Vacuum Tester Device Identifier Shelf Expiration Date Model / Serial / Lot Mesh 3dmax 3.1x5.3in t Med - [id number] Implanted:Qty: 1 on 12/31/2020 by Brendan Landers MD at OR [facility] Left: Groin CR BARD : DAVOL 04/29/2025 [id number] / / [id number] Plt A2 Mtp Cp Rt T8 - [id number] Implanted:Qty: 1 on 01/23/2023 by Ching Patiño DPM at OR [facility] Right: Foot HUA : TRAUMA [id number] / / Screw Lag Cp 3.6x26mm - [id number] Implanted:Qty: 1 on 01/23/2023 by Ching Patiño DPM at OR [facility] Right: Foot HUA : ORTHOPA[employer]ICS [id number] / / Screw Bn T8 Ft St Lk 2.7x16mm - [id number] Implanted:Qty: 2 on 01/23/2023 by Ching Patiño DPM at OR [facility] Right: Foot HUA : ORTHOPA[employer]ICS [id number] / / Screw Cortical 2.7x18mm - [id number] Implanted:Qty: 1 on 01/23/2023 by Ching Patiño DPM at OR [facility] Right: Foot HUA : ORTHOPAEDICS [id number] / / Screw Locking 2.7x20mm - [id number] Implanted:Qty: 1 on 01/23/2023 by Ching Patiño DPM at OR [facility] Right: Foot HUA : ORTHOPAEDICS [id number] / / documented as of this encounter Visit Diagnoses Diagnosis Dyslipidemia- Primary Other and unspecified hyperlipidemia HTN, goal below 130/80 Unspecified essential hypertension Encounter for long-term (current) use of medications Encounter for long-term (current) use of other medications documented in this encounter Advance Directives * Full Code (Latest Code Status on File) Date Activated Date Inactivated Comments 12/31/2020 10:43 AM 12/31/2020 6:05 PM This order reflects the patients wishes and were consensually agreed upon. Care Teams Director Of Photography Relationship Specialty Start Date End Date Elaine Granados DO [address] [place] [address] PCP - General Family Medicine 10/01/20 documented as of this encounter
--- NOTE | 2024-07-20 14:42 | Emergency Department Note ---
Impression & Plan Brain TIA ED Provider Note Provider: Tha Yao MD CHIEF COMPLAINT: Transient neurosymptoms HISTORY OF PRESENT ILLNESS: Patient is a 64-year-old gentleman history of GERD and testicular cancer presenting here today reporting sudden onset of symptoms approximately an hour ago with some clenching of the left hand and the numbness of the right hand leg. Was associated with some difficulty speaking and garbled speech by his report. Symptoms lasted 15 to 20 minutes and then entirely resolved he feels back at baseline now. No history of similar. Does report a little bit away lines in his vision earlier. States that the child gets migraines and did take 1200 mg of ibuprofen just a little bit ago. Denies any headache today or now. Denies any significant chest pain or palpitations. No current numbness or weakness. No history of similar again and not on aspirin or other blood thinners. PAST MEDICAL HISTORY: As noted above MEDICATIONS: Reviewed home medications SOCIAL HISTORY: PHYSICAL EXAM: GENERAL: alert and oriented in no acute distress on stretcher Head: normocephalic and atraumatic EYES: No injection, discharge or icterus. PERRL, EOMI. NECK: Trachea midline. Supple. ENT: Mucous membranes pink and moist. LUNGS: Airway patent. No retractions or tachypnea HEART: Regular rate and rhythm. No chest wall tenderness ABDOMEN: Soft and non-tender, without guarding or rebound. SKIN: Acyanotic, warm, dry, without rashes EXTREMITIES: Without swelling, tenderness or deformity NEUROLOGICAL: No focal deficits. No aphasia. No facial droop or slurred speech. Normal strength and tone in the extremities. Sensation to gross touch normal. Ambulatory. EK bpm. Normal sinus rhythm with sinus arrhythmia. No PVC or PAC. No acute ST segment elevation or depression with QTc of 428. CONTINUOUS CARDIAC MONITORING: was ordered and showed a heart rate of 60s to 70s bpm in normal sinus rhythm occasional sinus arrhythmia Patient's laboratory studies and imaging reviewed. Differential includes Infection, dehydration, metabolic abnormality, hypo/hyperglycemia, electrolyte disturbance, anemia, hypoxia, cardiac sources, intracerebral event, toxicologic, neurologic, as well as other pathologies. IMPRESSION/MEDICAL DECISION MAKING: Patient back to baseline now without significant neurological deficits. Does report maybe a little bit of wavy lines in the vision earlier but no visual issues now. Some planting in the left hand and some numbness of the right side that is now resolved after about 15 or 20-minute time period. No LOC or loss of consciousness reported. No seizure-like activity reported. Will complete CT and CT angiogram of the head and neck to look for any acute cranial abnormality or major vascular abnormality. Basic blood work obtained but denies other infectious symptoms. Question if this could be TIA/CVA versus seizure versus other process. Blood work here without significant anemia or leukocytosis. Mild hyponatremia of 131. No significant renal dysfunction. Very slightly abnormal LTF's but not severely out of range and doubt hepatitis. Negative urinalysis for signs of infection or blood. Troponin completed as well. CT imaging of the head and CT angiograms per report show no significant vascular abnormality or intracranial hemorrhage. Again reassessed the patient discussed with the findings which are generally reassuring. Cannot entirely exclude complex migraine but does not have a real close history of this and the speech issues that he reports earlier are somewhat concerning for TIA given resolution of symptoms at this time. Possible but lower suspicion for seizure. Discussed with him recommend we monitor him further and proceed with further TIA/neurological evaluation with observation in the hospital overnight. Hospitalist team consulted. Given a dose of aspirin and Pepcid. DIAGNOSIS: TIA DISPOSITION: Hospitalist will evaluate Patient was agreeable with this plan. Past Med/Surg History Problem List (Updated 07/20/24 @ 17:58 by Manasa Sellers PA-C) Brain TIA (Acute) Medical History (Updated 07/20/24 @ 17:58 by Manasa Sellers PA-C) Essential hypertension CKD (chronic kidney disease) stage 2, GFR 60-89 ml/min Lumbar degenerative disc disease YISEL (generalized anxiety disorder) Dyslipidemia H/O testicular cancer History of hydrocele Herpes simplex keratitis of right eye GERD (gastroesophageal reflux disease) Surgical History History of carpal tunnel surgery S/P trigger finger release History of foot surgery H/O inguinal hernia repair S/P tonsillectomy S/P appy Family History (Updated 07/20/24 @ 16:38 by Manasa Sellers PA-C) Other Cancer Social History Smoking Status: Never smoker Preferred Language: Latvian Feels Safe at Home: Yes Allergies Allergies Allergy/AdvReac Type Severity Reaction Status Date / Time No Known Allergies Allergy Verified 07/20/24 16:27 Home Meds Home Medications Medication Instructions Recorded Confirmed B-complex with vitamin C 1 tab PO BID 07/20/24 07/20/24 albuterol sulfate 90 mcg/actuation 2 puff inhalation Q4H PRN Wheezing 07/20/24 07/20/24 aerosol inhaler (Ventolin HFA) ascorbic acid (vitamin C) 500 mg 500 mg PO DAILY 07/20/24 07/20/24 tablet (Vitamin C) aspirin 81 mg tablet,delayed 81 mg PO BID 07/20/24 07/20/24 release buspirone 10 mg tablet 10 mg PO BID 07/20/24 07/20/24 carvedilol 6.25 mg tablet 6.25 mg PO BID 07/20/24 07/20/24 cholecalciferol (vitamin D3) 25 25 mcg PO DAILY 07/20/24 07/20/24 mcg (1,000 unit) capsule (Vitamin D3) escitalopram oxalate 10 mg tablet 10 mg PO DAILY 07/20/24 07/20/24 (Lexapro) ferrous sulfate 142 mg (45 mg 142 mg PO BID 07/20/24 07/20/24 iron) tablet,extended release guaifenesin 600 mg tablet, 600 mg PO BID PRN Congestion 07/20/24 07/20/24 extended release 12 hr (Mucinex) losartan 50 mg tablet 50 mg PO DAILY 07/20/24 07/20/24 magnesium 250 mg tablet 250 mg PO BID 07/20/24 07/20/24 naphazoline 0.012 %-glycerin 0.2 % 1 drp OPB DIRECTED PRN NEEDED 07/20/24 07/20/24 eye drops omeprazole 20 mg capsule,delayed 20 mg PO DAILYBB 07/20/24 07/20/24 release potassium gluconate 600 mg (99 mg) 600 mg PO DAILY 07/20/24 07/20/24 tablet rosuvastatin 40 mg tablet 40 mg PO HS 07/20/24 07/20/24 tadalafil 5 mg tablet 5 mg PO DAILY PRN Sexual Activity 07/20/24 07/20/24 terazosin 1 mg capsule 1 mg PO HS 07/20/24 07/20/24 trazodone 100 mg tablet 100 mg PO HS 07/20/24 07/20/24 valacyclovir 500 mg tablet 500 mg PO BID 07/20/24 07/20/24 vitamin E (dl, acetate) 45 mg (100 45 mg PO BID 07/20/24 07/20/24 unit) capsule Results & Data (ED) Vital Signs Vital Signs - 24 hr 07/20/24 14:40 07/20/24 14:45 07/20/24 15:16 Temperature 36.7 C Temperature Source Oral Pulse Rate 75 74 Pulse Rate [Right Finger] 66 Pulse Rhythm Regular Pulse Strength Normal Respiratory Rate 18 18 Respiratory Effort / Characteristics Non-Labored Spontaneous Non-Labored Respiratory Depth Normal Normal Respiratory Pattern Regular Blood Pressure 175/106 H Blood Pressure [Right Arm] 167/92 H Blood Pressure Mean 129 Blood Pressure Mean [Right Arm] 117 Blood Pressure Position Sitting Pulse Oximetry 96 95 Oxygen Delivery Method Room Air Room Air Sepsis Recent Fever Within 48 Hours No Sepsis New/Unexplained Change in Mental Status No Sepsis Action Taken by Nursing No Action Required 07/20/24 16:17 07/20/24 17:17 Temperature Temperature Source Pulse Rate Pulse Rate [Right Finger] 72 65 Pulse Rhythm Pulse Strength Respiratory Rate 18 18 Respiratory Effort / Characteristics Non-Labored Non-Labored Respiratory Depth Normal Normal Respiratory Pattern Blood Pressure Blood Pressure [Right Arm] 146/82 H 139/90 Blood Pressure Mean Blood Pressure Mean [Right Arm] 103 106 Blood Pressure Position Pulse Oximetry 95 95 Oxygen Delivery Method Room Air Room Air Sepsis Recent Fever Within 48 Hours Sepsis New/Unexplained Change in Mental Status Sepsis Action Taken by Nursing Laboratory Data 07/20/24 14:46 07/20/24 14:46 Lab Results 07/20/24 07/20/24 07/20/24 Range/Units 14:44 14:46 15:12 WBC 6.26 (4.8-10.8) K/ul RBC 4.08 L (4.70-6.10) M/uL Hgb 13.6 L (14.0-18.0) g/dl POC Hgb 14.3 (14.0-18.0) g/dl Hct 38.7 L (42.0-52.0) % POC Hct 42 (42-52) % MCV 94.9 (80.0-100.0) fL MCH 33.3 (25.0-34.0) pg MCHC 35.1 (32.0-36.0) g/dL RDW Std Deviation 49.6 H (36.4-46.3) fL RDW Coeff of Shanel 14.2 (11.5-14.5) % Plt Count 108 L (130-400) K/uL MPV 9.4 (9.4-12.4) fL Immature Gran % (Auto) 0.2 % Neut % (Auto) 68.4 % Lymph % (Auto) 20.8 % Anson % (Auto) 9.1 % Eos % (Auto) 1.0 % Baso % (Auto) 0.5 % Neut # (Auto) 4.29 (1.40-6.50) K/uL Lymph # (Auto) 1.30 (1.20-3.40) K/uL Anson # (Auto) 0.57 (0.11-0.59) K/uL Eos # (Auto) 0.06 (0.00-0.50) K/uL Baso # (Auto) 0.03 (0.00-0.20) K/uL Immature Gran # (Auto) 0.01 (0.01-0.20) K/uL PT 11.1 (9.0-12.0) Seconds INR 1.0 (0.9-1.1) APTT 25 (21-31) Seconds PTT Ratio 0.9 POC Sodium 130 L (135-144) mmol/L Sodium 131 L (136-145) mmol/L POC Potassium 3.9 (3.3-5.0) mmol/L Potassium 3.9 (3.5-5.1) mmol/L POC Chloride 97 L (101-112) mmol/L Chloride 96 L (98-107) mmol/L Carbon Dioxide 27 (21-32) mmol/L POC Total CO2 25 (24-31) mmol/L Anion Gap 8 (3-11) POC Anion Gap 13.0 L (16-25) mmol/L POC BUN 27 H (7-18) mg/dl BUN 23 (6-23) mg/dl Creatinine 1.24 (0.6-1.4) mg/dl POC Creatinine 1.3 (0.6-1.3) mg/dl Est Cr Clr Drug Dosing 64.5 ml/min eGFR 64.93 BUN/Creatinine Ratio 18.5 (10-20) Glucose 98 (70-99(Fasting)) mg/dl POC Glucose (other) 99 (70-99) mg/dl Calcium 8.2 L (8.6-10.3) mg/dl POC Ioniz Calcium Reyes 1.01 L (1.12-1.32) mmol/l Phosphorus 3.3 (2.5-4.9) mg/dl Magnesium 1.9 (1.7-2.4) mg/dl Total Bilirubin 1.5 H (0.2-1.0) mg/dl AST 89 H (13-39) U/L ALT 57 H (7-52) U/L Alkaline Phosphatase 46 (34-104) U/L Troponin I High Sens 5.4 (0-20) pg/ml Total Protein 6.5 (6.0-8.3) gm/dl Albumin 4.2 (3.4-5.0) gm/dl Globulin 2.3 L (2.5-4.0) gm/dl Albumin/Globulin Ratio 1.8 (0.9-2) Urine Color Yellow Urine Appearance Clear (Clear) Urine pH 5.5 (4.5-7.5) Ur Specific [place] 1.031 H (1.000-1.030) Urine Protein Negative (Negative) Urine Glucose (UA) Negative (Negative) Urine Ketones Trace H (Negative) Urine Blood Negative (Negative) Urine Nitrite Negative (Negative) Urine Bilirubin Negative (Negative) Urine Urobilinogen Negative (Negative) Ur Leukocyte Esterase Negative (Negative) Administered Medications Aspirin (Aspirin 325 Mg Ectab) 325 mg PO [facility] Stop: 08/19/24 16:14 Last Admin: 07/20/24 16:27 Dose: 325 mg Documented By: CTK Discontinued Medications Famotidine (Famotidine 40 Mg Tablet) 40 mg PO NOW ONE Stop: 07/20/24 16:10 Last Admin: 07/20/24 16:27 Dose: 40 mg Documented By: CTK Ioversol (Optiray 320 125ml) 119 ml IV ONCE ONE Stop: 07/20/24 15:02 Last Admin: 07/20/24 15:03 Dose: 119 ml Documented By: EDK Imaging Data Radiologist's Impression: Head CT 07/20/24 14:[address] without contrast CT angiogram of the neck CT angiogram of the brain with contrast Provided History: Neuro deficit Comparison: None Technique: HEAD CT: Using multidetector thin collimation helical acquisition technique, axial, coronal and sagittal CT images from the skull base to the vertex were obtained without intravenous contrast. HEAD and NECK CTA: During rapid bolus intravenous injection of nonionic contrast material, axial images were obtained using thin collimation multidetector helical technique from the base of the neck through the of vertex of the head. This CT angiogram data was reconstructed at thin intervals with mild overlap. 3D reconstructions were obtained. The axial source images, multiplanar reformations, 3D reconstructions in both maximum intensity projection display and volume rendered models were reviewed. Dose reduction techniques were achieved by using automatic exposure control and/or adjustment of mA and/or kV according to patient size and/or use of iterative reconstruction technique. Findings: Head CT: There is no intracranial hemorrhage, mass effect, or midline shift. Mosley/white matter differentiation in both cerebral hemispheres is preserved. Ventricles are proportionate to the cerebral sulci. Head CTA demonstrates no aneurysm or stenosis of the major intracranial arteries. Neck CTA demonstrates no stenosis of the major cervical arteries. Calcifications at the right carotid bulb without associated stenosis. The origins of the great vessels from the aortic arch are patent. No mass is noted within the visualized portions of the cervical soft tissues or lung apices. Impression: 1. Head CTA demonstrates no aneurysm or stenosis of the major intracranial arteries, 2. Neck CTA demonstrates no stenosis of the major cervical arteries. 3. No intracranial hemorrhage on the noncontrast head CT. Electronically signed by Kwadwo Granados 07-20-2024 3:50 PM Head CTA 07/20/24 14:[address] without contrast CT angiogram of the neck CT angiogram of the brain with contrast Provided History: Neuro deficit Comparison: None Technique: HEAD CT: Using multidetector thin collimation helical acquisition technique, axial, coronal and sagittal CT images from the skull base to the vertex were obtained without intravenous contrast. HEAD and NECK CTA: During rapid bolus intravenous injection of nonionic contrast material, axial images were obtained using thin collimation multidetector helical technique from the base of the neck through the of vertex of the head. This CT angiogram data was reconstructed at thin intervals with mild overlap. 3D reconstructions were obtained. The axial source images, multiplanar reformations, 3D reconstructions in both maximum intensity projection display and volume rendered models were reviewed. Dose reduction techniques were achieved by using automatic exposure control and/or adjustment of mA and/or kV according to patient size and/or use of iterative reconstruction technique. Findings: Head CT: There is no intracranial hemorrhage, mass effect, or midline shift. Mosley/white matter differentiation in both cerebral hemispheres is preserved. Ventricles are proportionate to the cerebral sulci. Head CTA demonstrates no aneurysm or stenosis of the major intracranial arteries. Neck CTA demonstrates no stenosis of the major cervical arteries. Calcifications at the right carotid bulb without associated stenosis. The origins of the great vessels from the aortic arch are patent. No mass is noted within the visualized portions of the cervical soft tissues or lung apices. Impression: 1. Head CTA demonstrates no aneurysm or stenosis of the major intracranial arteries, 2. Neck CTA demonstrates no stenosis of the major cervical arteries. 3. No intracranial hemorrhage on the noncontrast head CT. Electronically signed by Kwadwo Granados 07-20-2024 3:50 PM Neck CTA 07/20/24 14:[address] without contrast CT angiogram of the neck CT angiogram of the brain with contrast Provided History: Neuro deficit Comparison: None Technique: HEAD CT: Using multidetector thin collimation helical acquisition technique, axial, coronal and sagittal CT images from the skull base to the vertex were obtained without intravenous contrast. HEAD and NECK CTA: During rapid bolus intravenous injection of nonionic contrast material, axial images were obtained using thin collimation multidetector helical technique from the base of the neck through the of vertex of the head. This CT angiogram data was reconstructed at thin intervals with mild overlap. 3D reconstructions were obtained. The axial source images, multiplanar reformations, 3D reconstructions in both maximum intensity projection display and volume rendered models were reviewed. Dose reduction techniques were achieved by using automatic exposure control and/or adjustment of mA and/or kV according to patient size and/or use of iterative reconstruction technique. Findings: Head CT: There is no intracranial hemorrhage, mass effect, or midline shift. Mosley/white matter differentiation in both cerebral hemispheres is preserved. Ventricles are proportionate to the cerebral sulci. Head CTA demonstrates no aneurysm or stenosis of the major intracranial arteries. Neck CTA demonstrates no stenosis of the major cervical arteries. Calcifications at the right carotid bulb without associated stenosis. The origins of the great vessels from the aortic arch are patent. No mass is noted within the visualized portions of the cervical soft tissues or lung apices. Impression: 1. Head CTA demonstrates no aneurysm or stenosis of the major intracranial arteries, 2. Neck CTA demonstrates no stenosis of the major cervical arteries. 3. No intracranial hemorrhage on the noncontrast head CT. Electronically signed by Kwadwo Granados 07-20-2024 3:50 PM Discharge Plan Visit Data Chief Complaint: TIA Symptoms ED Provider: Tha Yao Discharge Problem: Brain TIA Patient Disposition: Being Evaluated by Hospitalist Forms Stand Alone Forms: My [facility] Prescriptions Prescriptions: No Action losartan 50 mg Tablet 50 mg PO DAILY carvedilol 6.25 mg Tablet 6.25 mg PO BID Rx Instructions: must administer with a meal/food terazosin 1 mg Capsule 1 mg PO HS valacyclovir 500 mg Tablet 500 mg PO BID aspirin 81 mg Tablet,Delayed Release (Dr/Ec) 81 mg PO BID ascorbic acid (vitamin C) [Vitamin C] 500 mg Tablet 500 mg PO DAILY trazodone 100 mg Tablet 100 mg PO HS buspirone [BuSpar] 10 mg Tablet 10 mg PO BID omeprazole 20 mg Capsule,Delayed Release(Dr/Ec) 20 mg PO DAILYBB magnesium 250 mg Tablet 250 mg PO BID albuterol sulfate [Ventolin HFA] 90 mcg/actuation Hfa Aerosol Inhaler 2 puff INHALATION Q4H PRN (Reason: Wheezing) cholecalciferol (vitamin D3) [Vitamin D3] 25 mcg (1,000 unit) Capsule 25 mcg PO DAILY B-complex with vitamin C [Super B Complex + C] Tablet 1 tab PO BID escitalopram oxalate [Lexapro] 10 mg Tablet 10 mg PO DAILY rosuvastatin 40 mg Tablet 40 mg PO HS tadalafil 5 mg Tablet 5 mg PO DAILY PRN (Reason: Sexual Activity) Rx Instructions: administer approximately 30min before sexual activity; do not use more than 1 dose per 24hrs vitamin E (dl, acetate) 45 mg (100 unit) Capsule 45 mg PO BID naphazoline-glycerin 0.012-0.2 % Drops 1 drp OPB DIRECTED PRN (Reason: NEEDED) ferrous sulfate 142 mg (45 mg iron) Tablet Extended Release 142 mg PO BID potassium gluconate 600 mg (99 mg) Tablet 600 mg PO DAILY guaifenesin [Mucinex] 600 mg Tablet Extended Release 12hr 600 mg PO BID PRN (Reason: Congestion) Referrals Referrals: PCP,NO [Physician] -
[2024-07-20 14:56] LABS: iSTAT Creatinine 1.3 mg/dl (0.6-1.3); iSTAT Hemoglobin 14.3 g/dl (14.0-18.0); iSTAT Ionized Calcium 1.01 mmol/l (1.12-1.32); iSTAT Potassium 3.9 mmol/L (3.3-5.0)
[2024-07-20] MEDS: OPTIRAY 320 125ml IV ONE (15:03)
[2024-07-20 15:18] LABS: Basophils # (auto) 0.03 K/uL (0.00-0.20); Basophils % (auto) 0.5 %; Eosinophils # (auto) 0.06 K/uL (0.00-0.50); Hematocrit (blood only) 38.7 % (42.0-52.0); Hemoglobin 13.6 g/dl (14.0-18.0); Immature Granulocytes # (auto) 0.01 K/uL (0.01-0.20); Immature Granulocytes % (auto) 0.2 %; Lymphocytes % (auto) 20.8 %; Mean Corpuscular Hemoglobin 33.3 pg (25.0-34.0); Mean Corpuscular Hgb Conc 35.1 g/dL (32.0-36.0); Mean Corpuscular Volume 94.9 fL (80.0-100.0); Mean Platelet Volume 9.4 fL (9.4-12.4); Monocytes # (auto) 0.57 K/uL (0.11-0.59); Monocytes % (auto) 9.1 %; Neutrophils # (auto) 4.29 K/uL (1.40-6.50); Neutrophils % (auto) 68.4 %; Platelet Count 108 K/uL (130-400); RDW Coefficient of Variation 14.2 % (11.5-14.5); RDW Standard Deviation 49.6 fL (36.4-46.3); Red Blood Count 4.08 M/uL (4.70-6.10); White Blood Count 6.26 K/ul (4.8-10.8)
[2024-07-20 15:24] LABS: Appearance Urine Clear (Clear); Bilirubin Urine Negative (Negative); Blood Urine Negative (Negative); Color Urine Yellow; Glucose Urine UA Negative (Negative); Ketones Urine Trace (Negative); Leukocyte Esterase Urine Negative (Negative); Nitrite Urine Negative (Negative); Protein Urine Negative (Negative); Specific Gravity Urine 1.031 (1.000-1.030); Urobilinogen Urine Negative (Negative); pH Urine 5.5 (4.5-7.5)
[2024-07-20 15:34] LABS: Albumin Globulin Ratio 1.8 (0.9-2); Albumin Level 4.2 gm/dl (3.4-5.0); BUN Creatinine Ratio 18.5 (10-20); Bilirubin,Total 1.5 mg/dl (0.2-1.0); Calcium 8.2 mg/dl (8.6-10.3); Creatinine Clr Calc Pharmacy 64.5 ml/min; Globulin 2.3 gm/dl (2.5-4.0); Magnesium 1.9 mg/dl (1.7-2.4); Potassium 3.9 mmol/L (3.5-5.1); Total Protein 6.5 gm/dl (6.0-8.3)
[2024-07-20 15:41] LABS: Troponin I High Sensitivity 5.4 pg/ml (0-20)
[2024-07-20 15:44] LABS: Partial Thromboplastin Ratio 0.9; Partial Thromboplastin Time 25 Seconds (21-31); Prothrombin Time 11.1 Seconds (9.0-12.0)
--- NOTE | 2024-07-20 15:51 | CT Scan Report ---
Head CT without contrast CT angiogram of the neck CT angiogram of the brain with contrast Provided History: Neuro deficit Comparison: None Technique: HEAD CT: Using multidetector thin collimation helical acquisition technique, axial, coronal and sagittal CT images from the skull base to the vertex were obtained without intravenous contrast. HEAD and NECK CTA: During rapid bolus intravenous injection of nonionic contrast material, axial images were obtained using thin collimation multidetector helical technique from the base of the neck through the of vertex of the head. This CT angiogram data was reconstructed at thin intervals with mild overlap. 3D reconstructions were obtained. The axial source images, multiplanar reformations, 3D reconstructions in both maximum intensity projection display and volume rendered models were reviewed. Dose reduction techniques were achieved by using automatic exposure control and/or adjustment of mA and/or kV according to patient size and/or use of iterative reconstruction technique. Findings: Head CT: There is no intracranial hemorrhage, mass effect, or midline shift. Mosley/white matter differentiation in both cerebral hemispheres is preserved. Ventricles are proportionate to the cerebral sulci. Head CTA demonstrates no aneurysm or stenosis of the major intracranial arteries. Neck CTA demonstrates no stenosis of the major cervical arteries. Calcifications at the right carotid bulb without associated stenosis. The origins of the great vessels from the aortic arch are patent. No mass is noted within the visualized portions of the cervical soft tissues or lung apices. Impression: 1. Head CTA demonstrates no aneurysm or stenosis of the major intracranial arteries, 2. Neck CTA demonstrates no stenosis of the major cervical arteries. 3. No intracranial hemorrhage on the noncontrast head CT. Electronically signed by Kwadwo Granados 07-20-2024 3:50 PM
[2024-07-20] MEDS: FAMOTIDINE 40 MG TABLET PO ONE (16:27)
[2024-07-20] MEDS: ASPIRIN 325 MG ECTAB PO SCH (16:27)
--- NOTE | 2024-07-20 16:40 | History & Physical Report ---
Date of Service July 20, 2024 Assessment & Plan (1) Brain TIA: (2) Essential hypertension: (3) Dyslipidemia: (4) CKD (chronic kidney disease) stage 2, GFR 60-89 ml/min: (5) YISEL (generalized anxiety disorder): (6) GERD (gastroesophageal reflux disease): Plan This is a 64 y/o male with HTN, GERD, YISEL, dyslipidemia, and other history as outlined below who presents to the ED today with episode of stroke-like symptoms lasting 15-20 minutes before resolving. Symptoms included expressive aphasia then dysarthria, facial droop, RLE paresthesias, +/- gait imbalance. Initial CT brain/CTA head and neck in the ED were negative. Pt also notes transient visual changes but relates these to known history of migraines - took twelve 200 mg ibuprofen earlier today for this. Pt referred for admission for further evaluation of possible TIA. #Brain TIA - Observe on med telemetry overnight - Neuro checks per protocol - MRI brain w/ and w/out contrast - Consult neurology - ECHO - Continue aspirin but decrease to 81 mg daily, add Plavix - Lipid panel, A1c in the AM - Passed bedside swallow (spoke with ED nurse) - will order heart healthy diet, defer speech therapy at this time - PT/OT evaluations per protocol #Excess ibuprofen ingestion - no intent for self-harm - Called poison control and reviewed case - no need for additional intervention at this time - Will give IVF with NSS x 2L - Labs in the AM - BMP, Mg, Phos; EKG in the AM - BID PPI while admitted - Educated patient on risks of taking large amounts of ibuprofen and importance of complying with recommended dosage - pt verbalizes understanding #Hypertension - Chronic, stable -permissive HTN in the first 24 hours - Resume home meds tomorrow #Dyslipidemia - Chronic - Lipid panel as above - Continue statin #YISEL - Chronic, stable - Continue home medications #GERD - Chronic, stable - PPI as above Pt seen and reviewed with collaborating physician, Dr. Parrish. Plan of care discussed and as outlined above. Code status: full code DVT prophylaxis: Lovenox and family at the bedside and were updated - all questions answered Outpatient Epic records including most recent cardiology, nephrology, and PCP notes were reviewed due to hx of HTN, CKD, dyslipidemia Rg Sellers PA-C History of Present Illness Chief Complaint: stroke-like symptoms Primary Care Provider: Derrick Granados, This is a 64 y/o male with HTN, GERD, YISEL, dyslipidemia, and other history as outlined below who presents to the ED today with episode of stroke-like symptoms. History obtained from patient and from his at the bedside. Pt was eating dinner with his family when they went to ask him if he wanted gravy and he couldn't respond. His noted that his gaze was tracking to the left and his left upper body muscles seemed to be bernadette, especially his left hand. She also noted patient had a mild left facial droop. Within a few minutes, he was able to nod yes/no to questions and then started to speak again but speech was initially garbled before ultimately returning to his baseline within 15-20 minutes. Pt reports that he thought his heard a noise off to his left when all this happened, which is why he was trying to turn around to his left to see. Family reports that there was nothing there. He also noted paresthesias in his right leg, which also resolved. He reported that he was thinking clearly and knew what he wanted to say but couldn't form the words to speak initially. He currently feels back to his baseline with resolution of his symptoms. He has not had similar symptoms previously. He does have a history of occasional migraines with visual aura and had noted wavy lines in his vision earlier today - took twelve 200 mg ibuprofen (which he reports is his usual when this happens) and th e vision changes resolved, never got a significant headache. His notes that his balance seemed off initially but that this is improving. Pt reports that his balance still feels slightly off but overall has improved. He is supposed to be taking aspirin 81 mg BID but reports running out of this so has not taken for the last several days. He denies family history of stroke, seizure, or other bret rologic disorders. His mother has a history of atrial fibrillation but pt denies ever being diagnosed with this. Denies chest pain, palpitations, dyspnea. Carotid Duplex May 2024: Right carotid artery duplex examination indicates evidence of less than 50% stenosis of the internal carotid artery. Left carotid artery duplex examination indicates evidence of less than 50% stenosis of the internal carotid artery. ECHO 11/04/20 - mild concentric LVH, normal LV systolic function without regional wall motion abnormality (LVEF 55%), grade 1 diastolic dysfunction, trileaflet aortic valve with mild sclerosis but no stenosis, mild AoR, MR, TR, mild LAE Allergies Allergy/AdvReac Type Severity Reaction Status Date / Time No Known Allergies Allergy Verified 07/20/24 16:27 Home Medications Medication Instructions Recorded Confirmed Type B-complex with vitamin C 1 tab PO BID 07/20/24 07/20/24 History albuterol sulfate 90 mcg/actuation 2 puff inhalation Q4H PRN Wheezing 07/20/24 07/20/24 History aerosol inhaler (Ventolin HFA) ascorbic acid (vitamin C) 500 mg 500 mg PO DAILY 07/20/24 07/20/24 History tablet (Vitamin C) aspirin 81 mg tablet,delayed 81 mg PO BID 07/20/24 07/20/24 History release buspirone 10 mg tablet 10 mg PO BID 07/20/24 07/20/24 History carvedilol 6.25 mg tablet 6.25 mg PO BID 07/20/24 07/20/24 History cholecalciferol (vitamin D3) 25 25 mcg PO DAILY 07/20/24 07/20/24 History mcg (1,000 unit) capsule (Vitamin D3) escitalopram oxalate 10 mg tablet 10 mg PO DAILY 07/20/24 07/20/24 History (Lexapro) ferrous sulfate 142 mg (45 mg 142 mg PO BID 07/20/24 07/20/24 History iron) tablet,extended release guaifenesin 600 mg tablet, 600 mg PO BID PRN Congestion 07/20/24 07/20/24 History extended release 12 hr (Mucinex) losartan 50 mg tablet 50 mg PO DAILY 07/20/24 07/20/24 History magnesium 250 mg tablet 250 mg PO BID 07/20/24 07/20/24 History naphazoline 0.012 %-glycerin 0.2 % 1 drp OPB DIRECTED PRN NEEDED 07/20/24 07/20/24 History eye drops omeprazole 20 mg capsule,delayed 20 mg PO DAILYBB 07/20/24 07/20/24 History release potassium gluconate 600 mg (99 mg) 600 mg PO DAILY 07/20/24 07/20/24 History tablet rosuvastatin 40 mg tablet 40 mg PO HS 07/20/24 07/20/24 History tadalafil 5 mg tablet 5 mg PO DAILY PRN Sexual Activity 07/20/24 07/20/24 History terazosin 1 mg capsule 1 mg PO HS 07/20/24 07/20/24 History trazodone 100 mg tablet 100 mg PO HS 07/20/24 07/20/24 History valacyclovir 500 mg tablet 500 mg PO BID 07/20/24 07/20/24 History vitamin E (dl, acetate) 45 mg (100 45 mg PO BID 07/20/24 07/20/24 History unit) capsule Past Med/Surg History Problem List (Updated 07/20/24 @ 18:15 by Manasa Sellers PA-C) Brain TIA (Acute) Medical History (Updated 07/20/24 @ 18:15 by Manasa Sellers PA-C) Essential hypertension CKD (chronic kidney disease) stage 2, GFR 60-89 ml/min Lumbar degenerative disc disease YISEL (generalized anxiety disorder) Dyslipidemia H/O testicular cancer History of hydrocele Herpes simplex keratitis of right eye GERD (gastroesophageal reflux disease) Surgical History History of carpal tunnel surgery S/P trigger finger release History of foot surgery H/O inguinal hernia repair S/P tonsillectomy S/P appy Family History (Updated 07/20/24 @ 16:38 by Manasa Sellers PA-C) Other Cancer Social History Smoking Status: Never smoker Preferred Language: Urdu Feels Safe at Home: Yes Review of Systems Review of Systems: All systems reviewed & are unremarkable except as noted in Subjective Physical Exam Physical Exam: General: awake, alert, NAD HEENT: PERRL, EOMI, tongue midline, moist oral mucosa Neck: supple, trachea midline Heart: RRR Lungs: CTA bilaterally, no W/R/R Abdomen: soft, NT, +BS Extremities: no pedal edema, distal pulses intact and equal Skin: warm, dry, no jaundice or rashes noted Neurologic: Ox3, no confusion, no dysarthria or aphasia noted, moving all extremities, bilateral UE and LE strength 5/5, finger to nose intact, facial expressions symmetric Results & Data Results & Data Vital Signs (Past 12 Hours) Vital Signs Temp Pulse Pulse Resp BP BP Pulse Ox 07/20/24 16:17 72 18 146/82 H 95 07/20/24 15:16 66 18 167/92 H 95 07/20/24 14:45 74 07/20/24 14:40 36.7 C 75 18 175/106 H 96 O2 Del Method 07/20/24 16:17 Room Air 07/20/24 15:16 Room Air 07/20/24 14:45 07/20/24 14:40 Room Air Laboratory Results Lab Results 07/20/24 07/20/24 07/20/24 Range/Units 14:44 14:46 15:12 WBC 6.26 (4.8-10.8) K/ul RBC 4.08 L (4.70-6.10) M/uL Hgb 13.6 L (14.0-18.0) g/dl POC Hgb 14.3 (14.0-18.0) g/dl Hct 38.7 L (42.0-52.0) % POC Hct 42 (42-52) % MCV 94.9 (80.0-100.0) fL MCH 33.3 (25.0-34.0) pg MCHC 35.1 (32.0-36.0) g/dL RDW Std Deviation 49.6 H (36.4-46.3) fL RDW Coeff of Shanel 14.2 (11.5-14.5) % Plt Count 108 L (130-400) K/uL MPV 9.4 (9.4-12.4) fL Immature Gran % (Auto) 0.2 % Neut % (Auto) 68.4 % Lymph % (Auto) 20.8 % [place] % (Auto) 9.1 % Eos % (Auto) 1.0 % Baso % (Auto) 0.5 % Neut # (Auto) 4.29 (1.40-6.50) K/uL Lymph # (Auto) 1.30 (1.20-3.40) K/uL [place] # (Auto) 0.57 (0.11-0.59) K/uL Eos # (Auto) 0.06 (0.00-0.50) K/uL Baso # (Auto) 0.03 (0.00-0.20) K/uL Immature Gran # (Auto) 0.01 (0.01-0.20) K/uL PT 11.1 (9.0-12.0) Seconds INR 1.0 (0.9-1.1) APTT 25 (21-31) Seconds PTT Ratio 0.9 POC Sodium 130 L (135-144) mmol/L Sodium 131 L (136-145) mmol/L POC Potassium 3.9 (3.3-5.0) mmol/L Potassium 3.9 (3.5-5.1) mmol/L POC Chloride 97 L (101-112) mmol/L Chloride 96 L (98-107) mmol/L Carbon Dioxide 27 (21-32) mmol/L POC Total CO2 25 (24-31) mmol/L Anion Gap 8 (3-11) POC Anion Gap 13.0 L (16-25) mmol/L POC BUN 27 H (7-18) mg/dl BUN 23 (6-23) mg/dl Creatinine 1.24 (0.6-1.4) mg/dl POC Creatinine 1.3 (0.6-1.3) mg/dl Est Cr Clr Drug Dosing 64.5 ml/min eGFR 64.93 BUN/Creatinine Ratio 18.5 (10-20) Glucose 98 (70-99(Fasting)) mg/dl POC Glucose (other) 99 (70-99) mg/dl Calcium 8.2 L (8.6-10.3) mg/dl POC Ioniz Calcium Reyes 1.01 L (1.12-1.32) mmol/l Magnesium 1.9 (1.7-2.4) mg/dl Total Bilirubin 1.5 H (0.2-1.0) mg/dl AST 89 H (13-39) U/L ALT 57 H (7-52) U/L Alkaline Phosphatase 46 (34-104) U/L Troponin I High Sens 5.4 (0-20) pg/ml Total Protein 6.5 (6.0-8.3) gm/dl Albumin 4.2 (3.4-5.0) gm/dl Globulin 2.3 L (2.5-4.0) gm/dl Albumin/Globulin Ratio 1.8 (0.9-2) Urine Color Yellow Urine Appearance Clear (Clear) Urine pH 5.5 (4.5-7.5) Ur Specific [place] 1.031 H (1.000-1.030) Urine Protein Negative (Negative) Urine Glucose (UA) Negative (Negative) Urine Ketones Trace H (Negative) Urine Blood Negative (Negative) Urine Nitrite Negative (Negative) Urine Bilirubin Negative (Negative) Urine Urobilinogen Negative (Negative) Ur Leukocyte Esterase Negative (Negative) Diagnostic Findings Head CT 07/20/24 14:[address] without contrast CT angiogram of the neck CT angiogram of the brain with contrast Provided History: Neuro deficit Comparison: None Technique: HEAD CT: Using multidetector thin collimation helical acquisition technique, axial, coronal and sagittal CT images from the skull base to the vertex were obtained without intravenous contrast. HEAD and NECK CTA: During rapid bolus intravenous injection of nonionic contrast material, axial images were obtained using thin collimation multidetector helical technique from the base of the neck through the of vertex of the head. This CT angiogram data was reconstructed at thin intervals with mild overlap. 3D reconstructions were obtained. The axial source images, multiplanar reformations, 3D reconstructions in both maximum intensity projection display and volume rendered models were reviewed. Dose reduction techniques were achieved by using automatic exposure control and/or adjustment of mA and/or kV according to patient size and/or use of iterative reconstruction technique. Findings: Head CT: There is no intracranial hemorrhage, mass effect, or midline shift. Mosley/white matter differentiation in both cerebral hemispheres is preserved. Ventricles are proportionate to the cerebral sulci. Head CTA demonstrates no aneurysm or stenosis of the major intracranial arteries. Neck CTA demonstrates no stenosis of the major cervical arteries. Calcifications at the right carotid bulb without associated stenosis. The origins of the great vessels from the aortic arch are patent. No mass is noted within the visualized portions of the cervical soft tissues or lung apices. Impression: 1. Head CTA demonstrates no aneurysm or stenosis of the major intracranial arteries, 2. Neck CTA demonstrates no stenosis of the major cervical arteries. 3. No intracranial hemorrhage on the noncontrast head CT. Electronically signed by Kwadwo Granados 07-20-2024 3:50 PM Head CTA 07/20/24 14:[address] without contrast CT angiogram of the neck CT angiogram of the brain with contrast Provided History: Neuro deficit Comparison: None Technique: HEAD CT: Using multidetector thin collimation helical acquisition technique, axial, coronal and sagittal CT images from the skull base to the vertex were obtained without intravenous contrast. HEAD and NECK CTA: During rapid bolus intravenous injection of nonionic contrast material, axial images were obtained using thin collimation multidetector helical technique from the base of the neck through the of vertex of the head. This CT angiogram data was reconstructed at thin intervals with mild overlap. 3D reconstructions were obtained. The axial source images, multiplanar reformations, 3D reconstructions in both maximum intensity projection display and volume rendered models were reviewed. Dose reduction techniques were achieved by using automatic exposure control and/or adjustment of mA and/or kV according to patient size and/or use of iterative reconstruction technique. Findings: Head CT: There is no intracranial hemorrhage, mass effect, or midline shift. Mosley/white matter differentiation in both cerebral hemispheres is preserved. Ventricles are proportionate to the cerebral sulci. Head CTA demonstrates no aneurysm or stenosis of the major intracranial arteries. Neck CTA demonstrates no stenosis of the major cervical arteries. Calcifications at the right carotid bulb without associated stenosis. The origins of the great vessels from the aortic arch are patent. No mass is noted within the visualized portions of the cervical soft tissues or lung apices. Impression: 1. Head CTA demonstrates no aneurysm or stenosis of the major intracranial arteries, 2. Neck CTA demonstrates no stenosis of the major cervical arteries. 3. No intracranial hemorrhage on the noncontrast head CT. Electronically signed by Kwadwo Granados 07-20-2024 3:50 PM Neck CTA 07/20/24 14:[address] without contrast CT angiogram of the neck CT angiogram of the brain with contrast Provided History: Neuro deficit Comparison: None Technique: HEAD CT: Using multidetector thin collimation helical acquisition technique, axial, coronal and sagittal CT images from the skull base to the vertex were obtained without intravenous contrast. HEAD and NECK CTA: During rapid bolus intravenous injection of nonionic contrast material, axial images were obtained using thin collimation multidetector helical technique from the base of the neck through the of vertex of the head. This CT angiogram data was reconstructed at thin intervals with mild overlap. 3D reconstructions were obtained. The axial source images, multiplanar reformations, 3D reconstructions in both maximum intensity projection display and volume rendered models were reviewed. Dose reduction techniques were achieved by using automatic exposure control and/or adjustment of mA and/or kV according to patient size and/or use of iterative reconstruction technique. Findings: Head CT: There is no intracranial hemorrhage, mass effect, or midline shift. Mosley/white matter differentiation in both cerebral hemispheres is preserved. Ventricles are proportionate to the cerebral sulci. Head CTA demonstrates no aneurysm or stenosis of the major intracranial arteries. Neck CTA demonstrates no stenosis of the major cervical arteries. Calcifications at the right carotid bulb without associated stenosis. The origins of the great vessels from the aortic arch are patent. No mass is noted within the visualized portions of the cervical soft tissues or lung apices. Impression: 1. Head CTA demonstrates no aneurysm or stenosis of the major intracranial arteries, 2. Neck CTA demonstrates no stenosis of the major cervical arteries. 3. No intracranial hemorrhage on the noncontrast head CT. Electronically signed by Kwadwo Granados 07-20-2024 3:50 PM Medications Administered Aspirin (Aspirin 325 Mg Ectab) 325 mg PO QAM [place] Stop: 08/19/24 16:14 Last Admin: 07/20/24 16:27 Dose: 325 mg Documented By: CTK Discontinued Medications Famotidine (Famotidine 40 Mg Tablet) 40 mg PO NOW ONE Stop: 07/20/24 16:10 Last Admin: 07/20/24 16:27 Dose: 40 mg Documented By: CTK Ioversol (Optiray 320 125ml) 119 ml IV ONCE ONE Stop: 07/20/24 15:02 Last Admin: 07/20/24 15:03 Dose: 119 ml Documented By: EDK Supervising Physician Co-Signing Physician Notes 64-year-old male with PMH of HTN, GERD, YISEL, HLD , testicular cancer presents to the ED with complaint of RLE paresthesia, expressive aphasia, left facial droop, garbled speech. Symptoms spontaneously resolved in 15-20 min per pt. Pt states he had transient visual changes and thinking it is aura for his migraine, he took 12 ibuprofen tabs (200 mg). Pt back to baseline state of health at bedside exam. Labs and imaging reviewed, CBC fairly at his baseline, mild hyponatremia noted, BUN and creatinine WNL, T. bili/AST/ALT mildly elevated. OP LFT from 05/01/2024 fairly wnl (AST 26, ALT22, ALP 49, Tbili 0.7). Repeat LFT in AM, get hepatitis panel, get us liver. Na of 131, will send hyponatremia w/u. OP Na around 136 to 142. Both Na level and LFT elevation could be from excess ibuprofen intake. Since LFT mildly elevated and has concern of TIA, we will continue w/ home statin for now, continue to monitor the LFT and if uptrending LFT, hold statin. UA negative for UTI. CTA head and neck and CT head with no acute finding. EKG with no acute ST or T changes. Will get MRI brain, echo, tele monitor, echo, neuro consult. Allow permissive HTN. Start DAPT. A1c and lipid in AM. avoid omeprazole while on plavix. Poison control contacted for excessive ibuprofen ingestion, plan to c/w ivf and monitor electrolytes. Send hyponatremia workup. Send LFT in a.m., hepatitis panel, ultrasound liver. On exam: GENERAL: Alert and oriented x3. NAD, on RA. HEENT: No pallor, no icterus. Pupils equal, round and reactive to light. Oral mucosa moist. NECK: No JVD, no neck masses. HEART: S1 and S2 heard. Regular rate and rhythm. No murmur, no gallop. RESPIRATORY SYSTEM: Normal AP diameter. No accessory muscle use. No wheezing, no crackles. ABDOMEN: Soft, bowel sounds present, nontender, no distention. CENTRAL NERVOUS SYSTEM: No facial droop. Speech is clear. Obeys simple commands. Moves extremities. EXTREMITIES: No edema, no erythema seen. I have seen and examined the patient and have discussed the case with the provider above. I agree with the assessment and plan as stated. Time spent: 30 min (6) GERD (gastroesophageal reflux disease) Esophagitis presence: esophagitis presence not specified Qualified Code(s): K21.9 - Gastro-esophageal reflux disease without esophagitis
[2024-07-20 18:01] LABS: Phosphorus 3.3 mg/dl (2.5-4.9)
[2024-07-20] MEDS: SODIUM CHLORIDE 0.9% 1,000 ML IV SCH (18:06)
[2024-07-20] MEDS ORDERED: PHARMACIST DISCHARGE MED REC CONSULT PRN (19:17)
[2024-07-20] MEDS ORDERED: GLYCERIN OPB PRN (19:17)
[2024-07-20] MEDS ORDERED: NAPHAZOLINE OPB PRN (19:17)
[2024-07-20] MEDS ORDERED: ALBUTEROL HFA 8 GM INHALER INH PRN (19:17)
[2024-07-20] MEDS: TERAZOSIN HCL 1 MG CAP PO SCH (20:09)
[2024-07-20] MEDS: CLOPIDOGREL BISULFATE 75 MG TAB PO SCH (20:09)
[2024-07-20] MEDS: traZODone HCL 100 MG TAB PO SCH (20:10)
[2024-07-20] MEDS: valACYclovir HCL 500 MG TABLET PO SCH (20:10)
[2024-07-20] MEDS: busPIRone 5 MG TAB PO SCH (20:10)
[2024-07-20] MEDS: carvediloL 6.25 MG TAB PO SCH (20:10)
[2024-07-20] MEDS: ROSUVASTATIN CALCIUM 20 MG TAB PO SCH (20:11)
[2024-07-20] MEDS ORDERED: NON-FORMULARY MEDICATION (Magnesium 250 mg Tablet) PO SCH (21:00)
[2024-07-20] MEDS ORDERED: NON-FORMULARY MEDICATION (B-Complex With Vitamin C Tablet) PO SCH (21:00)
[2024-07-20] MEDS: PANTOprazole 40 MG TAB PO SCH (21:04)
--- NOTE | 2024-07-20 23:56 | Ultrasound Report ---
Exam(s): US LIVER EXAM: US Abdomen Limited CLINICAL HISTORY: Elevated liver function tests TECHNIQUE: Real-time ultrasound of the abdomen with image documentation. COMPARISON: No relevant prior studies available. FINDINGS: Liver: The liver measures 18.5 cm. There is increased echogenicity of the liver. No mass. Gallbladder: Thickening of the gallbladder wall likely relates to chronic liver disease. No cholelithiasis. Common bile duct: The common bile duct is normal measuring 0.4 cm. Pancreas: The pancreatic head and body are within normal limits. The tail is not visualized due to overlying bowel gas. Kidneys: Increased echogenicity of the renal cortex. The right kidney measures 9.1 cm. IMPRESSION: 1. Hepatomegaly with fatty infiltration of the liver. 2. Thickening of the gallbladder wall likely relates to chronic liver disease. No cholelithiasis. 3. Increased echogenicity of the right renal cortex is most consistent with chronic medical renal disease. No hydronephrosis. Electronically signed by: Aidee Arroyo MD 07/20/24 23:55 PM
[2024-07-21] MEDS: GADOBUTROL 65ML VIAL IV ONE (02:10)
--- NOTE | 2024-07-21 03:23 | Magnetic Resonance Report ---
EXAM: MR brain wo/w con CLINICAL HISTORY: Transient ischemic attack. TECHNIQUE: MRI of the brain was performed with and without intravenous contrast administration. Sequences obtained include pre-contrast and post-contrast T1-weighted, T2-weighted, FLAIR (Fluid-Attenuated Inversion Recovery), DWI (Diffusion-Weighted Imaging), and ADC (Apparent Diffusion Coefficient) sequences. COMPARISON: CT Head and Angio dated 07/20/2024 were reviewed FINDINGS: Brain Parenchyma: Subtle minimal FLAIR hyperintensity seen in the periventricular region likely due to deep white matter ischemic changes No evidence of acute infarction or hemorrhage. Mosley-white matter differentiation is preserved. No abnormal signal intensity lesions identified. Post-Contrast Findings: No abnormal enhancement of the brain parenchyma or meninges. Ventricles and Sulci: Ventricular system is within normal limits without evidence of hydrocephalus. Sulci and cisternal spaces are age-appropriate. Brainstem and Cerebellum: Normal appearance of the brainstem and cerebellum without focal lesions or abnormal enhancement. Vessels: Intracranial vessels appear normal without evidence of vascular malformations or aneurysms. Skull and Calvarium: No evidence of skull vault lesions or abnormal marrow signal within the calvarium. Sinuses: Minimal mucosal thickening seen in both ethmoid sinus. Minimal S-shaped deviation of nasal septum is identified Mastoids: Mild opacification of both mastoid air cells IMPRESSION: No evidence of acute intracranial pathology or abnormal contrast enhancement. Minimal periventricular deep white matter ischemic changes, with no significant change. Minimal bilateral ethmoid sinusitis, with no gross change. Mild opacification of both mastoid air cells, with no gross change since last examination, likely due to mastoiditis. No other significant interval changes seen. Electronically signed by Amrik Rodriguez 07-21-2024 03:22 AM
[2024-07-21] MEDS: ASPIRIN 81 MG ECTAB PO SCH (07:31)
[2024-07-21] MEDS: ESCITALOPRAM OXALATE 10 MG TAB PO SCH (07:32)
[2024-07-21] MEDS: CHOLECALCIFEROL 25 MCG (1000 UNITS) TAB PO SCH (07:32)
[2024-07-21] MEDS: LOSARTAN POTASSIUM 50 MG TAB PO SCH (07:32)
[2024-07-21] MEDS: FERROUS SULFATE 325 MG TAB PO SCH (07:32)
[2024-07-21] MEDS: ASCORBIC ACID 500 MG TAB PO SCH (07:33)
[2024-07-21] MEDS: ENOXAPARIN INJ 40 MG/0.4 ML SYR SQ SCH (07:33)
[2024-07-21 07:53] LABS: Albumin Level 3.9 gm/dl (3.4-5.0); BUN Creatinine Ratio 17.9 (10-20); Bilirubin Direct 0.2 mg/dl (0-0.2); Bilirubin,Total 1.2 mg/dl (0.2-1.0); Calcium 8.4 mg/dl (8.6-10.3); Creatinine Clr Calc Pharmacy 68.1 ml/min; Magnesium 2.1 mg/dl (1.7-2.4); Phosphorus 3.2 mg/dl (2.5-4.9); Potassium 3.7 mmol/L (3.5-5.1); Total Protein 6.2 gm/dl (6.0-8.3)
[2024-07-21 07:58] LABS: Hematocrit (blood only) 40.7 % (42.0-52.0); Hemoglobin 13.9 g/dl (14.0-18.0); Mean Corpuscular Hemoglobin 32.6 pg (25.0-34.0); Mean Corpuscular Hgb Conc 34.2 g/dL (32.0-36.0); Mean Corpuscular Volume 95.5 fL (80.0-100.0); Mean Platelet Volume 9.4 fL (9.4-12.4); Platelet Count 98 K/uL (130-400); RDW Coefficient of Variation 14.4 % (11.5-14.5); RDW Standard Deviation 50.6 fL (36.4-46.3); Red Blood Count 4.26 M/uL (4.70-6.10); White Blood Count 4.93 K/ul (4.8-10.8)
[2024-07-21 08:00] LABS: Basophils # (auto) 0.01 K/uL (0.00-0.20); Basophils % (auto) 0.2 %; Eosinophils # (auto) 0.05 K/uL (0.00-0.50); Immature Granulocytes # (auto) 0.01 K/uL (0.01-0.20); Immature Granulocytes % (auto) 0.2 %; Lymphocytes # (auto) 1.01 K/uL (1.20-3.40); Lymphocytes % (auto) 20.5 %; Monocytes # (auto) 0.46 K/uL (0.11-0.59); Monocytes % (auto) 9.3 %; Neutrophils # (auto) 3.39 K/uL (1.40-6.50); Neutrophils % (auto) 68.8 %
[2024-07-21] MEDS: POTASSIUM CHLORIDE 10 MEQ TABCR PO SCH (08:55)
--- NOTE | 2024-07-21 09:03 | Electrocardiogram Report ---
Test Reason : Blood Pressure : */* mmHG Vent. Rate : 69 BPM Atrial Rate : 69 BPM P-R Int : 170 ms QRS Dur : 86 ms QT Int : 400 ms P-R-T Axes : 72 -9 32 degrees QTcB Int : 428 ms Normal sinus rhythm with sinus arrhythmia Possible Left atrial enlargement Minimal voltage criteria for LVH, may be normal variant ( R in aVL ) Poor R wave progression, consider anterior [place] vs. lead placement vs. LVH Abnormal ECG When compared with ECG of 10-Dec-2015 14:02, Nonspecific T wave abnormality now evident in Anterior leads Confirmed by Jeremy Garces ([id number]) on 07/21/2024 9:03:33 AM Referred By: REFERRED SELF Confirmed By: Jeremy Garces
[2024-07-21] MEDS: ACETAMINOPHEN 325 MG TAB PO PRN (09:12)
--- NOTE | 2024-07-21 09:14 | Electrocardiogram Report ---
Test Reason : Blood Pressure : */* mmHG Vent. Rate : 57 BPM Atrial Rate : 57 BPM P-R Int : 178 ms QRS Dur : 98 ms QT Int : 448 ms P-R-T Axes : 60 -14 30 degrees QTcB Int : 436 ms Sinus bradycardia Poor R wave progression, consider anterior DC vs. lead placement vs. LVH When compared with ECG of 20-Jul-2024 14:41, (unconfirmed) No significant change was found Confirmed by Jeremy Garces ([id number]) on 07/21/2024 9:14:01 AM Referred By: REFERRED SELF Confirmed By: Jeremy Garces
[2024-07-21 09:20] LABS: Estimated Average Glucose 100 mg/dl; Hemoglobin A1C 5.1 % (4.5-5.6)
[2024-07-21 09:48] LABS: Hep B Surface Ag with confirm Negative (Negative)
[2024-07-21 09:53] LABS: Hep C Ab Rflx HepCQuant RNA Negative (Negative)
--- NOTE | 2024-07-21 12:42 | Neurology Consultation ---
Date of Consultation July 21, 2024 Assessment & Plan (1) Seizure disorder, complex partial, with intractable epilepsy: Suspect a seizure event rather than a TIA given left gaze deviation with left upper extremity stiffening and fast fist clenching. Seizure could be simple partial or complex partial. Could be precipitated by hyponatremia and hypocalcemia, vasoconstriction due to migraine or TIA. Plan Images reviewed with no evidence of prior ischemic insults. CTA with no evidence of atherosclerotic disease or flow-limiting stenosis. Echocardiogram with a small PFO, recommend aspirin 81 mg daily due to low suspicion for TIA. Can obtain a Zio patch as an outpatient. For migraine and seizure prevention the patient can be started on Topamax 25 mg at bedtime for 3 days then increase to 25 mg twice daily. Magnesium glycinate 400 mg at bedtime. Riboflavin 400 mg in the morning. Please report to [employer] the patient cannot drive. The patient will need to follow-up with a neurologist as an outpatient for further management. Will follow along EEG report Telehealth Consultation Telehealth Information Telehealth Information: I performed this visit using a real-time telehealth connection between my location and the patients location ([facility]). After connecting through interactive tele-video, patient was identified by name and date of and/or wristband check.Patient (or authorized healthcare customer counter representative) was informed that this was a telemedicine visit and it was being conducted confidentially over secure lines. My office door was closed and no one else was present in the room with me.Patient (or authorized healthcare customer counter representative) provided consent to proceed with the visit, expressed an understanding of privacy and security of the telemedicine visit, and gave permission to have a hospital customer counter representative in the room in order to assist with the visit and to conduct portions of the visit, as needed. I informed the patient (or authorized healthcare customer counter representative) that I reviewed their record and presented the opportunity for them to ask any questions regarding the visit today. The patient agreed to participate. 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 Who has presented to the hospital yesterday with an episode of unresponsiveness during which he had left gaze deviation and stiffening of the left upper body muscles , clenched fist with some left facial droop,for 2-3 minutes , followed by confusion but improved within 20 minutes. The patient reports that earlier in the day he had headache with visual aura for which he ingested a large amount of ibuprofen Allergies Allergy/AdvReac Type Severity Reaction Status Date / Time No Known Allergies Allergy Verified 07/20/24 16:27 Home Medications Medication Instructions Recorded Confirmed Type B-complex with vitamin C 1 tab PO BID 07/20/24 07/20/24 History albuterol sulfate 90 mcg/actuation 2 puff inhalation Q4H PRN Wheezing 07/20/24 07/20/24 History aerosol inhaler (Ventolin HFA) ascorbic acid (vitamin C) 500 mg 500 mg PO DAILY 07/20/24 07/20/24 History tablet (Vitamin C) aspirin 81 mg tablet,delayed 81 mg PO BID 07/20/24 07/20/24 History release buspirone 10 mg tablet 10 mg PO BID 07/20/24 07/20/24 History carvedilol 6.25 mg tablet 6.25 mg PO BID 07/20/24 07/20/24 History cholecalciferol (vitamin D3) 25 25 mcg PO DAILY 07/20/24 07/20/24 History mcg (1,000 unit) capsule (Vitamin D3) escitalopram oxalate 10 mg tablet 10 mg PO DAILY 07/20/24 07/20/24 History (Lexapro) ferrous sulfate 142 mg (45 mg 142 mg PO BID 07/20/24 07/20/24 History iron) tablet,extended release guaifenesin 600 mg tablet, 600 mg PO BID PRN Congestion 07/20/24 07/20/24 History extended release 12 hr (Mucinex) losartan 50 mg tablet 50 mg PO DAILY 07/20/24 07/20/24 History magnesium 250 mg tablet 250 mg PO BID 07/20/24 07/20/24 History naphazoline 0.012 %-glycerin 0.2 % 1 drp OPB DIRECTED PRN NEEDED 07/20/24 07/20/24 History eye drops omeprazole 20 mg capsule,delayed 20 mg PO DAILYBB 07/20/24 07/20/24 History release potassium gluconate 600 mg (99 mg) 600 mg PO DAILY 07/20/24 07/20/24 History tablet rosuvastatin 40 mg tablet 40 mg PO HS 07/20/24 07/20/24 History tadalafil 5 mg tablet 5 mg PO DAILY PRN Sexual Activity 07/20/24 07/20/24 History terazosin 1 mg capsule 1 mg PO HS 07/20/24 07/20/24 History trazodone 100 mg tablet 100 mg PO HS 07/20/24 07/20/24 History valacyclovir 500 mg tablet 500 mg PO BID 07/20/24 07/20/24 History vitamin E (dl, acetate) 45 mg (100 45 mg PO BID 07/20/24 07/20/24 History unit) capsule Patient History Medical History (Updated 07/21/24 @ 13:24 by Janette Mc MD) Essential hypertension CKD (chronic kidney disease) stage 2, GFR 60-89 ml/min Lumbar degenerative disc disease YISEL (generalized anxiety disorder) Dyslipidemia H/O testicular cancer History of hydrocele Herpes simplex keratitis of right eye GERD (gastroesophageal reflux disease) Surgical History History of carpal tunnel surgery S/P trigger finger release History of foot surgery H/O inguinal hernia repair S/P tonsillectomy S/P appy Family History (Updated 07/20/24 @ 16:38 by Manasa Sellers PA-C) Other Cancer Social History Smoking Status: Never smoker Hx Alcohol Use: No Hx Substance Use: No Preferred Language: Polish Communication Ability: Effective Neurological Surgeon Required: No Beliefs That Will Affect Care: None Current Living Situation: Spouse Other Information That Helps Us Care for You: No Feels Safe at Home: Yes Safety Concerns: Feels Safe At This Time Assistive Devices: Denture - Lower and Glasses Review of Systems Constitutional: Patient denies weight loss, fever, chills, and night sweats Eyes: Patient denies change in vision, tearing, pain, and redness ENT: Patient denies pain, bleeding, rhinorrhea, and dysphagia Cardiovascular: Patient denies chest pain, palpitation, dyspnea at rest, and dyspnea with exertion Respiratory: Patient denies shortness of breath, cough, wheezing, and productive cough GI: Patient denies reflux, pain, constipation, and diarrhea Skin: Patient denies rash, dryness, and itching Allergies/Immune System: Patient denies rhinorrhea, seasonal allergies, reaction to current MEDS, and joint swelling Endocrine: Patient denies weight loss, weight gain, temperature intolerance, and excessive thirst Neurological: All negative unless mentioned in the HPI Physical Exam General Constitutional: Appearance normally developed Head and face: normocephalic and atraumatic Eyes: no ptosis, no anisocoria, and no dysconjugate gaze Respiratory: normal effort Cardiovascular: regular rhythm and regular rate Abdomen: non distended Skin: no rashes, lesions, or ulcers noted Psychiatric: normal judgement and insight, normal mood, and normal affect NEUROLOGIC EXAMINATION: Mental Status:alert, oriented to time, place, person, normal recent memory, normal remote memory, normal attention span, normal concentration, normal language and normal fund of knowledge Cranial Nerves: CN 2 - no visual defect on confrontation and pupils round, equal, reactive to light CN 3, 4, 6 - extra-ocular movements intact and no nystagmus CN 5 - facial sensation intact CN 7 - no facial asymmetry CN 8 - intact hearing CN 9, 10 - palate symmetric, normal gag CN 11 - good shoulder shrug CN 12 - tongue midline MOTOR: Strength was at least antigravity throughout, Pronator drift was absent and There were no abnormal movements SENSATION: intact and symmetric to pinprick, light touch, vibration and joint position GAIT: stable, no ataxia and can perform tandem walking COORDINATION: no ataxia with finger to nose testing and heel to allen testing REFLEXES: cannot assess over telemedicine NIH Stroke Scale: 1a. Level of Consciousness: alert = 0 1b. LOC Questions: (month, age): both correct = 0 1c. LOC Commands (open and close eyes, make fist and let go using non-paretic hand): obeys both correctly = 0 2. Best Gaze (eyes open and patient follows examiner's finger or face): normal = 0 3. Visual (visual threat or finger counting in each quadrant): no loss = 0 4. Facial Palsy (show teeth, raise eye brows and squeeze eyes shut, or grimace symmetry in a comatose patient): normal = 0 5a. Motor Arm (extend arm (palms down) to 90 degrees and score drift/movement (10 seconds) - Left: no drift = 0 5b. Motor Arm: (extend arm (palms down) to 90 degrees and score drift/movement (10 seconds) - Right: no drift = 0 6a. Motor Leg (elevate leg 30 degrees and score drift/ movement (5 seconds) - Left: no drift = 0 6b. Motor Leg (elevate leg 30 degrees and score drift/ movement (5 seconds) - Right: no drift = 0 7. Limb Ataxia (finger to nose, heel down allen): absent = 0 8. Sensory (pin prick to face, arm, trunk and leg, compare side to side): normal = 0 9. Best Language: no aphasia = 0 10. Dysarthria (evaluate speech clarity by patient repeating listed words): normal articulation = 0 11. Extinction and Inattention: no neglect = 0 Total: 0 Results & Data Vital Signs (Past 12 Hours) Vital Signs Temp Pulse Pulse Resp BP Pulse Ox O2 Del Method 07/21/24 11:53 36.8 C 64 16 175/91 H 97 Room Air 07/21/24 07:51 36.7 C 64 20 145/82 H 97 Room Air 07/21/24 07:14 61 07/21/24 02:27 36.6 C 65 18 145/81 H 96 Room Air Laboratory Results Laboratory Results - last 24 hr 07/20/24 07/20/24 07/20/24 14:40 14:44 14:46 WBC 6.26 RBC 4.08 L Hgb 13.6 L POC Hgb 14.3 Hct 38.7 L POC Hct 42 MCV 94.9 MCH 33.3 MCHC 35.1 RDW Std Deviation 49.6 H RDW Coeff of Shanel 14.2 Plt Count 108 L MPV 9.4 Immature Gran % (Auto) 0.2 Neut % (Auto) 68.4 Lymph % (Auto) 20.8 [place] % (Auto) 9.1 Eos % (Auto) 1.0 Baso % (Auto) 0.5 Neut # (Auto) 4.29 Lymph # (Auto) 1.30 [place] # (Auto) 0.57 Eos # (Auto) 0.06 Baso # (Auto) 0.03 Immature Gran # (Auto) 0.01 PT 11.1 INR 1.0 APTT 25 PTT Ratio 0.9 POC Sodium 130 L Sodium 131 L POC Potassium 3.9 Potassium 3.9 POC Chloride 97 L Chloride 96 L Carbon Dioxide 27 POC Total CO2 25 Anion Gap 8 POC Anion Gap 13.0 L POC BUN 27 H BUN 23 Creatinine 1.24 POC Creatinine 1.3 Est Cr Clr Drug Dosing 64.5 eGFR 64.93 BUN/Creatinine Ratio 18.5 Glucose 98 POC Glucose (other) 99 Estimat Average Glucose Hemoglobin A1c Osmolality Cancelled Calcium 8.2 L POC Ioniz Calcium Reyes 1.01 L Phosphorus 3.3 Magnesium 1.9 Total Bilirubin 1.5 H Direct Bilirubin AST 89 H ALT 57 H Alkaline Phosphatase 46 Troponin I High Sens 5.4 Total Protein 6.5 Albumin 4.2 Globulin 2.3 L Albumin/Globulin Ratio 1.8 Triglycerides Cholesterol LDL Cholesterol, Calc VLDL Cholesterol, Calc HDL Cholesterol Cholesterol/HDL Ratio Urine Color Urine Appearance Urine pH Ur Specific [place] Urine Protein Urine Glucose (UA) Urine Ketones Urine Blood Urine Nitrite Urine Bilirubin Urine Urobilinogen Ur Leukocyte Esterase Urine Osmolality Ur Random Sodium Hepatitis A IgM Ab Hep Bs Antigen Hep B Core IgM Ab Hepatitis C Antibody Miscellaneous Test 07/20/24 07/20/24 07/20/24 15:12 19:17 19:54 WBC RBC Hgb POC Hgb Hct POC Hct MCV MCH MCHC RDW Std Deviation RDW Coeff of Shanel Plt Count MPV Immature Gran % (Auto) Neut % (Auto) Lymph % (Auto) [place] % (Auto) Eos % (Auto) Baso % (Auto) Neut # (Auto) Lymph # (Auto) [place] # (Auto) Eos # (Auto) Baso # (Auto) Immature Gran # (Auto) PT INR APTT PTT Ratio POC Sodium Sodium POC Potassium Potassium POC Chloride Chloride Carbon Dioxide POC Total CO2 Anion Gap POC Anion Gap POC BUN BUN Creatinine POC Creatinine Est Cr Clr Drug Dosing eGFR BUN/Creatinine Ratio Glucose POC Glucose (other) Estimat Average Glucose Hemoglobin A1c Osmolality Calcium POC Ioniz Calcium Reyes Phosphorus Magnesium Total Bilirubin Direct Bilirubin AST ALT Alkaline Phosphatase Troponin I High Sens Total Protein Albumin Globulin Albumin/Globulin Ratio Triglycerides Cholesterol LDL Cholesterol, Calc VLDL Cholesterol, Calc HDL Cholesterol Cholesterol/HDL Ratio Urine Color Yellow Urine Appearance Clear Urine pH 5.5 Ur Specific [place] 1.031 H Urine Protein Negative Urine Glucose (UA) Negative Urine Ketones Trace H Urine Blood Negative Urine Nitrite Negative Urine Bilirubin Negative Urine Urobilinogen Negative Ur Leukocyte Esterase Negative Urine Osmolality Cancelled Ur Random Sodium 50 Hepatitis A IgM Ab Hep Bs Antigen Hep B Core IgM Ab Hepatitis C Antibody Miscellaneous Test Pending 07/20/24 07/21/24 22:37 07:01 WBC 4.93 RBC 4.26 L Hgb 13.9 L POC Hgb Hct 40.7 L POC Hct MCV 95.5 MCH 32.6 MCHC 34.2 RDW Std Deviation 50.6 H RDW Coeff of Shanel 14.4 Plt Count 98 L MPV 9.4 Immature Gran % (Auto) 0.2 Neut % (Auto) 68.8 Lymph % (Auto) 20.5 [place] % (Auto) 9.3 Eos % (Auto) 1.0 Baso % (Auto) 0.2 Neut # (Auto) 3.39 Lymph # (Auto) 1.01 L [place] # (Auto) 0.46 Eos # (Auto) 0.05 Baso # (Auto) 0.01 Immature Gran # (Auto) 0.01 PT INR APTT PTT Ratio POC Sodium Sodium 139 POC Potassium Potassium 3.7 POC Chloride Chloride 106 Carbon Dioxide 30 POC Total CO2 Anion Gap 3 POC Anion Gap POC BUN BUN 19 Creatinine 1.06 POC Creatinine Est Cr Clr Drug Dosing 68.1 eGFR 78.37 BUN/Creatinine Ratio 17.9 Glucose 129 H POC Glucose (other) Estimat Average Glucose 100 Hemoglobin A1c 5.1 Osmolality Calcium 8.4 L POC Ioniz Calcium Reyes Phosphorus 3.2 Magnesium 2.1 Total Bilirubin 1.2 H Direct Bilirubin 0.2 AST 76 H ALT 52 Alkaline Phosphatase 51 Troponin I High Sens Total Protein 6.2 Albumin 3.9 Globulin Albumin/Globulin Ratio Triglycerides 163 H Cholesterol 175 LDL Cholesterol, Calc 54 VLDL Cholesterol, Calc 33 H HDL Cholesterol 88 Cholesterol/HDL Ratio 2.0 Urine Color Urine Appearance Urine pH Ur Specific [place] Urine Protein Urine Glucose (UA) Urine Ketones Urine Blood Urine Nitrite Urine Bilirubin Urine Urobilinogen Ur Leukocyte Esterase Urine Osmolality Ur Random Sodium Hepatitis A IgM Ab Pending Hep Bs Antigen Negative Hep B Core IgM Ab Pending Hepatitis C Antibody Negative Miscellaneous Test Pending Diagnostic Findings CT scan of the head shows no acute changes. CTA of the head and neck shows no significant atherosclerotic disease, noted early bifurcation of the M1 on both sides with bilateral correctional lieutenant. MRI of the brain shows no acute diffusion changes changes, no GRE changes, no other intracranial abnormalities. Echocardiogram showed a preserved ejection fraction of 60 to 65%, normal-sized atrium, a small PFO is possible by agitated saline. Medications Administered Home Medications Medication Instructions Recorded Confirmed Last Taken B-complex with vitamin C 1 tab PO BID 07/20/24 07/20/24 07/20/24 08:00 albuterol sulfate 90 mcg/actuation 2 puff inhalation Q4H PRN Wheezing 07/20/24 07/20/24 Unknown aerosol inhaler (Ventolin HFA) ascorbic acid (vitamin C) 500 mg 500 mg PO DAILY 07/20/24 07/20/24 07/20/24 tablet (Vitamin C) aspirin 81 mg tablet,delayed 81 mg PO BID 07/20/24 07/20/24 07/20/24 08:00 release buspirone 10 mg tablet 10 mg PO BID 07/20/24 07/20/24 07/20/24 08:00 carvedilol 6.25 mg tablet 6.25 mg PO BID 07/20/24 07/20/24 07/20/24 08:00 cholecalciferol (vitamin D3) 25 25 mcg PO DAILY 07/20/24 07/20/24 07/20/24 mcg (1,000 unit) capsule (Vitamin D3) escitalopram oxalate 10 mg tablet 10 mg PO DAILY 07/20/24 07/20/24 07/20/24 (Lexapro) ferrous sulfate 142 mg (45 mg 142 mg PO BID 07/20/24 07/20/24 07/20/24 08:00 iron) tablet,extended release guaifenesin 600 mg tablet, 600 mg PO BID PRN Congestion 07/20/24 07/20/24 Unknown extended release 12 hr (Mucinex) losartan 50 mg tablet 50 mg PO DAILY 07/20/24 07/20/24 07/20/24 magnesium 250 mg tablet 250 mg PO BID 07/20/24 07/20/24 07/20/24 naphazoline 0.012 %-glycerin 0.2 % 1 drp OPB DIRECTED PRN NEEDED 07/20/24 07/20/24 Unknown eye drops omeprazole 20 mg capsule,delayed 20 mg PO DAILYBB 07/20/24 07/20/24 07/20/24 release potassium gluconate 600 mg (99 mg) 600 mg PO DAILY 07/20/24 07/20/24 07/20/24 tablet rosuvastatin 40 mg tablet 40 mg PO HS 07/20/24 07/20/24 07/19/24 tadalafil 5 mg tablet 5 mg PO DAILY PRN Sexual Activity 07/20/24 07/20/24 Unknown terazosin 1 mg capsule 1 mg PO HS 07/20/24 07/20/24 07/19/24 trazodone 100 mg tablet 100 mg PO HS 07/20/24 07/20/24 07/19/24 valacyclovir 500 mg tablet 500 mg PO BID 07/20/24 07/20/24 07/20/24 08:00 vitamin E (dl, acetate) 45 mg (100 45 mg PO BID 07/20/24 07/20/24 07/20/24 unit) capsule Active Medications Generic Name Dose Route Start Last Admin Trade Name Freq PRN Reason Stop Dose Admin Acetaminophen 650 mg 07/20/24 19:17 07/21/24 09:12 Acetaminophen 325 Mg Tab PO 08/19/24 19:16 650 mg Q4H PRN Administration Pain or Fever Ascorbic Acid 500 mg 07/21/24 09:00 07/21/24 07:33 Ascorbic Acid 500 Mg Tab PO 08/20/24 08:59 500 mg DAILY VALENTINA Administration Aspirin 81 mg 07/21/24 09:00 07/21/24 07:31 Aspirin 81 Mg Ectab PO 08/20/24 08:59 81 mg DAILY VALENTINA Administration Buspirone HCl 10 mg 07/20/24 21:00 07/21/24 07:32 Buspirone 5 Mg Tab PO 08/19/24 20:59 10 mg BID VALENTINA Administration Carvedilol 6.25 mg 07/20/24 21:00 07/21/24 07:33 Carvedilol 6.25 Mg Tab PO 08/19/24 20:59 6.25 mg BID VALENTINA Administration Clopidogrel Bisulfate 75 mg 07/20/24 19:17 07/21/24 07:31 Clopidogrel Bisulfate 75 Mg Tab PO 08/19/24 19:16 75 mg QAM VALENTINA Administration Enoxaparin Sodium 40 mg 07/21/24 09:00 07/21/24 07:33 Enoxaparin Inj 40 Mg/0.4 Ml Syr SQ 08/20/24 08:59 40 mg QAM VALENTINA Administration Escitalopram Oxalate 10 mg 07/21/24 09:00 07/21/24 07:32 Escitalopram Oxalate 10 Mg Tab PO 08/20/24 08:59 10 mg DAILY VALENTINA Administration Ferrous Sulfate 325 mg 07/21/24 09:00 07/21/24 07:32 Ferrous Sulfate 325 Mg Tab PO 08/20/24 08:59 325 mg DAILY VALENTINA Administration Losartan Potassium 50 mg 07/21/24 09:00 07/21/24 07:32 Losartan Potassium 50 Mg Tab PO 08/20/24 08:59 50 mg DAILY VALENTINA Administration Pantoprazole Sodium 40 mg 07/20/24 21:00 07/21/24 08:55 Pantoprazole 40 Mg Tab PO 08/19/24 20:59 40 mg BID VALENTINA Administration Potassium Chloride 10 meq 07/21/24 09:00 07/21/24 08:55 Potassium Chloride 10 Meq Tabcr PO 08/20/24 08:59 10 meq DAILY VALENTINA Administration Rosuvastatin Calcium 40 mg 07/20/24 21:00 07/20/24 20:11 Rosuvastatin Calcium 20 Mg Tab PO 08/19/24 20:59 40 mg HS VALENTINA Administration Terazosin HCl 1 mg 07/20/24 21:00 07/20/24 20:09 Terazosin Hcl 1 Mg Cap PO 08/19/24 20:59 1 mg HS VALENTINA Administration Trazodone HCl 100 mg 07/20/24 21:00 07/20/24 20:10 Trazodone Hcl 100 Mg Tab PO 08/19/24 20:59 100 mg HS VALENTINA Administration Valacyclovir HCl 500 mg 07/20/24 21:00 07/21/24 07:32 Valacyclovir Hcl 500 Mg Tablet PO 08/19/24 20:59 500 mg BID VALENTINA Administration Vitamin D 25 mcg 07/21/24 09:00 07/21/24 07:32 Cholecalciferol 25 Mcg (1000 Units) Tab PO 08/20/24 08:59 25 mcg DAILY VALENTINA Administration
--- NOTE | 2024-07-21 14:50 | Hospitalist Progress Note ---
Date of Service July 21, 2024 Assessment & Plan (1) Brain TIA: (2) Essential hypertension: (3) Dyslipidemia: (4) CKD (chronic kidney disease) stage 2, GFR 60-89 ml/min: (5) YISEL (generalized anxiety disorder): (6) GERD (gastroesophageal reflux disease): Plan Patient is a 64 y/o male with HTN, GERD, YISEL, dyslipidemia, and other history as outlined below who presents to the ED today with episode of stroke-like symptoms lasting 15-20 minutes before resolving. Symptoms included expressive aphasia then dysarthria, facial droop, RLE paresthesias, +/- gait imbalance. Initial CT brain/CTA head and neck in the ED were negative. Pt also notes transient visual changes but relates these to known history of migraines - took twelve 200 mg ibuprofen earlier today for this. Pt referred for admission for further evaluation of possible TIA. Strokelike symptoms Suspected seizure DD: Complex migraine, TIA --MRI Brain:No evidence of acute intracranial pathology or abnormal contrast enhancement. Minimal periventricular deep white matter ischemic changes, with no significant change. Minimal bilateral ethmoid sinusitis, with no gross change. Mild opacification of both mastoid air cells, with no gross change since last examination, likely due to mastoiditis. No other significant interval changes seen. --Head/Neck CTA:1. Head CTA demonstrates no aneurysm or stenosis of the major intracranial arteries. Neck CTA demonstrates no stenosis of the major cervical arteries. No intracranial hemorrhage on the noncontrast head CT. --ECHO: Small patent foramen ovale suspected by agitated saline contrast injection with trivial [id number] shunt --Total cholesterol 135, triglycerides 163, LDL 54 HbA1c 5.1 --Continue home aspirin, rosuvastatin -- EEG pending Appreciate neurology input:Likely seizure episode Started on Topamax 25 mg at bedtime for 3 days then increase to 25 mg twice a day Start on magnesium oxide 400 mg daily and riboflavin 400 mg daily ZIO monitor as outpatient Advised no driving until cleared by neurology Will place on seizure precautions and Ativan as needed Needs follow-up with neurology on discharge Speech, PT OT eval Hypertension Continue carvedilol, losartan Monitor blood pressure Dyslipidemia Continue rosuvastatin YISEL Chronic, stable Continue home medications GERD Continue PPI DVT Px: Lovenox SQ CODE STATUS Full code Admission and Anticipated Discharge Date Admission Date: July 20, 2024 Subjective Patient is seen and examined at bedside States feeling much better today Had transient" wavy vision" this morning which resolved Denies any headache, focal weakness, chest pain, dyspnea, nausea, vomiting, abdominal pain Paresthesia, expressive aphasia resolved Denies any difficulty swallowing Discussed with neurology today Also discussed with patient's family at bedside Review of Systems Review of Systems: All systems reviewed & are unremarkable except as noted in Subjective Physical Exam Physical Exam: Physical Exam: Vitals signs as noted above General Appearance:Moderately built and nourished, no apparent distress Head: normocephalic, Atraumatic Eyes: normal inspection, EOMI Neck: supple, Trachea midline Respiratory/Chest: Normal breath sounds, CTA, No accessory muscle use Cardiovascular: S1, S2, No murmur Abdomen/GI:Soft, Non tender, Bowel sounds present Extremities/Musculoskeletal:normal inspection, no edema Neurologic/Psych:AAOX3, no focal deficits on exam, normal speech Skin: normal color, warm Results & Data Results & Data Vital Signs (Past 12 Hours) Vital Signs Temp Pulse Pulse Resp BP Pulse Ox O2 Del Method 07/21/24 11:53 36.8 C 64 16 175/91 H 97 Room Air 07/21/24 07:51 36.7 C 64 20 145/82 H 97 Room Air 07/21/24 07:14 61 Laboratory Results Short CBC 07/20/24 07/21/24 Range/Units 14:46 07:01 WBC 6.26 4.93 (4.8-10.8) K/ul Hgb 13.6 L 13.9 L (14.0-18.0) g/dl Hct 38.7 L 40.7 L (42.0-52.0) % Plt Count 108 L 98 L (130-400) K/uL BMP 07/20/24 07/21/24 14:46 07:01 Sodium 131 L 139 Potassium 3.9 3.7 Chloride 96 L 106 Carbon Dioxide 27 30 BUN 23 19 Creatinine 1.24 1.06 Glucose 98 129 H Calcium 8.2 L 8.4 L Liver Function 07/20/24 07/21/24 Range/Units 14:46 07:01 Total Bilirubin 1.5 H 1.2 H (0.2-1.0) mg/dl Direct Bilirubin 0.2 (0-0.2) mg/dl AST 89 H 76 H (13-39) U/L ALT 57 H 52 (7-52) U/L Alkaline Phosphatase 46 51 (34-104) U/L Albumin 4.2 3.9 (3.4-5.0) gm/dl Urine 07/20/24 Range/Units 15:12 Urine Color Yellow Urine Appearance Clear (Clear) Urine pH 5.5 (4.5-7.5) Ur Specific [place] 1.031 H (1.000-1.030) Urine Protein Negative (Negative) Urine Glucose (UA) Negative (Negative) (6) GERD (gastroesophageal reflux disease) Esophagitis presence: esophagitis presence not specified Qualified Code(s): K21.9 - Gastro-esophageal reflux disease without esophagitis
[2024-07-21] MEDS ORDERED: LORazepam 2 MG/1 ML VIAL IV PRN (15:04)
[2024-07-21] MEDS: TOPIRAMATE 25 MG TAB PO SCH (21:34)
[2024-07-21] MEDS: MAGNESIUM OXIDE 400 MG TAB PO SCH (21:34)
[2024-07-22 06:29] LABS: Basophils # (auto) 0.02 K/uL (0.00-0.20); Basophils % (auto) 0.4 %; Eosinophils # (auto) 0.09 K/uL (0.00-0.50); Eosinophils % (auto) 1.9 %; Hematocrit (blood only) 38.6 % (42.0-52.0); Hemoglobin 13.1 g/dl (14.0-18.0); Immature Granulocytes # (auto) 0.01 K/uL (0.01-0.20); Immature Granulocytes % (auto) 0.2 %; Lymphocytes # (auto) 1.09 K/uL (1.20-3.40); Lymphocytes % (auto) 23.1 %; Mean Corpuscular Hemoglobin 33.2 pg (25.0-34.0); Mean Corpuscular Hgb Conc 33.9 g/dL (32.0-36.0); Mean Corpuscular Volume 97.7 fL (80.0-100.0); Mean Platelet Volume 9.5 fL (9.4-12.4); Monocytes # (auto) 0.55 K/uL (0.11-0.59); Monocytes % (auto) 11.7 %; Neutrophils # (auto) 2.96 K/uL (1.40-6.50); Neutrophils % (auto) 62.7 %; Platelet Count 87 K/uL (130-400); RDW Coefficient of Variation 14.4 % (11.5-14.5); RDW Standard Deviation 52.5 fL (36.4-46.3); Red Blood Count 3.95 M/uL (4.70-6.10); White Blood Count 4.72 K/ul (4.8-10.8)
[2024-07-22 06:51] LABS: BUN Creatinine Ratio 19.4 (10-20); Calcium 8.3 mg/dl (8.6-10.3); Creatinine Clr Calc Pharmacy 77.6 ml/min; Potassium 4.4 mmol/L (3.5-5.1)
[2024-07-22 07:56] VITALS: RESP 16
[2024-07-22 11:36] VITALS: BP 130/72; PULSE 65; TEMP 97.5; O2SAT 95
--- NOTE | 2024-07-22 12:05 | Hospitalist Progress Note ---
Date of Service July 22, 2024 Assessment & Plan (1) Brain TIA: (2) Essential hypertension: (3) Dyslipidemia: (4) CKD (chronic kidney disease) stage 2, GFR 60-89 ml/min: (5) YISEL (generalized anxiety disorder): (6) GERD (gastroesophageal reflux disease): Plan Patient is a 64 y/o male with HTN, GERD, YISEL, dyslipidemia, and other history as outlined below who presents to the ED today with episode of stroke-like symptoms lasting 15-20 minutes before resolving. Symptoms included expressive aphasia then dysarthria, facial droop, RLE paresthesias, +/- gait imbalance. Initial CT brain/CTA head and neck in the ED were negative. Pt also notes transient visual changes but relates these to known history of migraines - took twelve 200 mg ibuprofen earlier today for this. Pt referred for admission for further evaluation of possible TIA. Strokelike symptoms Suspected seizure DD: Complex migraine, TIA --MRI Brain:No evidence of acute intracranial pathology or abnormal contrast enhancement. Minimal periventricular deep white matter ischemic changes, with no significant change. Minimal bilateral ethmoid sinusitis, with no gross change. Mild opacification of both mastoid air cells, with no gross change since last examination, likely due to mastoiditis. No other significant interval changes seen. --Head/Neck CTA:1. Head CTA demonstrates no aneurysm or stenosis of the major intracranial arteries. Neck CTA demonstrates no stenosis of the major cervical arteries. No intracranial hemorrhage on the noncontrast head CT. --ECHO: Small patent foramen ovale suspected by agitated saline contrast injection with trivial [id number] shunt --Total cholesterol 135, triglycerides 163, LDL 54 HbA1c 5.1 --Continue home aspirin, rosuvastatin -- EEG pending Appreciate neurology input:Likely seizure episode Started on Topamax 25 mg at bedtime for 3 days then increase to 25 mg twice a day Start on magnesium oxide 400 mg daily and riboflavin 400 mg daily ZIO monitor as outpatient Advised no driving until cleared by neurology Will place on seizure precautions and Ativan as needed Advised to follow-up with neurology on discharge Speech, PT OT eval Plan to discharge home today Hypertension Continue carvedilol, losartan Monitor blood pressure Dyslipidemia Continue rosuvastatin YISEL Chronic, stable Continue home medications GERD Continue PPI DVT Px: Lovenox SQ CODE STATUS Full code Disposition Home Admission and Anticipated Discharge Date Admission Date: July 20, 2024 Subjective Patient is seen and examined at bedside Doing well today Discussed with patient's family at bedside Had EEG earlier today No recurrence of aphasia, seizure-like activity, change in vision Paresthesia resolved Plan to discharge home today Offers no other complaints Review of Systems Review of Systems: All systems reviewed & are unremarkable except as noted in Subjective Physical Exam Physical Exam: Physical Exam: Vitals signs as noted above General Appearance:Moderately built and nourished, no apparent distress Head: normocephalic, Atraumatic Eyes: normal inspection, EOMI Neck: supple, Trachea midline Respiratory/Chest: Normal breath sounds, CTA, No accessory muscle use Cardiovascular: S1, S2, No murmur Abdomen/GI:Soft, Non tender, Bowel sounds present Extremities/Musculoskeletal:normal inspection, no edema Neurologic/Psych:AAOX3, no focal deficits on exam, normal speech Skin: normal color, warm Results & Data Results & Data Vital Signs (Past 12 Hours) Vital Signs Temp Pulse Pulse Resp BP Pulse Ox O2 Del Method 07/22/24 11:35 36.4 C L 65 16 130/72 95 Room Air 07/22/24 07:53 36.7 C 68 16 125/65 96 Room Air 07/22/24 07:19 57 L 07/22/24 03:31 36.4 C L 77 18 126/75 96 Room Air Laboratory Results Short CBC 07/22/24 Range/Units 05:52 WBC 4.72 L (4.8-10.8) K/ul Hgb 13.1 L (14.0-18.0) g/dl Hct 38.6 L (42.0-52.0) % Plt Count 87 L (130-400) K/uL BMP 07/22/24 05:52 Sodium 142 Potassium 4.4 Chloride 106 Carbon Dioxide 34 H BUN 18 Creatinine 0.93 Glucose 106 H Calcium 8.3 L (6) GERD (gastroesophageal reflux disease) Esophagitis presence: esophagitis presence not specified Qualified Code(s): K21.9 - Gastro-esophageal reflux disease without esophagitis
--- NOTE | 2024-07-22 12:25 | Discharge Summary ---
Date of Service July 22, 2024 Admission HPI Per Admitting Provider This is a 64 y/o male with HTN, GERD, YISEL, dyslipidemia, and other history as outlined below who presents to the ED today with episode of stroke-like symptoms. History obtained from patient and from his at the bedside. Pt was eating dinner with his family when they went to ask him if he wanted gravy and he couldn't respond. His noted that his gaze was tracking to the left and his left upper body muscles seemed to be bernadette, especially his left hand. She also noted patient had a mild left facial droop. Within a few minutes, he was able to nod yes/no to questions and then started to speak again but speech was initially garbled before ultimately returning to his baseline within 15-20 minutes. Pt reports that he thought his heard a noise off to his left when all this happened, which is why he was trying to turn around to his left to see. Family reports that there was nothing there. He also noted paresthesias in his right leg, which also resolved. He reported that he was thinking clearly and kn ew what he wanted to say but couldn't form the words to speak initially. He currently feels back to his baseline with resolution of his symptoms. He has not had similar symptoms previously. He does have a history of occasional migraines with visual aura and had noted wavy lines in his vision earlier today - took twelve 200 mg ibuprofen (which he reports is his usual when this happens) and the vision changes resolved, never got a significant headache. His notes that his balance seemed off initially but that this is improving. Pt reports that his balance still feels slightly off but overall has improved. He is supposed to be taking aspirin 81 mg BID but reports running out of this so has not taken for the last several days. He denies family history of stroke, seizure, or other neurologic disorders. His mother has a history of atrial fibrillation but pt denies ever being diagnosed with this. Denies chest pain, palpitations, dyspnea. Carotid Duplex May 2024: Right carotid artery duplex examination indicates evidence of less than 50% stenosis of the internal carotid artery. Left carotid artery duplex examination indicates evidence of less than 50% sten osis of the internal carotid artery. ECHO 11/04/20 - mild concentric LVH, normal LV systolic function without regional wall motion abnormality (LVEF 55%), grade 1 diastolic dysfunction, trileaflet aortic valve with mild sclerosis but no stenosis, mild AoR, MR, TR, mild LAE Admission Exam Per Admitting Provider General: awake, alert, NAD HEENT: PERRL, EOMI, tongue midline, moist oral mucosa Neck: supple, trachea midline Heart: RRR Lungs: CTA bilaterally, no W/R/R Abdomen: soft, NT, +BS Extremities: no pedal edema, distal pulses intact and equal Skin: warm, dry, no jaundice or rashes noted Neurologic: Ox3, no confusion, no dysarthria or aphasia noted, moving all extrem ities, bilateral UE and LE strength 5/5, finger to nose intact, facial expressions symmetric Principal Diagnosis Strokelike symptoms Suspected Seizure/Transient Ischemic Attack Migraine Abnormal ECHO Discharge Data Allergies Allergy/AdvReac Type Severity Reaction Status Date / Time No Known Allergies Allergy Verified 07/20/24 16:27 Consultations 07/20/24 16:47 ED Decision to Admit Stat 07/20/24 19:17 Consult Neurology Routine Procedures Performed Laboratory Results WBC 4.72 K/ul (4.8-10.8) L 07/22/24 05:52 RBC 3.95 M/uL (4.70-6.10) L 07/22/24 05:52 Hgb 13.1 g/dl (14.0-18.0) L 07/22/24 05:52 POC Hgb 14.3 g/dl (14.0-18.0) 07/20/24 14:44 Hct 38.6 % (42.0-52.0) L 07/22/24 05:52 POC Hct 42 % (42-52) 07/20/24 14:44 MCV 97.7 fL (80.0-100.0) 07/22/24 05:52 MCH 33.2 pg (25.0-34.0) 07/22/24 05:52 MCHC 33.9 g/dL (32.0-36.0) 07/22/24 05:52 RDW Std Deviation 52.5 fL (36.4-46.3) H 07/22/24 05:52 RDW Coeff of Shanel 14.4 % (11.5-14.5) 07/22/24 05:52 Plt Count 87 K/uL (130-400) L 07/22/24 05:52 MPV 9.5 fL (9.4-12.4) 07/22/24 05:52 Immature Gran % (Auto) 0.2 % 07/22/24 05:52 Neut % (Auto) 62.7 % 07/22/24 05:52 Lymph % (Auto) 23.1 % 07/22/24 05:52 [place] % (Auto) 11.7 % 07/22/24 05:52 Eos % (Auto) 1.9 % 07/22/24 05:52 Baso % (Auto) 0.4 % 07/22/24 05:52 Neut # (Auto) 2.96 K/uL (1.40-6.50) 07/22/24 05:52 Lymph # (Auto) 1.09 K/uL (1.20-3.40) L 07/22/24 05:52 [place] # (Auto) 0.55 K/uL (0.11-0.59) 07/22/24 05:52 Eos # (Auto) 0.09 K/uL (0.00-0.50) 07/22/24 05:52 Baso # (Auto) 0.02 K/uL (0.00-0.20) 07/22/24 05:52 Immature Gran # (Auto) 0.01 K/uL (0.01-0.20) 07/22/24 05:52 PT 11.1 Seconds (9.0-12.0) 07/20/24 14:46 INR 1.0 (0.9-1.1) 07/20/24 14:46 APTT 25 Seconds (21-31) 07/20/24 14:46 PTT Ratio 0.9 07/20/24 14:46 POC Sodium 130 mmol/L (135-144) L 07/20/24 14:44 Sodium 142 mmol/L (136-145) 07/22/24 05:52 POC Potassium 3.9 mmol/L (3.3-5.0) 07/20/24 14:44 Potassium 4.4 mmol/L (3.5-5.1) 07/22/24 05:52 POC Chloride 97 mmol/L (101-112) L 07/20/24 14:44 Chloride 106 mmol/L (98-107) 07/22/24 05:52 Carbon Dioxide 34 mmol/L (21-32) H 07/22/24 05:52 POC Total CO2 25 mmol/L (24-31) 07/20/24 14:44 Anion Gap 2 (3-11) L 07/22/24 05:52 POC Anion Gap 13.0 mmol/L (16-25) L 07/20/24 14:44 POC BUN 27 mg/dl (7-18) H 07/20/24 14:44 BUN 18 mg/dl (6-23) 07/22/24 05:52 Creatinine 0.93 mg/dl (0.6-1.4) 07/22/24 05:52 POC Creatinine 1.3 mg/dl (0.6-1.3) 07/20/24 14:44 Est Cr Clr Drug Dosing 77.6 ml/min 07/22/24 05:52 eGFR 91.69 07/22/24 05:52 BUN/Creatinine Ratio 19.4 (10-20) 07/22/24 05:52 Glucose 106 mg/dl (70-99(Fasting)) H 07/22/24 05:52 POC Glucose (other) 99 mg/dl (70-99) 07/20/24 14:44 Estimat Average Glucose 100 mg/dl 07/21/24 07:01 Hemoglobin A1c 5.1 % (4.5-5.6) 07/21/24 07:01 Osmolality Cancelled 07/20/24 14:40 Calcium 8.3 mg/dl (8.6-10.3) L 07/22/24 05:52 POC Ioniz Calcium Reyes 1.01 mmol/l (1.12-1.32) L 07/20/24 14:44 Phosphorus 3.2 mg/dl (2.5-4.9) 07/21/24 07:01 Magnesium 2.1 mg/dl (1.7-2.4) 07/21/24 07:01 Total Bilirubin 1.2 mg/dl (0.2-1.0) H 07/21/24 07:01 Direct Bilirubin 0.2 mg/dl (0-0.2) 07/21/24 07:01 AST 76 U/L (13-39) H 07/21/24 07:01 ALT 52 U/L (7-52) 07/21/24 07:01 Alkaline Phosphatase 51 U/L (34-104) 07/21/24 07:01 Troponin I High Sens 5.4 pg/ml (0-20) 07/20/24 14:46 Total Protein 6.2 gm/dl (6.0-8.3) 07/21/24 07:01 Albumin 3.9 gm/dl (3.4-5.0) 07/21/24 07:01 Globulin 2.3 gm/dl (2.5-4.0) L 07/20/24 14:46 Albumin/Globulin Ratio 1.8 (0.9-2) 07/20/24 14:46 Triglycerides 163 mg/dl (0-150) H 07/21/24 07:01 Cholesterol 175 mg/dl (0-200) 07/21/24 07:01 LDL Cholesterol, Calc 54 mg/dl 07/21/24 07:01 VLDL Cholesterol, Calc 33 mg/dl (0-30) H 07/21/24 07:01 HDL Cholesterol 88 mg/dl 07/21/24 07:01 Cholesterol/HDL Ratio 2.0 (0-5) 07/21/24 07:01 Urine Color Yellow 07/20/24 15:12 Urine Appearance Clear (Clear) 07/20/24 15:12 Urine pH 5.5 (4.5-7.5) 07/20/24 15:12 Ur Specific [place] 1.031 (1.000-1.030) H 07/20/24 15:12 Urine Protein Negative (Negative) 07/20/24 15:12 Urine Glucose (UA) Negative (Negative) 07/20/24 15:12 Urine Ketones Trace (Negative) H 07/20/24 15:12 Urine Blood Negative (Negative) 07/20/24 15:12 Urine Nitrite Negative (Negative) 07/20/24 15:12 Urine Bilirubin Negative (Negative) 07/20/24 15:12 Urine Urobilinogen Negative (Negative) 07/20/24 15:12 Ur Leukocyte Esterase Negative (Negative) 07/20/24 15:12 Urine Osmolality Cancelled 07/20/24 19:54 Ur Random Sodium 50 mmol/L 07/20/24 19:54 Hep Bs Antigen Negative (Negative) 07/21/24 07:01 Hepatitis C Antibody Negative (Negative) 07/21/24 07:[address] 07/20/24 14:[address] without contrast CT angiogram of the neck CT angiogram of the brain with contrast Provided History: Neuro deficit Comparison: None Technique: HEAD CT: Using multidetector thin collimation helical acquisition technique, axial, coronal and sagittal CT images from the skull base to the vertex were obtained without intravenous contrast. HEAD and NECK CTA: During rapid bolus intravenous injection of nonionic contrast material, axial images were obtained using thin collimation multidetector helical technique from the base of the neck through the of vertex of the head. This CT angiogram data was reconstructed at thin intervals with mild overlap. 3D reconstructions were obtained. The axial source images, multiplanar reformations, 3D reconstructions in both maximum intensity projection display and volume rendered models were reviewed. Dose reduction techniques were achieved by using automatic exposure control and/or adjustment of mA and/or kV according to patient size and/or use of iterative reconstruction technique. Findings: Head CT: There is no intracranial hemorrhage, mass effect, or midline shift. Mosley/white matter differentiation in both cerebral hemispheres is preserved. Ventricles are proportionate to the cerebral sulci. Head CTA demonstrates no aneurysm or stenosis of the major intracranial arteries. Neck CTA demonstrates no stenosis of the major cervical arteries. Calcifications at the right carotid bulb without associated stenosis. The origins of the great vessels from the aortic arch are patent. No mass is noted within the visualized portions of the cervical soft tissues or lung apices. Impression: 1. Head CTA demonstrates no aneurysm or stenosis of the major intracranial arteries, 2. Neck CTA demonstrates no stenosis of the major cervical arteries. 3. No intracranial hemorrhage on the noncontrast head CT. Electronically signed by Kwadwo Granados 07-20-2024 3:50 PM Head CTA 07/20/24 14:[address] without contrast CT angiogram of the neck CT angiogram of the brain with contrast Provided History: Neuro deficit Comparison: None Technique: HEAD CT: Using multidetector thin collimation helical acquisition technique, axial, coronal and sagittal CT images from the skull base to the vertex were obtained without intravenous contrast. HEAD and NECK CTA: During rapid bolus intravenous injection of nonionic contrast material, axial images were obtained using thin collimation multidetector helical technique from the base of the neck through the of vertex of the head. This CT angiogram data was reconstructed at thin intervals with mild overlap. 3D reconstructions were obtained. The axial source images, multiplanar reformations, 3D reconstructions in both maximum intensity projection display and volume rendered models were reviewed. Dose reduction techniques were achieved by using automatic exposure control and/or adjustment of mA and/or kV according to patient size and/or use of iterative reconstruction technique. Findings: Head CT: There is no intracranial hemorrhage, mass effect, or midline shift. Mosley/white matter differentiation in both cerebral hemispheres is preserved. Ventricles are proportionate to the cerebral sulci. Head CTA demonstrates no aneurysm or stenosis of the major intracranial arteries. Neck CTA demonstrates no stenosis of the major cervical arteries. Calcifications at the right carotid bulb without associated stenosis. The origins of the great vessels from the aortic arch are patent. No mass is noted within the visualized portions of the cervical soft tissues or lung apices. Impression: 1. Head CTA demonstrates no aneurysm or stenosis of the major intracranial arteries, 2. Neck CTA demonstrates no stenosis of the major cervical arteries. 3. No intracranial hemorrhage on the noncontrast head CT. Electronically signed by Kwadwo Granados 07-20-2024 3:50 PM Neck CTA 07/20/24 14:[address] without contrast CT angiogram of the neck CT angiogram of the brain with contrast Provided History: Neuro deficit Comparison: None Technique: HEAD CT: Using multidetector thin collimation helical acquisition technique, axial, coronal and sagittal CT images from the skull base to the vertex were obtained without intravenous contrast. HEAD and NECK CTA: During rapid bolus intravenous injection of nonionic contrast material, axial images were obtained using thin collimation multidetector helical technique from the base of the neck through the of vertex of the head. This CT angiogram data was reconstructed at thin intervals with mild overlap. 3D reconstructions were obtained. The axial source images, multiplanar reformations, 3D reconstructions in both maximum intensity projection display and volume rendered models were reviewed. Dose reduction techniques were achieved by using automatic exposure control and/or adjustment of mA and/or kV according to patient size and/or use of iterative reconstruction technique. Findings: Head CT: There is no intracranial hemorrhage, mass effect, or midline shift. Mosley/white matter differentiation in both cerebral hemispheres is preserved. Ventricles are proportionate to the cerebral sulci. Head CTA demonstrates no aneurysm or stenosis of the major intracranial arteries. Neck CTA demonstrates no stenosis of the major cervical arteries. Calcifications at the right carotid bulb without associated stenosis. The origins of the great vessels from the aortic arch are patent. No mass is noted within the visualized portions of the cervical soft tissues or lung apices. Impression: 1. Head CTA demonstrates no aneurysm or stenosis of the major intracranial arteries, 2. Neck CTA demonstrates no stenosis of the major cervical arteries. 3. No intracranial hemorrhage on the noncontrast head CT. Electronically signed by Kwadwo Granados 07-20-2024 3:50 PM Liver Ultrasound 07/20/24 19:17 Exam(s): US LIVER EXAM: US Abdomen Limited CLINICAL HISTORY: Elevated liver function tests TECHNIQUE: Real-time ultrasound of the abdomen with image documentation. COMPARISON: No relevant prior studies available. FINDINGS: Liver: The liver measures 18.5 cm. There is increased echogenicity of the liver. No mass. Gallbladder: Thickening of the gallbladder wall likely relates to chronic liver disease. No cholelithiasis. Common bile duct: The common bile duct is normal measuring 0.4 cm. Pancreas: The pancreatic head and body are within normal limits. The tail is not visualized due to overlying bowel gas. Kidneys: Increased echogenicity of the renal cortex. The right kidney measures 9.1 cm. IMPRESSION: 1. Hepatomegaly with fatty infiltration of the liver. 2. Thickening of the gallbladder wall likely relates to chronic liver disease. No cholelithiasis. 3. Increased echogenicity of the right renal cortex is most consistent with chronic medical renal disease. No hydronephrosis. Electronically signed by: Aidee Arroyo MD 07/20/24 23:55 PM Brain MRI 07/21/24 01:31 EXAM: MR brain wo/w con CLINICAL HISTORY: Transient ischemic attack. TECHNIQUE: MRI of the brain was performed with and without intravenous contrast administration. Sequences obtained include pre-contrast and post-contrast T1-weighted, T2-weighted, FLAIR (Fluid-Attenuated Inversion Recovery), DWI (Diffusion-Weighted Imaging), and ADC (Apparent Diffusion Coefficient) sequences. COMPARISON: CT Head and Angio dated 07/20/2024 were reviewed FINDINGS: Brain Parenchyma: Subtle minimal FLAIR hyperintensity seen in the periventricular region likely due to deep white matter ischemic changes No evidence of acute infarction or hemorrhage. Mosley-white matter differentiation is preserved. No abnormal signal intensity lesions identified. Post-Contrast Findings: No abnormal enhancement of the brain parenchyma or meninges. Ventricles and Sulci: Ventricular system is within normal limits without evidence of hydrocephalus. Sulci and cisternal spaces are age-appropriate. Brainstem and Cerebellum: Normal appearance of the brainstem and cerebellum without focal lesions or abnormal enhancement. Vessels: Intracranial vessels appear normal without evidence of vascular malformations or aneurysms. Skull and Calvarium: No evidence of skull vault lesions or abnormal marrow signal within the calvarium. Sinuses: Minimal mucosal thickening seen in both ethmoid sinus. Minimal S-shaped deviation of nasal septum is identified Mastoids: Mild opacification of both mastoid air cells IMPRESSION: No evidence of acute intracranial pathology or abnormal contrast enhancement. Minimal periventricular deep white matter ischemic changes, with no significant change. Minimal bilateral ethmoid sinusitis, with no gross change. Mild opacification of both mastoid air cells, with no gross change since last examination, likely due to mastoiditis. No other significant interval changes seen. Electronically signed by Amrik Rodriguez 07-21-2024 03:22 AM Ordered Studies 07/20/24 14:38 CT angio head w con Stat CT angio neck with con Stat CT head/brain wo con Stat 07/20/24 19:17 US liver Routine 07/21/24 01:31 MR brain wo/w con Routine Hospital Course (1) Brain TIA: (2) Essential hypertension: (3) Dyslipidemia: (4) CKD (chronic kidney disease) stage 2, GFR 60-89 ml/min: (5) YISEL (generalized anxiety disorder): (6) GERD (gastroesophageal reflux disease): Plan Patient is a 64 y/o male with HTN, GERD, YISEL, dyslipidemia, and other history as outlined below who presents to the ED today with episode of stroke-like symptoms lasting 15-20 minutes before resolving. Symptoms included expressive aphasia then dysarthria, facial droop, RLE paresthesias, +/- gait imbalance. Initial CT brain/CTA head and neck in the ED were negative. Pt also notes transient visual changes but relates these to known history of migraines - took twelve 200 mg ibuprofen earlier today for this. Pt referred for admission for further evaluation of possible TIA. Strokelike symptoms Suspected seizure DD: Complex migraine, TIA --MRI Brain:No evidence of acute intracranial pathology or abnormal contrast enhancement. Minimal periventricular deep white matter ischemic changes, with no significant change. Minimal bilateral ethmoid sinusitis, with no gross change. Mild opacification of both mastoid air cells, with no gross change since last examination, likely due to mastoiditis. No other significant interval changes seen. --Head/Neck CTA:1. Head CTA demonstrates no aneurysm or stenosis of the major intracranial arteries. Neck CTA demonstrates no stenosis of the major cervical arteries. No intracranial hemorrhage on the noncontrast head CT. --ECHO: Small patent foramen ovale suspected by agitated saline contrast injection with trivial [id number] shunt --Total cholesterol 135, triglycerides 163, LDL 54 HbA1c 5.1 --Continue home aspirin, rosuvastatin -- EEG pending Appreciate neurology input:Likely seizure episode Started on Topamax 25 mg at bedtime for 3 days then increase to 25 mg twice a day Start on magnesium oxide 400 mg daily and riboflavin 400 mg daily ZIO monitor as outpatient Advised no driving until cleared by neurology Will place on seizure precautions and Ativan as needed Advised to follow-up with neurology on discharge Speech, PT OT eval Plan to discharge home today Hypertension Continue carvedilol, losartan Monitor blood pressure Dyslipidemia Continue rosuvastatin YISEL Chronic, stable Continue home medications GERD Continue PPI DVT Px: Lovenox SQ CODE STATUS Full code Disposition Home Total Time Total Time Spent Total Time Spent (In Minutes): 54 MINUTES Discharge Plan Discharge Items Patient Disposition: Home - Self-Care Reason For Visit: TIA Discharge Diagnosis: Strokelike symptoms Suspected Seizure/Transient Ischemic Attack Migraine Abnormal ECHO Activity: Per Instructions section Exercise/Sports: Gradually increase as tolerated Driving/Machine Use: No driving permitted until cleared by your neurologist Non-emergency contact: Primary Care Provider, Quotation Checker and Neurologist Call non-emergency contact if: you have any medication questions, your symptoms worsen, your pain is concerning for you and you have a fever Follow-up/Referrals: Sepideh Villanueva MD [Physician] - (Date & Time 07/31/2024 3:00 PM Provider: Sepideh Villanueva MD Neurology [facility] ) Derrick Granados DO [Primary Care Provider] - (Date & Time 07/28/2024 11:00 AM Provider: Derrick Granados DO Family Practice [facility] ) Diet: Heart Healthy Add Attending Provider Instructions: Follow-up with your primary care physician Dr. Derrick Granados on 07/28/2024 11:00 AM Follow-up with your neurologist Dr. Sepideh Villanueva on 07/31/2024 3:00 PM Follow-up with your paid search analyst for further evaluation of abnormal echocardiogram and for possible ZIO monitor to rule out arrhythmias --No driving permitted until cleared by a neurologist. --Your electroencephalogram (EEG) result is pending at the time of discharge. Follow-up with your physician for results. --Start taking Topamax 25 mg at bedtime for 3 days and then increase to 25 mg twice a day as recommended by your neurologist --Start taking magnesium oxide 400 mg daily and riboflavin 400 mg daily to help prevent migraine attacks Seek immediate medical attention if your symptoms reoccur or worsen Please review medication list provided on discharge for any medication changes as instructed. Please call if you have any questions or problems. You can reach a [facility] hospitalist on duty at [facility] 24 hours a day by calling [phone] Pending Studies at Discharge: Yes Studies:: EEG Stand-Alone Forms: My [facility] Useful at Night, Smoking Cessation Medications and DC Order Prescriptions: New topiramate 25 mg Tablet 25 mg PO UD Qty: 90 0RF Rx Instructions: Start taking Topamax 25 mg daily at bedtime for 3 days and then increase to twice a day. magnesium oxide 400 mg (241.3 mg magnesium) Tablet 400 mg PO HS Qty: 30 1RF riboflavin (vitamin B2) 400 mg tablet 400 mg PO DAILY Qty: 30 1RF Continued losartan 50 mg Tablet 50 mg PO DAILY carvedilol 6.25 mg Tablet 6.25 mg PO BID Rx Instructions: must administer with a meal/food terazosin 1 mg Capsule 1 mg PO HS valacyclovir 500 mg Tablet 500 mg PO BID aspirin 81 mg Tablet,Delayed Release (Dr/Ec) 81 mg PO BID ascorbic acid (vitamin C) [Vitamin C] 500 mg Tablet 500 mg PO DAILY trazodone 100 mg Tablet 100 mg PO HS buspirone [BuSpar] 10 mg Tablet 10 mg PO BID omeprazole 20 mg Capsule,Delayed Release(Dr/Ec) 20 mg PO DAILYBB albuterol sulfate [Ventolin HFA] 90 mcg/actuation Hfa Aerosol Inhaler 2 puff INHALATION Q4H PRN (Reason: Wheezing) cholecalciferol (vitamin D3) [Vitamin D3] 25 mcg (1,000 unit) Capsule 25 mcg PO DAILY B-complex with vitamin C [Super B Complex + C] Tablet 1 tab PO BID escitalopram oxalate [Lexapro] 10 mg Tablet 10 mg PO DAILY rosuvastatin 40 mg Tablet 40 mg PO HS tadalafil 5 mg Tablet 5 mg PO DAILY PRN (Reason: Sexual Activity) Rx Instructions: administer approximately 30min before sexual activity; do not use more than 1 dose per 24hrs vitamin E (dl, acetate) 45 mg (100 unit) Capsule 45 mg PO BID naphazoline-glycerin 0.012-0.2 % Drops 1 drp OPB DIRECTED PRN (Reason: NEEDED) ferrous sulfate 142 mg (45 mg iron) Tablet Extended Release 142 mg PO BID potassium gluconate 600 mg (99 mg) Tablet 600 mg PO DAILY guaifenesin [Mucinex] 600 mg Tablet Extended Release 12hr 600 mg PO BID PRN (Reason: Congestion) Discontinued magnesium 250 mg Tablet 250 mg PO BID Discharge Orders: Discharge Order (Routine); Ordered 07/22/24 Ordered By: Kedar Alicea Admission Data Admit Date/Time: 07/20/24 17:19 Attending Provider: Kedar Alicea Admit Provider: Amos Parrish Primary Care Provider: Derrick Granados Other Providers: Amos Parrish; Janette Perez
--- NOTE | 2024-07-22 13:31 | Communication Note ---
Date of Service: July 22, 2024 Seizure precautions: Do not drive. Avoid all other activities in which a sudden loss of consciousness would be dangerous, including but not limited to unsecured heights (scaffolding, ladders...), heavy machiner or machine tools or other machinery with moving parts, open flame, swimming pools (keeping in mind that a bathtub full of water is a small swimming pool), etc.
[2024-07-22 13:51] LABS: Hepatitis A Antibody IgM NON-REACTIVE (NON-REACTIVE); Hepatitis B Core Antibody IgM NON-REACTIVE (NON-REACTIVE)
--- NOTE | 2024-07-30 10:47 | Coding Query ---
CQ CODING QUERY To promote full compliance with coding requirements relating to patient care, provider participation is requested in all cases of sales person uncertainty. Please assist us with the question(s) below: Coding Question(s): ____ TIA was ruled out Patient had TIA ___X__ Other please specify Physician's Response(s): Possible TIA...Can not rule out Thank you Bren Lorenz Principal Diagnosis: "that condition established after study, to be chiefly responsible for occasioning the admission of the patient to the hospital for care." Co-Existing Principal Diagnosis: "when two or more diagnoses equally meet the criteria for principal diagnosis as determined by the circumstances of admission, diagnostic work up, and/or therapy provided, and the Alphabetic Index, Tabular List, or another coding guideline does not provide sequencing direction, any one of the diagnoses may be sequenced first." "When the physician has documented what appears to be a current diagnosis in the body of the record, but has not included the diagnosis in the final diagnostic statement, the physician should be asked whether the diagnosis should be added." (Source [facility] QTR90. p3-4) MICHAEL
== END 2024-07-22 13:49 | disposition home or self-care (01) ==
LOC: 2N 14:28 → ED 14:28 → SUATTDRO 17:19 → 2N 18:25